=== PATIENT | male | born 1945 | race African-American/Black ===

== ENCOUNTER 2016-11-03 20:42 | Emergency (ER) | payer MEDICARE, BC, OTHER ==
[2016-11-03] MEDS ORDERED: ASPIRIN 81 MG TABLET, CHEWABLE PO ONE (20:46)
--- NOTE | 2016-11-03 20:48 | ER Document Report ---
ED Medical Screen (RME) - General Stated Complaint: CHEST PAIN Mode of Arrival: Ambulatory Information source: Patient Notes: Patient presents to the emergency department with complaints of left-sided chest pain that started this morning. Denies fever vomiting nausea diarrhea. Denies history of cardiac disease. Patient does have history of high blood pressure. EKG sinus rhythm I have greeted and performed a rapid initial assessment of this patient. A comprehensive ED assessment and evaluation of the patient, analysis of test results and completion of the medical decision making process will be conducted by additional ED providers. TRAVEL OUTSIDE OF THE [place] IN LAST 30 DAYS: No - Related Data Allergies/Adverse Reactions: No Known Allergies Allergy (Verified 10/05/12 10:11) Past Medical History - Past Medical History Cardiac Medical History: Reports: Hx Hypercholesterolemia, Hx Hypertension Denies: Hx Heart Attack Pulmonary Medical History: Denies: Hx Asthma, Hx Tuberculosis Neurological Medical History: Denies: Hx Cerebrovascular Accident, Hx Seizures GI Medical History: Reports: Hx Diverticulitis, Hx Gastroesophageal Reflux Disease. Denies: Hx Crohn's Disease, Hx Hepatitis, Hx Hiatal Hernia, Hx Irritable Bowel, Hx Liver Failure, Hx Ulcer Musculoskeltal Medical History: Reports Hx Arthritis, Denies Hx Fibromyalgia, Denies Hx Muscular Dystrophy Traumatic Medical History: Denies: Hx Fractures Infectious Medical History: Denies: Hx Hepatitis Past Surgical History: Reports: Hx Appendectomy, Hx Bowel Surgery - r/t diverticulitis. Denies: Hx Cholecystectomy, Hx Colostomy, Hx Coronary Artery Bypass Graft, Hx Gastric Bypass Surgery, Hx Herniorrhaphy, Hx Open Heart Surgery , Hx Pacemaker, Hx Tonsillectomy - Immunizations Hx Diphtheria, Pertussis, Tetanus Vaccination: Yes
[2016-11-03 21:14] LABS: ABSOLUTE EOSINOPHILS # (AUTO) 0.2 10^3/uL (0.0-0.6); ABSOLUTE LYMPHOCYTES (AUTO) 2.4 10^3/uL (0.5-4.7); ABSOLUTE MONOCYTES (AUTO) 0.8 10^3/uL (0.1-1.4); ABSOLUTE NEUT (AUTO) 2.9 10^3/uL (1.7-8.2); BASOPHILS % (AUTO) 0.6 % (0-2); EOSINOPHILS % (AUTO) 3.4 % (0-6); HEMATOCRIT 38.7 % (37.9-51.0); HEMOGLOBIN 12.7 g/dL (13.5-17.0); HGB HCT DIFFERENCE -0.6; LYMPHOCYTES % (AUTO) 38.4 % (13-45); MEAN CORPUSCULAR HEMOGLOBIN 27.6 pg (27.0-33.4); MEAN CORPUSCULAR HGB CONC 32.8 g/dL (32.0-36.0); MEAN CORPUSCULAR VOLUME 84 fl (80-97); MONOCYTES % (AUTO) 12.3 % (3-13); RED BLOOD COUNT 4.59 10^6/uL (4.35-5.55); RED CELL DISTRIBUTION WIDTH 13.5 % (11.5-14.0); SEGMENTED NEUTROPHILS % (AUTO) 45.3 % (42-78); WHITE BLOOD COUNT 6.3 10^3/uL (4.0-10.5)
[2016-11-03 21:30] LABS: ALANINE AMINOTRANSFERASE 32 U/L (21-72); ALBUMIN 4.3 g/dL (3.5-5.0); ALKALINE PHOSPHATASE 64 U/L (38-126); ANION GAP 10 (5-19); ASPARTATE AMINO TRANSFERASE 25 U/L (17-59); BILIRUBIN,TOTAL 0.6 mg/dL (0.2-1.3); BLOOD UREA NITROGEN 14 mg/dL (7-20); CALCIUM 9.2 mg/dL (8.4-10.2); CARBON DIOXIDE 26 mmol/L (22-30); CHLORIDE 104 mmol/L (98-107); CREATINE KINASE 122 U/L (55-170); CREATININE RESULT 0.97 mg/dL (0.52-1.25); GLUCOSE 96 mg/dL (75-110); LIPASE 65.3 U/L (23-300); POTASSIUM 4.1 mmol/L (3.6-5.0); TOTAL PROTEIN 6.9 g/dL (6.3-8.2)
[2016-11-03 21:42] LABS: CREATINE KINASE MB 0.82 ng/mL (<4.55); TROPONIN I < 0.012 ng/mL
[2016-11-03] MEDS ORDERED: NITROGLYCERIN 0.4 MG/TAB 25 TAB/BOTTLE SL PRN (21:53)
[2016-11-03] MEDS ORDERED: MAG HYDROX/AL HYDROX/SIMETH SUSP 30 ML UDCUP PO ONE (22:34)
[2016-11-03] MEDS ORDERED: LIDOCAINE 2% VISCOUS SOLN 20 ML UDCUP PO ONE (22:34)
[2016-11-03] MEDS ORDERED: METOCLOPRAMIDE HCL ORAL SOLN 10 MG/10 ML UDCUP PO ONE (22:34)
[2016-11-03 23:47] LABS: CREATINE KINASE MB 0.66 ng/mL (<4.55)
--- NOTE | 2016-11-03 23:55 | ER Document Report ---
ED Cardiac - General Chief Complaint: Chest Pain > 30 Stated Complaint: CHEST PAIN Mode of Arrival: Ambulatory Notes: 71 year old male with chest pain radiating down left arm since 929 today. Pain began at rest and is constant. It is worsened by eating. He notes significant belching. No vomiting. Slight epigastric pain. He had recent endoscopy by Dr. Haas with no significant findings. Stress test was by Dr. Martin "a while ago" and was negative. Pain 1-2/5 on initial exam. TRAVEL OUTSIDE OF THE [place] IN LAST 30 DAYS: No - Related Data Allergies/Adverse Reactions: No Known Allergies Allergy (Verified 11/03/16 20:53) Past Medical History - General Information source: Patient - Social History Smoking Status: Never Smoker Chew tobacco use (# tins/day): No Frequency of alcohol use: Occasional Drug Abuse: None Family History: Reviewed & Not Pertinent Patient has suicidal ideation: No Patient has homicidal ideation: No - Past Medical History Cardiac Medical History: Reports: Hx Hypercholesterolemia, Hx Hypertension Denies: Hx Heart Attack Pulmonary Medical History: Denies: Hx Asthma, Hx Tuberculosis Neurological Medical History: Denies: Hx Cerebrovascular Accident, Hx Seizures Renal/ Medical History: Denies: Hx Peritoneal Dialysis GI Medical History: Reports: Hx Diverticulitis, Hx Gastroesophageal Reflux Disease. Denies: Hx Crohn's Disease, Hx Hepatitis, Hx Hiatal Hernia, Hx Irritable Bowel, Hx Liver Failure, Hx Ulcer Musculoskeltal Medical History: Reports Hx Arthritis, Denies Hx Fibromyalgia, Denies Hx Muscular Dystrophy Traumatic Medical History: Denies: Hx Fractures Infectious Medical History: Denies: Hx Hepatitis Past Surgical History: Reports: Hx Appendectomy, Hx Bowel Surgery - r/t diverticulitis. Denies: Hx Cholecystectomy, Hx Colostomy, Hx Coronary Artery Bypass Graft, Hx Gastric Bypass Surgery, Hx Herniorrhaphy, Hx Open Heart Surgery , Hx Pacemaker, Hx Tonsillectomy - Immunizations Hx Diphtheria, Pertussis, Tetanus Vaccination: Yes Hx Pneumococcal Vaccination: 08/09/11 Review of Systems - Review of Systems Constitutional: denies: Fever, Malaise EENT: denies: Sinus pressure, Throat pain Cardiovascular: Chest pain. denies: Heart racing, Dyspnea, Syncope Respiratory: denies: Cough, Short of breath Gastrointestinal: denies: Nausea, Vomiting Genitourinary: denies: Flank pain Musculoskeletal: denies: Leg swelling Skin: denies: Rash Hematologic/Lymphatic: denies: Swollen glands Neurological/Psychological: denies: Numbness, Tingling Physical Exam - Vital signs Vitals: Temp Pulse Resp BP Pulse Ox 98.0 F 85 18 135/71 H 94 11/03/16 20:46 11/03/16 20:46 11/03/16 20:46 11/03/16 20:46 11/03/16 20:46 - General Notes: smiling, affable male who appears much younger than stated age and is in no acute distress - HEENT Head: Normocephalic Pupils: PERRL Mouth/Lips: Normal Mucous membranes: Normal Pharynx: Normal Neck: Normal - Respiratory Respiratory status: No respiratory distress Breath sounds: Normal Chest palpation: Normal - Cardiovascular Rhythm: Regular Murmur: No - Abdominal Inspection: Normal Bowel sounds: Normal Tenderness: Nontender - Back Back: Normal - Extremities General upper extremity: Normal inspection General lower extremity: Normal inspection. No: Edema - Neurological Neuro grossly intact: Yes Orientation: AAOx4 Motor strength normal: LUE, RUE, LLE, RLE - Psychological Associated symptoms: Normal affect - Skin Skin Temperature: Warm Skin Moisture: Dry Skin Color: Normal Course - Re-evaluation Re-evalutation: 11/03/16 23:53 pt feeling better and wants to go home. Advised at minimum to check second set of enzymes. GI cocktail given for his burping. 11/04/16 00:02 symptoms completely resolved with GI cocktail. EKG, CXR and two sets of enzymes are negative. Pt prefers to go home and follow up with his doctor. REturn precautions discussed with pt and his . - Vital Signs Vital signs: Temp Pulse Resp BP Pulse Ox 98.0 F 85 18 135/71 H 94 11/03/16 20:46 11/03/16 20:46 11/03/16 20:46 11/03/16 20:46 11/03/16 20:46 - Laboratory Result Diagrams: 11/03/16 21:00 11/03/16 21:00 Laboratory results interpreted by me: 11/03/16 21:00 Hgb 12.7 L - Diagnostic Test Radiology reviewed: Image reviewed, Reports reviewed - EKG Interpretation by Me EKG shows normal: Sinus rhythm Rate: Normal Rhythm: NSR - 76, no ST elevations or depressions Discharge - Discharge Clinical Impression: Atypical chest pain Condition: Good Disposition: HOME, SELF-CARE Additional Instructions: follow up with your doctor tomorrow for further evaluation. An outpatient stress test is recommended. Return to ER if you have further pain or any new concerns. Referrals: ALBERT RODGERS MD [Primary Care Provider] - Follow up as needed
[2016-11-03 23:56] LABS: TROPONIN I < 0.012 ng/mL
[2016-11-04 01:27] VITALS: BP 121/77
--- NOTE | 2016-11-04 12:46 | EKG REPORT ---
SEVERITY:- NORMAL ECG - SINUS RHYTHM : Confirmed by: Anel Wadsworth MD 04-Nov-2016 12:46:13
== END 2016-11-04 01:00 | disposition home or self-care (01) ==
LOC: ER 20:42
DX: R07.89 Other chest pain (principal); R10.13 Epigastric pain; I10 Essential (primary) hypertension; Z90.49 Acquired absence of other specified parts of digestive tract
CPT/HCPCS: 93005; 99285; 36415; 82553; 82550; 83690; 85025; 80053; 84484; 71020; 93010; A9270 ×2; J3490

== ENCOUNTER → 2016-11-23 | Outpatient (CLI) | payer MEDICARE, OTHER ==
[~2016-11-23] MED LIST: REGADENOSON INJ 0.4 MG/5 ML DISP.SYRIN IV ONE
--- NOTE | 2016-11-23 20:47 | DRAGON STRESS TEST REPORT ---
ntravenous Lexiscan Cardiolite stress test using single photon emmision computerized tomography. Date of procedure: 11/23/2016 Ordering Provider: Dr. Anel Wadsworth. Primary Care Physician: Indication: Chest pain. Coronary risk factors: Age and dyslipidemia. Resting EKG: Sinus rhythm. Within Normal Limits Stress EKG: No changes of ischemia. The patient had no chest pain or discomfort, and there were no arrhythmias seen Reason for termination: Protocol. Conclusions: Normal EKG and hemodynamic response to IV Lexiscan. Nuclear data: At rest the patient was given 14.67 millicuries of technetium 99m sestamibi injected intravenously. As per protocol rest non gated SPECT images were obtained. Subsequently the patient was given intravenous Lexiscan at a dose of 0.4 mg in 5 mL intravenously, followed by flush with normal saline. Subsequently the stress dose of 42.9 millicuries of technetium 99m sestamibi was injected intravenously. As per protocol stress gated images were obtained. Nuclear interpretation: Review of images showed that there is bowel contamination artifact. There is a mild perfusion defect in the stress images involving the inferior wall. Also there is slightly decreased motion contraction and thickening back gated study. Of the inferior wall Segments of the myocardium had normal perfusion at rest. The rest of the segments of the myocardium had normal perfusion post stress with IV Lexiscan. All segments of the myocardium had normal motion, contraction, and thickening by gated study. T. I D. ratio was abnormal at 1.42. This may not be reliable, due to bowel contamination artifact. Computer read rest, and stress left ventricular ejection fraction were 65 %, and 57 %, respectively. Visually both the stress and rest ejection fractions were normal, and greater than 60%. Conclusion: 1. There is scintigraphic evidence of Lexiscan induced mild myocardial ischemia involving the inferior wall. 2. Cannot exclude scintigraphic evidence of mild myocardial infarction/scar involving the inferior wall. Recommendations: 1.Aggressive medical treatment of coronary artery disease. 2.Aggressive risk factor modification, and treating the underlying co- morbidities. 3. Cardiac catheterization if the patient continues to have chest pain. 4. Close medical and cardiology follow-up of the patient. [facility]
== END ==
LOC: RAD 08:01
PROVIDERS: ATTEND Specialist
DX: R07.9 Chest pain, unspecified (principal)
CPT/HCPCS: 93017; 78452; A9500; J2785; Q9969

== ENCOUNTER → 2017-03-08 | Outpatient (CLI) | payer MEDICARE, OTHER | LOC: OD 07:40 | PROVIDERS: ATTEND Internal Medicine | DX: R19.7 Diarrhea, unspecified (principal) ==

== ENCOUNTER → 2017-03-10 | Outpatient (CLI) | payer MEDICARE, OTHER ==
--- NOTE | 2017-03-10 14:27 | RADIOLOGY REPORT (SQ) ---
EXAM DESCRIPTION: CT ABD/PELVIS WITH IV ORAL COMPLETED DATE/TIME: 03/10/2017 2:02 pm REASON FOR STUDY: INCISIONAL HERNIA W/O OBSTRUCTION OR GANGRENE K43.2 INCISIONAL HERNIA WITHOUT OBS TRUCTION OR GANGRENE R11.0 NAUSEA R10.33 PERIUMBILICAL PAIN COMPARISON: 11/27/2013 TECHNIQUE: CT scan of the abdomen and pelvis performed with intravenous and oral contrast using dada rupesh scanning technique with dynamic intravenous contrast injection. Images reviewed with lung, soft t issue, and bone windows. Reconstructed coronal and sagittal MPR images reviewed. Delayed images for e valuation of the urinary system also acquired. All images stored on PACS. All CT scanners at this facility use dose modulation, iterative reconstruction, and/or weight based d osing when appropriate to reduce radiation dose to as low as reasonably achievable (ALARA). [facility]: Dose Right [facility]: CareDose [facility]: Dose Right [facility]: Teradose 4D [facility]: [employer] CONTRAST TYPE AND DOSE: 100 mL Isovue 370- low osmolar. RENAL FUNCTION: Creatinine 1.1 RADIATION DOSE: 24.02mGy. LIMITATIONS: None. FINDINGS: LOWER CHEST: No significant findings. No nodules or infiltrates. LIVER: Normal size. No masses or dilated ducts. SPLEEN: Normal size. No focal lesions. PANCREAS: No masses. No significant calcifications. No adjacent inflammation or peripancreatic fluid collections. Pancreatic duct not dilated. GALLBLADDER: No identified stones by CT criteria. No inflammatory changes to suggest cholecystitis. ADRENAL GLANDS: No significant masses or asymmetry. RIGHT KIDNEY AND URETER: No solid masses. No significant calcification. No hydronephrosis or hydroure ter. LEFT KIDNEY AND URETER: No solid masses. No significant calcification. No hydronephrosis or hydrouret er. AORTA AND VESSELS: No aneurysm. No dissection. Renal arteries, SMA, celiac without stenosis. RETROPERITONEUM: No retroperitoneal adenopathy, hemorrhage or masses. BOWEL AND PERITONEAL CAVITY: Prior right hemicolectomy. Diverticulosis. No obstruction. No visualiz ed masses. No free fluid. No inflammatory changes or thickening of bowel wall. APPENDIX: Surgically absent. PELVIS: No significant masses. Normal bladder. No free fluid. ABDOMINAL WALL: Small midline incisional hernia containing fat. BONES: No significant or acute findings. OTHER: No other significant finding. IMPRESSION: No acute findings in the abdomen or pelvis. TECHNICAL DOCUMENTATION: JOB ID: [id number] Quality ID # [id number]: Final reports with documentation of one or more dose reduction techniques (e.g., Au tomated exposure control, adjustment of the mA and/or kV according to patient size, use of iterative reconstruction technique) 2010 [employer]- All Rights Reserved
== END ==
LOC: RAD 13:06
PROVIDERS: ATTEND Internal Medicine Gastroenterology
DX: K43.2 Incisional hernia without obstruction or gangrene (principal); R11.0 Nausea; R10.33 Periumbilical pain; K21.9 Gastro-esophageal reflux disease without esophagitis
CPT/HCPCS: 74177; 82565

== ENCOUNTER 2017-07-22 08:27 | Emergency (ER) | payer MEDICARE, OTHER ==
--- NOTE | 2017-07-22 09:28 | ER Document Report ---
ED GI/ - General Chief Complaint: Abdominal Pain Stated Complaint: LEFT SIDE PAIN Time Seen by Provider: 07/22/17 09:28 Mode of Arrival: Ambulatory Information source: Patient Notes: 72 yo non CAD, non smoker, non drug, beer on weekends 1-2, htn, non dm, hyperlipedemic, GERD, diverticulitis (), partial colectomy c/o bad belching- "acid reflux" after eating or drinking, lasts 30-40 minutes, recurs after eating or drinking again, worse when supine, soreness left upper abdomen, intermittent retrosternal left side chest pain- 20 to 30min (each episode) lastly 4 pm 10-13, for 2 weeks, worse if raises left arm and after eating. PCP : ALBERT and dr. gomes. No black or blood in stools. Fam Hx: dad [place] age 63. Dr Otto 7-8 months ago, EGD, Colonoscopy done, negative. Symptoms at that time were heartburn and mild belching, not like it is now. Came to ER today because of bad belching and left sided chest pain. TRAVEL OUTSIDE OF THE [place] IN LAST 30 DAYS: No - Related Data Allergies/Adverse Reactions: No Known Allergies Allergy (Verified 07/22/17 08:28) Past Medical History - General Information source: Patient - Social History Smoking Status: Never Smoker Frequency of alcohol use: Occasional - beer on weekends Drug Abuse: None Lives with: Family Family History: Reviewed & Not Pertinent - Past Medical History Cardiac Medical History: Reports: Hx Hypercholesterolemia, Hx Hypertension Renal/ Medical History: Denies: Hx Peritoneal Dialysis GI Medical History: Reports: Hx Diverticulitis, Hx Gastroesophageal Reflux Disease Musculoskeltal Medical History: Reports Hx Arthritis Past Surgical History: Reports: Hx Appendectomy, Hx Bowel Surgery - r/t diverticulitis - Immunizations Hx Diphtheria, Pertussis, Tetanus Vaccination: Yes Hx Pneumococcal Vaccination: 08/09/11 Review of Systems - Review of Systems Constitutional: No symptoms reported EENT: No symptoms reported Cardiovascular: See HPI Respiratory: No symptoms reported Gastrointestinal: See HPI Genitourinary: No symptoms reported Male Genitourinary: No symptoms reported Musculoskeletal: No symptoms reported Skin: No symptoms reported Hematologic/Lymphatic: No symptoms reported Neurological/Psychological: No symptoms reported Physical Exam - Vital signs Vitals: Temp Pulse Resp BP Pulse Ox 98.8 F 78 18 141/84 H 97 07/22/17 08:28 07/22/17 08:28 07/22/17 08:28 07/22/17 08:28 07/22/17 08:28 Interpretation: Normal - General General appearance: Appears well, Alert - HEENT Head: Normocephalic, Atraumatic Eyes: Normal Conjunctiva: Normal Pupils: PERRL Neck: Supple. No: Lymphadenopathy - Respiratory Respiratory status: No respiratory distress Chest status: Nontender Breath sounds: Normal Chest palpation: Normal - Cardiovascular Rhythm: Regular Heart sounds: Normal auscultation Murmur: No - Abdominal Inspection: Normal Distension: No distension Bowel sounds: Normal Tenderness: Tender - mild epigastric, LUQ Organomegaly: No organomegaly. No: Hepatomegaly, Splenomegaly - Back Back: Normal, Nontender. No: CVA tenderness - Extremities General upper extremity: Normal inspection, Nontender, Normal color, Normal ROM , Normal temperature General lower extremity: Normal inspection, Nontender, Normal color, Normal ROM , Normal temperature, Normal weight bearing. No: Garrett's sign - Neurological Neuro grossly intact: Yes Cognition: Normal Orientation: AAOx4 [place] Coma Scale Eye Opening: Spontaneous Fabián Coma Scale Verbal: Oriented [place] Coma Scale Motor: Obeys Commands [place] Coma Scale Total: 15 Speech: Normal Motor strength normal: LUE, RUE, LLE, RLE Sensory: Normal - Psychological Associated symptoms: Normal affect, Normal mood - Skin Skin Temperature: Warm Skin Moisture: Dry Skin Color: Normal Skin irregularity: negative: Rash Course - Re-evaluation Re-evalutation: 07/22/17 14:43 Patient states the midline and left-sided chest pain resolved with GI cocktail. He had this pain constant all last week. The first set of cardiac enzymes are negative. EKG is normal sinus rhythm no change from previous 07/22/17 15:[address] sifuentes, he wants repeat troponin now, get abd/pelvis IV contrast CT, and add lipase 07/22/17 16:43 CT scan shows early mid descending colon diverticulitis I will start on Flagyl and Cipro. Second troponin is negative. Lipase is normal. 07/22/17 16:54 dr sifuentes saw the pt at this time. - Vital Signs Vital signs: Temp Pulse Resp BP Pulse Ox 98.0 F 78 20 135/87 H 100 07/22/17 18:28 10/14/17 18:28 07/22/17 18:28 07/22/17 18:28 07/22/17 18:28 - Laboratory Result Diagrams: 07/22/17 09:48 07/22/17 09:48 Laboratory results interpreted by me: 07/22/17 07/22/17 09:48 09:48 Hgb 12.7 L Hct 37.1 L Creatine Kinase 369 H Discharge - Discharge Clinical Impression: early diverticulitis, Burping Chest pain Qualifiers: Chest pain type: unspecified Qualified Code(s): R07.9 - Chest pain, unspecified GERD (gastroesophageal reflux disease) Qualifiers: Esophagitis presence: esophagitis presence not specified Qualified Code(s): K21.9 - Gastro-esophageal reflux disease without esophagitis Condition: Good Disposition: HOME, SELF-CARE Instructions: Ciprofloxacin ([facility]), Chest Pain of Unclear Cause ([facility]), Diverticulitis ([facility]), Metronidazole ([facility]), Reflux Disease (GERD) ([facility]) Additional Instructions: restart the dexilant, then new prescription should be less expensive copy of labs, ct scan, xrays and ekg's given to you to er if worse no alcohol take the antibioitics until gone Please complete the patient satisfaction survey if you get one, and return it.. If you do not receive a survey, then you can go to the [facility] website, [email or web address] and place your comments about your very good care. Thank you very much. It was a pleasure being your medical provider today. Prescriptions: Ciprofloxacin HCl [Cipro 750 mg Tablet] 750 mg PO BID #20 tablet Metronidazole [Flagyl 500 mg Tablet] 500 mg PO Q6H #40 tablet Pantoprazole Sodium [Protonix] 40 mg PO DAILY #30 tablet. Referrals: ALBERT GOMES MD [Primary Care Provider] - Follow up in 3-5 days KARINE OTTO MD [ACTIVE STAFF] - Follow up in 1 week
[2017-07-22] MEDS ORDERED: LIDOCAINE 2% VISCOUS SOLN 20 ML UDCUP PO ONE (09:50)
[2017-07-22] MEDS ORDERED: MAG HYDROX/AL HYDROX/SIMETH SUSP 30 ML UDCUP PO ONE (09:50)
[2017-07-22] MEDS ORDERED: ASPIRIN 81 MG TABLET, CHEWABLE PO ONE (09:50)
[2017-07-22] MEDS ORDERED: LANSOPRAZOLE 30 MG TAB.RAP.DR PO ONE (10:02)
[2017-07-22 10:28] LABS: ABSOLUTE EOSINOPHILS # (AUTO) 0.2 10^3/uL (0.0-0.6); ABSOLUTE LYMPHOCYTES (AUTO) 1.6 10^3/uL (0.5-4.7); ABSOLUTE MONOCYTES (AUTO) 0.6 10^3/uL (0.1-1.4); ABSOLUTE NEUT (AUTO) 2.7 10^3/uL (1.7-8.2); BASOPHILS % (AUTO) 0.5 % (0-2); EOSINOPHILS % (AUTO) 3.3 % (0-6); HEMATOCRIT 37.1 % (37.9-51.0); HEMOGLOBIN 12.7 g/dL (13.5-17.0); LYMPHOCYTES % (AUTO) 31.3 % (13-45); MEAN CORPUSCULAR HEMOGLOBIN 28.6 pg (27.0-33.4); MEAN CORPUSCULAR HGB CONC 34.4 g/dL (32.0-36.0); MEAN CORPUSCULAR VOLUME 83 fl (80-97); RED BLOOD COUNT 4.45 10^6/uL (4.35-5.55); RED CELL DISTRIBUTION WIDTH 13.2 % (11.5-14.0); SEGMENTED NEUTROPHILS % (AUTO) 53.9 % (42-78); WHITE BLOOD COUNT 5.1 10^3/uL (4.0-10.5)
--- NOTE | 2017-07-22 10:33 | RADIOLOGY REPORT (SQ) ---
EXAM DESCRIPTION: CHEST SINGLE VIEW COMPLETED DATE/TIME: 07/22/2017 10:17 am REASON FOR STUDY: chest pain COMPARISON: 11/03/2016 EXAM PARAMETERS: NUMBER OF VIEWS: One view. TECHNIQUE: Single frontal radiographic view of the chest acquired. RADIATION DOSE: NA LIMITATIONS: None. FINDINGS: LUNGS AND PLEURA: No opacities, masses or pneumothorax. No pleural effusion. MEDIASTINUM AND HILAR STRUCTURES: No masses. Contour normal. HEART AND VASCULAR STRUCTURES: Mild cardiomegaly BONES: No acute findings. HARDWARE: None in the chest. OTHER: No other significant finding. IMPRESSION: Mild cardiomegaly. No acute infiltrates TECHNICAL DOCUMENTATION: JOB ID: [id number]
[2017-07-22 10:49] LABS: ALANINE AMINOTRANSFERASE 29 U/L (21-72); ALBUMIN 3.9 g/dL (3.5-5.0); ALKALINE PHOSPHATASE 58 U/L (38-126); ANION GAP 10 (5-19); ASPARTATE AMINO TRANSFERASE 30 U/L (17-59); BILIRUBIN,DIRECT 0.3 mg/dL (0.0-0.4); BILIRUBIN,TOTAL 0.7 mg/dL (0.2-1.3); BLOOD UREA NITROGEN 10 mg/dL (7-20); CALCIUM 9.2 mg/dL (8.4-10.2); CARBON DIOXIDE 26 mmol/L (22-30); CHLORIDE 105 mmol/L (98-107); CREATINE KINASE 369 U/L (55-170); CREATININE RESULT 0.93 mg/dL (0.52-1.25); GLUCOSE 91 mg/dL (75-110); POTASSIUM 3.9 mmol/L (3.6-5.0); SODIUM 140.6 mmol/L (137-145); TOTAL PROTEIN 6.4 g/dL (6.3-8.2)
[2017-07-22 11:01] LABS: CREATINE KINASE MB 2.04 ng/mL (<4.55)
--- NOTE | 2017-07-22 11:01 | EKG REPORT ---
SEVERITY:- NORMAL ECG - SINUS RHYTHM : Confirmed by: Jovi Haskins MD 22-Jul-2017 11:01:42
[2017-07-22 11:04] LABS: TROPONIN I < 0.012 ng/mL
[2017-07-22 13:21] LABS: APPEARANCE,URINE CLEAR; BILIRUBIN,URINE NEGATIVE (NEGATIVE); GLUCOSE, URINE NEGATIVE (NEGATIVE); KETONES,URINE NEGATIVE (NEGATIVE); LEUKOCYTE ESTERASE,URINE NEGATIVE (NEGATIVE); NITRITE,URINE NEGATIVE (NEGATIVE); PROTEIN,URINE NEGATIVE (NEGATIVE); URINE SPECIFIC GRAVITY 1.009; UROBILINOGEN,URINE NEGATIVE mg/dL (<2.0)
--- NOTE | 2017-07-22 16:37 | ER Document Report ---
Doctor's Note Notes: Pt is a 72 yo M with PMH of htn, hyperlipedemic, GERD, diverticulitis (09), partial colectomy who presents with two weeks of intermittent "bad belching acid reflux" after eating or drinking, lasts 30-40 minutes, with retrosternal left side chest pain. Pt is exaserbated when supine, worse if raises left arm and after eating. Patient has a history of this upper epigastric discomfort previously with previous recent CT, endoscopy, with follow-up by gastroenterology. Examination is recorded by the nurse practitioner. In summary, patient is sitting up smiling in no acute distress. Heart and lung examination is unremarkable. Patient has some very mild tenderness to the epigastric region without rebound or guarding. No lower abdominal tenderness. No palpable masses or abdominal bruits present. Patient has no calf pain, leg swelling, or obvious edema present. EKG shows a heart rate of 64, normal sinus rhythm, normal axis, no obvious ST elevation or depression. Chest x-ray shows normal heart, normal mediastinum, no fractures, normal lung padilla, no pneumothorax. Given the above extensive history and physical examination with the patient's age, we will obtain a cardiac panel, liver panel, lipase, and a CT scan of the abdomen and pelvis. If this is unremarkable for acute pathology, we will obtain a repeat 3 hour troponin. If this too was unremarkable, we will most likely discharge the patient home with strict return precautions and follow-up with the play reader.
--- NOTE | 2017-07-22 16:40 | RADIOLOGY REPORT (SQ) ---
EXAM DESCRIPTION: CT ABD/PELVIS WITH IV ONLY COMPLETED DATE/TIME: 07/22/2017 3:52 pm REASON FOR STUDY: burping, left chest pain, mild epigastric tender COMPARISON: 02/25/2016 TECHNIQUE: CT scan of the abdomen and pelvis performed using helical scanning technique with dynamic intravenous contrast injection. No oral contrast. Images reviewed with lung, soft tissue, and bone windows. Reconstructed coronal and sagittal MPR images reviewed. Delayed images for evaluation of the urinary system also acquired. All images stored on PACS. All CT scanners at this facility use dose modulation, iterative reconstruction, and/or weight based d osing when appropriate to reduce radiation dose to as low as reasonably achievable (ALARA). [facility]: Dose Right [facility]: CareDose [facility]: Dose Right [facility]: Teradose 4D [facility]: [employer] CONTRAST TYPE AND DOSE: contrast/concentration: Isovue 370.00 mg/ml; Total Contrast Delivered: 100.0 ml; Total Saline Delivered: 72.0 ml RENAL FUNCTION: BUN 10; creatinine 0.93 RADIATION DOSE: Up-to-date CT equipment and radiation dose reduction techniques were employed. CTDIv ol: 14.4 - 18.9 mGy. DLP: 1995 mGy-cm.. LIMITATIONS: None. FINDINGS: LOWER CHEST: No significant findings. No nodules or infiltrates. LIVER: Normal size. No masses. No dilated ducts. SPLEEN: Normal size. No focal lesions. PANCREAS: No masses. No significant calcifications. No adjacent inflammation or peripancreatic fluid collections. Pancreatic duct not dilated. GALLBLADDER: No identified stones by CT criteria. No inflammatory changes to suggest cholecystitis. ADRENAL GLANDS: No significant masses or asymmetry. RIGHT KIDNEY AND URETER: No solid masses. No significant calcifications. No hydronephrosis or hyd roureter. LEFT KIDNEY AND URETER: No solid masses. No significant calcifications. No hydronephrosis or hydr oureter. AORTA AND VESSELS: No aneurysm. No dissection. Renal arteries, SMA, celiac without stenosis. RETROPERITONEUM: No retroperitoneal adenopathy, hemorrhage or masses. BOWEL AND PERITONEAL CAVITY: Status post partial colectomy ; the anastomosis appears to be intact. B ackground of diverticulosis noting trace mesenteric fat stranding adjacent to the descending colon. APPENDIX: Surgically absent. PELVIS: No mass. No free fluid. Normal bladder. ABDOMINAL WALL: No masses. No hernias. BONES: No significant or acute findings. OTHER: No other significant finding. IMPRESSION: Findings suggest mild or early diverticulitis involving the mid descending colon. Statu s post partial colectomy without evidence of anastomotic complication. TECHNICAL DOCUMENTATION: JOB ID: [id number] Quality ID # [id number]: Final reports with documentation of one or more dose reduction techniques (e.g., Au tomated exposure control, adjustment of the mA and/or kV according to patient size, use of iterative reconstruction technique) 2010 [employer]- All Rights Reserved
[2017-07-22] MEDS ORDERED: METRONIDAZOLE 500 MG TABLET PO ONE (16:42)
[2017-07-22] MEDS ORDERED: CIPROFLOXACIN HCL 750 MG TABLET PO ONE (16:42)
[2017-07-22 18:31] VITALS: BP 135/87
== END 2017-07-22 18:28 | disposition home or self-care (01) ==
LOC: ER 08:27
DX: K57.32 Diverticulitis of large intestine without perforation or abscess without bleeding (principal); K21.9 Gastro-esophageal reflux disease without esophagitis; R07.9 Chest pain, unspecified; R14.2 Eructation; R10.812 Left upper quadrant abdominal tenderness; R10.816 Epigastric abdominal tenderness; I10 Essential (primary) hypertension; Z90.49 Acquired absence of other specified parts of digestive tract
CPT/HCPCS: 93005; 99284; 36415; 87086; 82553; 82550; 83690; 83735; 85025; 80053; 81001; 84484; 71010; 74177; 93010; A9270 ×4; J3490

== ENCOUNTER 2017-08-22 08:13 | Emergency (ER) | payer MEDICARE, OTHER ==
--- NOTE | 2017-08-22 08:59 | ER Document Report ---
ED GI/ - General Mode of Arrival: Ambulatory Information source: Patient TRAVEL OUTSIDE OF THE [place] IN LAST 30 DAYS: No <KEARA FRYE - Last Filed: 08/22/17 10:34> <KADI CARUSO - Last Filed: 08/22/17 15:22> - General Chief Complaint: Abdominal Pain Stated Complaint: STOMACH PAIN, HEADACHE, LEFT SIDE WEAKNESS Time Seen by Provider: 08/22/17 08:26 Notes: Patient is a 72 year old male that presents to the emergency department today with complaints of a left sided headache and left lower abdominal pain. Patient states he has a history of diverticulitis and his symptoms today are consistent with his previous diverticulitis flares. Patient mentions that he has had major vision changes in his left eye over the last six months without any reason that he knows of. (KEARA FRYE) - Related Data Allergies/Adverse Reactions: No Known Allergies Allergy (Verified 08/22/17 08:22) Past Medical History - General Information source: Patient - Social History Smoking Status: Never Smoker Cigarette use (# per day): No Frequency of alcohol use: None Drug Abuse: None Lives with: Family Family History: Reviewed & Not Pertinent Patient has suicidal ideation: No Patient has homicidal ideation: No - Past Medical History Cardiac Medical History: Reports: Hx Hypercholesterolemia, Hx Hypertension GI Medical History: Reports: Hx Diverticulitis, Hx Gastroesophageal Reflux Disease Musculoskeltal Medical History: Reports Hx Arthritis Past Surgical History: Reports: Hx Appendectomy, Hx Bowel Surgery - r/t diverticulitis - Immunizations Hx Diphtheria, Pertussis, Tetanus Vaccination: Yes Hx Pneumococcal Vaccination: 08/09/11 <KEARA FRYE - Last Filed: 08/22/17 10:34> Review of Systems - Review of Systems Constitutional: No symptoms reported EENT: No symptoms reported Cardiovascular: No symptoms reported Respiratory: No symptoms reported Gastrointestinal: See HPI, Abdominal pain Genitourinary: No symptoms reported Male Genitourinary: No symptoms reported Musculoskeletal: No symptoms reported Skin: No symptoms reported Hematologic/Lymphatic: No symptoms reported Neurological/Psychological: See HPI, Headaches -: Yes All other systems reviewed and negative <KEARA FRYE - Last Filed: 08/22/17 10:34> Physical Exam - Vital signs Interpretation: Normal - General General appearance: Appears well, Alert - HEENT Head: Normocephalic, Atraumatic Eyes: Normal Pupils: PERRL - Respiratory Respiratory status: No respiratory distress Chest status: Nontender Breath sounds: Normal Chest palpation: Normal - Cardiovascular Rhythm: Regular Heart sounds: Normal auscultation Murmur: No - Abdominal Inspection: Normal Distension: No distension Bowel sounds: Normal Tenderness: Tender - LLQ. No: Guarding, Rebound Organomegaly: No organomegaly - Back Back: Normal, Nontender - Extremities General upper extremity: Normal inspection, Nontender, Normal color, Normal ROM , Normal temperature General lower extremity: Normal inspection, Nontender, Normal color, Normal ROM , Normal temperature, Normal weight bearing. No: Garrett's sign - Neurological Neuro grossly intact: Yes Cognition: Normal Orientation: AAOx4 Fabián Coma Scale Eye Opening: Spontaneous [place] Coma Scale Verbal: Oriented Fabián Coma Scale Motor: Obeys Commands [place] Coma Scale Total: 15 Speech: Normal Motor strength normal: LUE, RUE, LLE, RLE Sensory: Normal - Psychological Associated symptoms: Normal affect, Normal mood - Skin Skin Temperature: Warm Skin Moisture: Dry Skin Color: Normal <KADI CARUSO - Last Filed: 08/22/17 15:22> - Vital signs Vitals: Temp Pulse Resp BP Pulse Ox 98.6 F 72 20 140/84 H 97 08/22/17 08:19 08/22/17 08:19 08/22/17 08:19 08/22/17 08:19 08/22/17 08:19 Course - Laboratory Result Diagrams: 08/22/17 08:45 08/22/17 08:45 <KEARA FRYE - Last Filed: 08/22/17 10:34> - Laboratory Result Diagrams: 08/22/17 08:45 08/22/17 08:45 - Diagnostic Test Radiology reviewed: Reports reviewed <KADI CARUSO - Last Filed: 08/22/17 15:22> - Re-evaluation Re-evalutation: 08/22/17 15:20 Patient with no acute findings on CT. Cannot do MRI due to patient having metal in his face. Patient's headache is resolved after medication. Patient with diverticulitis on CT. Patient will have Cipro and Flagyl initiated. Patient has stable vitals and is feeling well. Able to take p.o. He is instructed to follow a clear liquid and then bland diet. He is to return immediately if he has any further symptoms or concerns. Understands and agrees with plan. Stable for discharge. (KADI CARUSO) - Vital Signs Vital signs: Temp Pulse Resp BP Pulse Ox 98.6 F 72 16 140/80 H 95 08/22/17 08:19 08/22/17 08:19 08/22/17 14:33 08/22/17 14:33 08/22/17 14:33 - Laboratory Laboratory results interpreted by me: 08/22/17 08/22/17 08/22/17 08:45 08:45 08:45 Hgb 12.9 L VBG HCO3 32.2 H Total Protein 5.9 L Discharge <KEARA FRYE - Last Filed: 08/22/17 10:34> <KADI CARUSO - Last Filed: 08/22/17 15:22> - Discharge Clinical Impression: Diverticulitis Qualifiers: Diverticulitis site: large intestine Diverticulitis bleeding: without bleeding Diverticulitis complication: without perforation or abscess Qualified Code(s): K57.32 - Diverticulitis of large intestine without perforation or abscess without bleeding Headache Qualifiers: Headache type: unspecified Headache chronicity pattern: acute headache Intractability: not intractable Qualified Code(s): R51 - Headache Condition: Stable Disposition: HOME, SELF-CARE Instructions: Diverticulitis ([facility]), Low Residue Diet ([facility]) Additional Instructions: Please follow-up with your doctor this week. Return immediately if you have any worsening symptoms or concerns. Prescriptions: Ondansetron [Zofran Odt 4 mg Tablet] 1 tab PO Q6HP PRN #15 tab.rapdis PRN Reason: For Nausea/Vomiting Ciprofloxacin HCl [Cipro 500 mg Tablet] 500 mg PO BID #30 tablet Metronidazole [Flagyl 500 mg Tablet] 500 mg PO Q6H #56 tablet Tramadol HCl 50 mg PO TIDP PRN #20 tablet PRN Reason: Scribe Attestation: 08/22/17 15:22 I personally performed the services described in the documentation, reviewed and edited the documentation which was dictated to the scribe in my presence, and it accurately records my words and actions. (KADI CARUSO) Scribe Documentation - Scribe Written by Scribe:: Nuria Trejo, 08/22/2017 1038 acting as scribe for :: Errol <KEARA FRYE - Last Filed: 08/22/17 10:34>
[2017-08-22 09:00] LABS: ABSOLUTE EOSINOPHILS # (AUTO) 0.2 10^3/uL (0.0-0.6); ABSOLUTE LYMPHOCYTES (AUTO) 1.6 10^3/uL (0.5-4.7); ABSOLUTE MONOCYTES (AUTO) 0.5 10^3/uL (0.1-1.4); ABSOLUTE NEUT (AUTO) 2.3 10^3/uL (1.7-8.2); BASOPHILS % (AUTO) 0.7 % (0-2); EOSINOPHILS % (AUTO) 4.4 % (0-6); HEMATOCRIT 38.5 % (37.9-51.0); HEMOGLOBIN 12.9 g/dL (13.5-17.0); HGB HCT DIFFERENCE 0.2; LYMPHOCYTES % (AUTO) 34.4 % (13-45); MEAN CORPUSCULAR HGB CONC 33.5 g/dL (32.0-36.0); MEAN CORPUSCULAR VOLUME 84 fl (80-97); MONOCYTES % (AUTO) 10.6 % (3-13); RED BLOOD COUNT 4.61 10^6/uL (4.35-5.55); RED CELL DISTRIBUTION WIDTH 12.9 % (11.5-14.0); SEGMENTED NEUTROPHILS % (AUTO) 49.9 % (42-78); WHITE BLOOD COUNT 4.7 10^3/uL (4.0-10.5)
[2017-08-22 09:04] LABS: VENOUS BLOOD BASE EXCESS 4.8 mmol/L; VENOUS BLOOD HCO3 32.2 mmol/L (20-32); VENOUS BLOOD PCO2 59.3 mmHg (35-63); VENOUS BLOOD PH 7.35 (7.30-7.42)
--- NOTE | 2017-08-22 09:11 | RADIOLOGY REPORT (SQ) ---
EXAM DESCRIPTION: CHEST PA/LAT COMPLETED DATE/TIME: 08/22/2017 9:04 am REASON FOR STUDY: near syncope COMPARISON: October 2016 EXAM PARAMETERS: NUMBER OF VIEWS: two views TECHNIQUE: Digital Frontal and Lateral radiographic views of the chest acquired. RADIATION DOSE: NA LIMITATIONS: none FINDINGS: LUNGS AND PLEURA: No opacities, masses or pneumothorax. No pleural effusion. MEDIASTINUM AND HILAR STRUCTURES: No masses or contour abnormalities. HEART AND VASCULAR STRUCTURES: Heart normal size. No evidence for failure. BONES: No acute findings. HARDWARE: None in the chest. OTHER: No other significant finding. IMPRESSION: NO SIGNIFICANT RADIOGRAPHIC FINDING IN THE CHEST. TECHNICAL DOCUMENTATION: JOB ID: [id number] [employer]- All Rights Reserved
[2017-08-22 09:22] LABS: PROTHROMBIN TIME 13.7 SEC (11.4-15.4)
[2017-08-22 09:32] LABS: ALANINE AMINOTRANSFERASE 33 U/L (21-72); ALBUMIN 3.8 g/dL (3.5-5.0); ALKALINE PHOSPHATASE 63 U/L (38-126); ANION GAP 8 (5-19); ASPARTATE AMINO TRANSFERASE 30 U/L (17-59); BILIRUBIN,DIRECT 0.3 mg/dL (0.0-0.4); BILIRUBIN,TOTAL 0.4 mg/dL (0.2-1.3); BLOOD UREA NITROGEN 10 mg/dL (7-20); CARBON DIOXIDE 29 mmol/L (22-30); CHLORIDE 104 mmol/L (98-107); CREATININE RESULT 0.85 mg/dL (0.52-1.25); GLUCOSE 97 mg/dL (75-110); POTASSIUM 4.6 mmol/L (3.6-5.0); SODIUM 141.1 mmol/L (137-145); TOTAL PROTEIN 5.9 g/dL (6.3-8.2)
[2017-08-22 09:33] LABS: APPEARANCE,URINE CLEAR; BILIRUBIN,URINE NEGATIVE (NEGATIVE); GLUCOSE, URINE NEGATIVE (NEGATIVE); KETONES,URINE NEGATIVE (NEGATIVE); LEUKOCYTE ESTERASE,URINE NEGATIVE (NEGATIVE); NITRITE,URINE NEGATIVE (NEGATIVE); PROTEIN,URINE NEGATIVE (NEGATIVE); URINE SPECIFIC GRAVITY 1.009; UROBILINOGEN,URINE NEGATIVE mg/dL (<2.0)
[2017-08-22] MEDS ORDERED: ACETAMINOPHEN 325 MG TABLET PO ONE (09:40)
--- NOTE | 2017-08-22 09:40 | EKG REPORT ---
SEVERITY:- NORMAL ECG - SINUS RHYTHM : Confirmed by: Cony Marr 22-Aug-2017 09:39:44
--- NOTE | 2017-08-22 10:18 | RADIOLOGY REPORT (SQ) ---
EXAM DESCRIPTION: CT LTD RENAL STONE PROTOCOL ON COMPLETED DATE/TIME: 08/22/2017 9:54 am REASON FOR STUDY: LLQ, flank pain COMPARISON: 07/22/2017 TECHNIQUE: CT scan of the abdomen and pelvis performed without intravenous or oral contrast. Images reviewed with lung, soft tissue, and bone windows. Reconstructed coronal and sagittal MPR images revi ewed. All images stored on PACS. All CT scanners at this facility use dose modulation, iterative reconstruction, and/or weight based d osing when appropriate to reduce radiation dose to as low as reasonably achievable (ALARA). [facility]: Dose Right [facility]: CareDose [facility]: Dose Right [facility]: Teradose 4D [facility]: LISNR RADIATION DOSE: Up-to-date CT equipment and radiation dose reduction techniques were employed. CTDIv ol: 12.9 mGy. DLP: 697 mGy-cm.mGy. LIMITATIONS: None. FINDINGS: LOWER CHEST: No significant findings. No nodules or infiltrates. NON-CONTRASTED LIVER, SPLEEN, ADRENALS: Evaluation limited by lack of IV contrast. No identified sign ificant masses. PANCREAS: No masses. No peripancreatic inflammatory changes. GALLBLADDER: No identified stones by CT criteria. No inflammatory changes to suggest cholecystitis. RIGHT KIDNEY AND URETER: No suspicious masses. Assessment limited by lack of IV contrast. No signif icant calcifications. No hydronephrosis or hydroureter. LEFT KIDNEY AND URETER: No suspicious masses. Assessment limited by lack of IV contrast. No signifi cant calcifications. No hydronephrosis or hydroureter. AORTA AND RETROPERITONEUM: No aneurysm. No retroperitoneal masses or adenopathy. BOWEL AND PERITONEAL CAVITY: There is thickening of the quinonez of a segment of the mid descending colo n with edematous or inflammatory changes in the adjacent mesenteric fat. Multiple diverticula are id entified and the appearance is consistent with diverticulitis. These findings are more extensive whe n correlated with the previous study. Again the patient is status post partial colectomy with surgic al sutures being identified in the right upper quadrant. APPENDIX: Status post appendectomy. PELVIS, BLADDER, AND ABDOMINAL WALL:No abnormal masses. No free fluid. Bladder normal. BONES: No significant findings. OTHER: No other significant finding. IMPRESSION: Findings consistent with diverticulitis involving a segment of the mid descending colon. These changes appear more extensive as compared to the previous study. Other findings as noted abo ve COMMENT: Quality ID # [id number]: Final reports with documentation of one or more dose reduction techniques (e.g., Automated exposure control, adjustment of the mA and/or kV according to patient size, use of iterative reconstruction technique) TECHNICAL DOCUMENTATION: JOB ID: [id number] [employer]- All Rights Reserved
--- NOTE | 2017-08-22 10:20 | RADIOLOGY REPORT (SQ) ---
EXAM DESCRIPTION: SKULL 1-3 VIEWS COMPLETED DATE/TIME: 08/22/2017 10:05 am REASON FOR STUDY: FOREIGN BODY EVAL FOR MRI CLEARANCE COMPARISON: None. TECHNIQUE: AP and lateral views of the skull LIMITATIONS: None. FINDINGS: A metallic foreign body is identified in the superficial soft tissues in the right frontal region laterally. Bony calvaria is intact. Paranasal sinuses are well-aerated. IMPRESSION: Metallic foreign body in the superficial soft tissues in the right frontal region latera lly. TECHNICAL DOCUMENTATION: JOB ID: [id number] [employer]- All Rights Reserved
--- NOTE | 2017-08-22 10:31 | RADIOLOGY REPORT (SQ) ---
EXAM DESCRIPTION: CT HEAD WITHOUT COMPLETED DATE/TIME: 08/22/2017 10:17 am REASON FOR STUDY: headache, vision changes COMPARISON: None. TECHNIQUE: Axial images acquired through the brain without intravenous contrast. Images reviewed wi th bone, brain and subdural windows. Images stored on PACS. All CT scanners at this facility use dose modulation, iterative reconstruction, and/or weight based d osing when appropriate to reduce radiation dose to as low as reasonably achievable (ALARA). [facility]: Dose Right [facility]: CareDose [facility]: Dose Right [facility]: Teradose 4D [facility]: [employer] RADIATION DOSE: Up-to-date CT equipment and radiation dose reduction techniques were employed. CTDIv ol: 64.6 mGy. DLP: 1163 mGy-cm. mGy. LIMITATIONS: None. FINDINGS: VENTRICLES: Normal size and contour. CEREBRUM: No masses. No hemorrhage. No midline shift. No evidence for acute infarction. Normal gra y/white matter differentiation. No areas of low density in the white matter. CEREBELLUM: No masses. No hemorrhage. No alteration of density. No evidence for acute infarction. EXTRAAXIAL SPACES: No fluid collections. No masses. ORBITS AND GLOBE: No intra- or extraconal masses. Normal contour of globe without masses. CALVARIUM: No fracture. PARANASAL SINUSES: A large mucosal polyp or retention cyst is identified in the right maxillary antra . SOFT TISSUES: No mass or hematoma. OTHER: Metallic foreign body is identified in the superficial soft tissues in the right frontal regio n laterally. IMPRESSION: No significant intracranial abnormalities were identified. Other findings as noted abov e EVIDENCE OF ACUTE STROKE: NO. COMMENT: Quality ID # [id number]: Final reports with documentation of one or more dose reduction techniques (e.g., Automated exposure control, adjustment of the mA and/or kV according to patient size, use of iterative reconstruction technique) TECHNICAL DOCUMENTATION: JOB ID: [id number] [employer]- All Rights Reserved
[2017-08-22] MEDS ORDERED: PROCHLORPERAZINE EDISYLATE INJ 10 MG/2 ML VIAL IV ONE (12:53)
[2017-08-22] MEDS ORDERED: CIPROFLOXACIN HCL 500 MG TABLET PO ONE (12:53)
[2017-08-22] MEDS ORDERED: DIPHENHYDRAMINE HCL 50 MG/ML VIAL IV ONE (12:53)
[2017-08-22] MEDS ORDERED: METRONIDAZOLE 500 MG TABLET PO ONE (12:53)
[2017-08-22 14:39] VITALS: BP 140/80
== END 2017-08-22 14:35 | disposition home or self-care (01) ==
LOC: ER 08:13
DX: K57.32 Diverticulitis of large intestine without perforation or abscess without bleeding (principal); R51 Headache; H53.9 Unspecified visual disturbance; I10 Essential (primary) hypertension; Z90.49 Acquired absence of other specified parts of digestive tract
CPT/HCPCS: 93005; 99285; 96374; 96375; 36415; 87040; 87086; 85025; 85610; 80053; 81001; 84484; 82803; 83605; 71020; 70250; 70450; 76380; 93010; A9270 ×3; J1200; J0780

== ENCOUNTER 2017-10-05 07:24 | Emergency (ER) | payer MEDICARE, OTHER ==
[2017-10-05] MEDS ORDERED: ASPIRIN 81 MG TABLET, CHEWABLE PO ONE ×2 (07:38→08:29)
[2017-10-05 07:52] LABS: ABSOLUTE EOSINOPHILS # (AUTO) 0.2 10^3/uL (0.0-0.6); ABSOLUTE LYMPHOCYTES (AUTO) 1.7 10^3/uL (0.5-4.7); ABSOLUTE MONOCYTES (AUTO) 0.7 10^3/uL (0.1-1.4); ABSOLUTE NEUT (AUTO) 3.3 10^3/uL (1.7-8.2); BASOPHILS % (AUTO) 0.5 % (0-2); EOSINOPHILS % (AUTO) 3.1 % (0-6); HEMATOCRIT 40.2 % (37.9-51.0); HEMOGLOBIN 13.4 g/dL (13.5-17.0); LYMPHOCYTES % (AUTO) 28.2 % (13-45); MEAN CORPUSCULAR HEMOGLOBIN 27.6 pg (27.0-33.4); MEAN CORPUSCULAR HGB CONC 33.4 g/dL (32.0-36.0); MEAN CORPUSCULAR VOLUME 83 fl (80-97); MONOCYTES % (AUTO) 11.5 % (3-13); PLATELET COUNT 211 10^3/uL (150-450); RED BLOOD COUNT 4.85 10^6/uL (4.35-5.55); RED CELL DISTRIBUTION WIDTH 13.4 % (11.5-14.0); SEGMENTED NEUTROPHILS % (AUTO) 56.7 % (42-78); TOTAL CELLS COUNTED % (AUTO) 100 %; WHITE BLOOD COUNT 5.9 10^3/uL (4.0-10.5)
[2017-10-05] MEDS ORDERED: METOCLOPRAMIDE HCL ORAL SOLN 10 MG/10 ML UDCUP PO ONE (08:24)
[2017-10-05] MEDS ORDERED: MAG HYDROX/AL HYDROX/SIMETH SUSP 30 ML UDCUP PO ONE (08:24)
[2017-10-05] MEDS ORDERED: LIDOCAINE 2% VISCOUS SOLN 20 ML UDCUP PO ONE (08:24)
[2017-10-05 08:31] LABS: TROPONIN I < 0.012 ng/mL
--- NOTE | 2017-10-05 08:31 | RADIOLOGY REPORT (SQ) ---
EXAM DESCRIPTION: CHEST SINGLE VIEW COMPLETED DATE/TIME: 10/05/2017 8:08 am REASON FOR STUDY: chest pain COMPARISON: 08/22/2017. EXAM PARAMETERS: NUMBER OF VIEWS: One view. TECHNIQUE: Single frontal radiographic view of the chest acquired. RADIATION DOSE: NA LIMITATIONS: None. FINDINGS: LUNGS AND PLEURA: No opacities, masses or pneumothorax. No pleural effusion. MEDIASTINUM AND HILAR STRUCTURES: No masses. Contour normal. HEART AND VASCULAR STRUCTURES: Heart upper limits of normal in size. Normal vasculature. BONES: No acute findings. HARDWARE: None in the chest. OTHER: No other significant finding. IMPRESSION: NO ACUTE RADIOGRAPHIC FINDING IN THE CHEST. TECHNICAL DOCUMENTATION: JOB ID: [id number] [employer]- All Rights Reserved
[2017-10-05 08:35] LABS: ALANINE AMINOTRANSFERASE 29 U/L (21-72); ALBUMIN 4.2 g/dL (3.5-5.0); ALKALINE PHOSPHATASE 60 U/L (38-126); ANION GAP 8 (5-19); ASPARTATE AMINO TRANSFERASE 24 U/L (17-59); BILIRUBIN,DIRECT 0.3 mg/dL (0.0-0.4); BILIRUBIN,TOTAL 0.7 mg/dL (0.2-1.3); BLOOD UREA NITROGEN 17 mg/dL (7-20); CALCIUM 9.8 mg/dL (8.4-10.2); CARBON DIOXIDE 28 mmol/L (22-30); CHLORIDE 103 mmol/L (98-107); CREATINE KINASE 87 U/L (55-170); GLUCOSE 92 mg/dL (75-110); POTASSIUM 4.1 mmol/L (3.6-5.0); TOTAL PROTEIN 6.9 g/dL (6.3-8.2)
--- NOTE | 2017-10-05 08:42 | ER Document Report ---
ED General - General Chief Complaint: Chest Pain Stated Complaint: CHEST PAIN Time Seen by Provider: 10/05/17 07:38 Mode of Arrival: Ambulatory Information source: Patient Notes: 72-year-old male history of gastric reflux presents with complaints of burning sensation in the midsternal region every day for the past 4 weeks. Patient states this is similar to his gastric reflux. 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 IN LAST 30 DAYS: No - HPI Onset: Other - Daily constant for 1 month Onset/Duration: Persistent Quality of pain: Burning Severity: Mild Pain Level: 1 Associated symptoms: Chest pain Exacerbated by: Other - Burping Relieved by: Denies Similar symptoms previously: Yes Recently seen / treated by doctor: Yes - Related Data Allergies/Adverse Reactions: No Known Allergies Allergy (Verified 08/22/17 08:22) Past Medical History - Social History Smoking Status: Never Smoker Cigarette use (# per day): No Chew tobacco use (# tins/day): No Smoking Education Provided: No Frequency of alcohol use: Heavy Drug Abuse: None Family History: Reviewed & Not Pertinent Patient has suicidal ideation: No Patient has homicidal ideation: No - Past Medical History Cardiac Medical History: Reports: Hx Hypercholesterolemia, Hx Hypertension Denies: Hx Heart Attack Pulmonary Medical History: Denies: Hx Asthma, Hx Tuberculosis Neurological Medical History: Denies: Hx Cerebrovascular Accident, Hx Seizures Renal/ Medical History: Denies: Hx Peritoneal Dialysis GI Medical History: Reports: Hx Diverticulitis, Hx Gastroesophageal Reflux Disease. Denies: Hx Crohn's Disease, Hx Hepatitis, Hx Hiatal Hernia, Hx Irritable Bowel, Hx Liver Failure, Hx Pancreatitis, Hx Ulcer Musculoskeltal Medical History: Reports Hx Arthritis, Denies Hx Fibromyalgia, Denies Hx Muscular Dystrophy Traumatic Medical History: Denies: Hx Fractures Infectious Medical History: Denies: Hx Hepatitis Past Surgical History: Reports: Hx Appendectomy, Hx Bowel Surgery - r/t diverticulitis. Denies: Hx Cholecystectomy, Hx Colostomy, Hx Coronary Artery Bypass Graft, Hx Gastric Bypass Surgery, Hx Herniorrhaphy, Hx Open Heart Surgery , Hx Pacemaker, Hx Tonsillectomy - Immunizations Hx Diphtheria, Pertussis, Tetanus Vaccination: Yes Hx Pneumococcal Vaccination: 08/09/11 Review of Systems - Review of Systems Notes: REVIEW OF SYSTEMS: CONSTITUTIONAL : Denies fever, chills, or sweats. Denies recent illness. EENT: Denies eye, ear, throat, or mouth pain or symptoms. Denies nasal or sinus congestion or discharge. Denies throat, tongue, or mouth swelling or difficulty swallowing. CARDIOVASCULAR: Denies chest pain. Denies palpitations or racing or irregular heart beat. Denies ankle edema. Admits to esophageal pain RESPIRATORY: Denies cough, cold, or chest congestion. Denies shortness of breath, difficulty breathing, or wheezing. GASTROINTESTINAL: Admits gastric reflux GENITOURINARY: Denies difficulty urinating, painful urination, burning, frequency, blood in urine, or discharge. MUSCULOSKELETAL: Denies back or neck pain or stiffness. Denies joint pain or swelling. SKIN: Denies rash, lesions or sores. HEMATOLOGIC : Denies easy bruising or bleeding. LYMPHATIC: Denies swollen, enlarged glands. NEUROLOGICAL: Denies confusion or altered mental status. Denies passing out or loss of consciousness. Denies dizziness or lightheadedness. Denies headache. Denies weakness or paralysis or loss of use of either side. Denies problems with gait or speech. Denies sensory loss, numbness, or tingling. Denies seizures. PSYCHIATRIC: Denies anxiety or stress. Denies depression, suicidal ideation, or homicidal ideation. ALL OTHER SYSTEMS REVIEWED AND NEGATIVE. Dictation was performed using [employer] voice recognition software PHYSICAL EXAMINATION: GENERAL: Well-appearing, well-nourished and in no acute distress. HEAD: Atraumatic, normocephalic. EYES: Pupils equal round and reactive to light, extraocular movements intact, sclera anicteric, conjunctiva are normal. ENT: Nares patent, oropharynx clear without exudates. Moist mucous membranes. NECK: Normal range of motion, supple without lymphadenopathy LUNGS: Breath sounds clear to auscultation bilaterally and equal. No wheezes rales or rhonchi. HEART: Regular rate and rhythm without murmurs ABDOMEN: Soft, nontender, nondistended abdomen. No guarding, no rebound. No masses appreciated. Musculoskeletal: Normal range of motion, no pitting or edema. No cyanosis. NEUROLOGICAL: Cranial nerves grossly intact. Normal speech, normal gait. Normal sensory, motor exams PSYCH: Normal mood, normal affect. SKIN: Warm, Dry, normal turgor, no rashes or lesions noted. Physical Exam - Vital signs Vitals: Temp Pulse Resp BP Pulse Ox 98.0 F 66 16 129/84 H 97 10/05/17 07:33 10/05/17 07:33 10/05/17 07:33 10/05/17 07:33 10/05/17 07:33 Course - Re-evaluation Re-evalutation: 10/05/17 09:10 Patient's presentation is extremely benign, he points from his proximal to distal esophagus as the area of burning sensation. Given that this pain is constant for 1 month has not changed at all I do not believe there is any cardiac involvement. Nonetheless given his age and risk factors I did do set of cardiac enzymes and EKG. No acute abnormality was noted. I will give the patient follow-up with both gastroenterology and cardiology for further evaluation care. GI cocktail was given symptoms resolved. After performing a Medical Screening Examination, I estimate there is LOW risk for RUPTURED ESOPHAGUS, PNEUMOTHORAX, PULMONARY EMBOLISM, ACUTE CORONARY SYNDROME, OR THORACIC AORTIC DISSECTION, thus I consider the discharge disposition reasonable. I have reevaluated this patient multiple times and no significant life threatening changes are noted. The patient and I have discussed the diagnosis and risks, and we agree with discharging home with close follow-up. We also discussed returning to the Emergency Department immediately if new or worsening symptoms occur. We have discussed the symptoms which are most concerning (e.g., bloody sputum, worsening pain or shortness of breath) that necessitate immediate return. - Vital Signs Vital signs: Temp Pulse Resp BP Pulse Ox 98.0 F 66 18 138/93 H 94 10/05/17 07:33 10/05/17 07:33 10/05/17 08:01 10/05/17 08:01 10/05/17 08:01 - Laboratory Result Diagrams: 10/05/17 07:45 10/05/17 07:45 Laboratory results interpreted by me: 10/05/17 07:45 Hgb 13.4 L - Diagnostic Test Radiology reviewed: Image reviewed, Reports reviewed - EKG Interpretation by Me EKG shows normal: Sinus rhythm, [place], Intervals, QRS Complexes Discharge - Discharge Clinical Impression: Chest pain of uncertain etiology Condition: Stable Disposition: HOME, SELF-CARE Instructions: Reflux Disease (GERD) ([facility]), Chest Pain of Unclear Cause ([facility]) Prescriptions: Famotidine [Pepcid 40 mg Tablet] 40 mg PO DAILY #30 tablet Referrals: ALBERT RODGERS MD [Primary Care Provider] - Follow up tomorrow HEATH ZHENG MD [ACTIVE STAFF] - Follow up tomorrow KARINE OTTO MD [ACTIVE STAFF] - Follow up tomorrow
[2017-10-05 09:12] VITALS: BP 135/95
--- NOTE | 2017-10-08 12:38 | EKG REPORT ---
SEVERITY:- NORMAL ECG - SINUS RHYTHM : Confirmed by: Anel Wadsworth MD 08-Oct-2017 12:37:58
== END 2017-10-05 09:15 | disposition home or self-care (01) ==
LOC: ER 07:24
DX: R07.9 Chest pain, unspecified (principal); Z79.899 Other long term (current) drug therapy
CPT/HCPCS: 93005; 99285; 36415; 82553; 82550; 85025; 80053; 84484; 71010; 93010; A9270 ×2; J3490

== ENCOUNTER 2018-03-13 06:58 | Emergency (ER) | payer MEDICARE, OTHER ==
[2018-03-13] MEDS ORDERED: ASPIRIN 81 MG TABLET, CHEWABLE PO ONE (07:32)
--- NOTE | 2018-03-13 07:50 | RADIOLOGY REPORT (SQ) ---
EXAM DESCRIPTION: XR CHEST 1 VIEW CLINICAL HISTORY: 72 years Male, cp COMPARISON: ..17 NUMBER OF VIEWS/TECHNIQUE: 1/AP FINDINGS: Adequate lung volume, clear parenchyma, normal cardiac silhouette, and intact bony thorax. IMPRESSION: No acute cardiopulmonary findings.
[2018-03-13 08:13] LABS: ABSOLUTE EOSINOPHILS # (AUTO) 0.2 10^3/uL (0.0-0.6); ABSOLUTE LYMPHOCYTES (AUTO) 1.5 10^3/uL (0.5-4.7); ABSOLUTE MONOCYTES (AUTO) 0.5 10^3/uL (0.1-1.4); ABSOLUTE NEUT (AUTO) 2.9 10^3/uL (1.7-8.2); BASOPHILS % (AUTO) 0.5 % (0-2); EOSINOPHILS % (AUTO) 3.6 % (0-6); HEMATOCRIT 38.7 % (37.9-51.0); HEMOGLOBIN 13.2 g/dL (13.5-17.0); LYMPHOCYTES % (AUTO) 28.2 % (13-45); MEAN CORPUSCULAR HEMOGLOBIN 28.4 pg (27.0-33.4); MEAN CORPUSCULAR VOLUME 84 fl (80-97); MONOCYTES % (AUTO) 10.5 % (3-13); PLATELET COUNT 192 10^3/uL (150-450); RED BLOOD COUNT 4.63 10^6/uL (4.35-5.55); RED CELL DISTRIBUTION WIDTH 13.6 % (11.5-14.0); SEGMENTED NEUTROPHILS % (AUTO) 57.2 % (42-78); TOTAL CELLS COUNTED % (AUTO) 100 %; WHITE BLOOD COUNT 5.2 10^3/uL (4.0-10.5)
[2018-03-13] MEDS ORDERED: MAG HYDROX/AL HYDROX/SIMETH SUSP 30 ML UDCUP PO ONE (08:20)
[2018-03-13] MEDS ORDERED: LIDOCAINE 2% VISCOUS SOLN 20 ML UDCUP PO ONE (08:20)
[2018-03-13] MEDS ORDERED: METOCLOPRAMIDE HCL ORAL SOLN 10 MG/10 ML UDCUP PO ONE (08:20)
[2018-03-13 08:22] LABS: INTERNATIONAL RATION (INR) 0.99; PROTHROMBIN TIME 13.6 SEC (11.4-15.4)
[2018-03-13 08:29] LABS: ALANINE AMINOTRANSFERASE 28 U/L (21-72); ALBUMIN 3.9 g/dL (3.5-5.0); ALKALINE PHOSPHATASE 59 U/L (38-126); ANION GAP 10 (5-19); ASPARTATE AMINO TRANSFERASE 25 U/L (17-59); BILIRUBIN,DIRECT 0.1 mg/dL (0.0-0.4); BILIRUBIN,TOTAL 0.6 mg/dL (0.2-1.3); BLOOD UREA NITROGEN 18 mg/dL (7-20); CALCIUM 9.5 mg/dL (8.4-10.2); CARBON DIOXIDE 27 mmol/L (22-30); CHLORIDE 105 mmol/L (98-107); CREATINE KINASE 136 U/L (55-170); GLUCOSE 99 mg/dL (75-110); POTASSIUM 4.1 mmol/L (3.6-5.0); SODIUM 142.1 mmol/L (137-145); TOTAL PROTEIN 6.4 g/dL (6.3-8.2)
[2018-03-13 08:44] LABS: TROPONIN I < 0.012 ng/mL
--- NOTE | 2018-03-13 09:55 | EKG REPORT ---
SEVERITY:- OTHERWISE NORMAL ECG - SINUS RHYTHM ATRIAL PREMATURE COMPLEX : Confirmed by: Anel Wadsworth MD 13-Mar-2018 09:54:58
[2018-03-13] MEDS ORDERED: LIDOCAINE 5% (700 MG) TRANSDERMAL ADH..PATCH TP ONE (10:08)
--- NOTE | 2018-03-13 10:11 | ER Document Report ---
ED General - General Chief Complaint: Chest Pain Stated Complaint: CHEST PAIN Time Seen by Provider: 03/13/18 07:09 TRAVEL OUTSIDE OF THE [place] IN LAST 30 DAYS: No - HPI Patient complains to provider of: Chest pain Notes: Patient coming in for evaluation left-sided chest pain sharp shooting ongoing for the past 24 hours. Patient states no history of trauma patient states that he is not had any nausea vomiting diarrhea states pain is in the. Patient states that he has a history of GERD and has taken his GERD medication with no relief of his pain. Patient denies any physical activity however states that the pain does increase with movement and taking deep breaths. Denies any recent travel. Otherwise patient is resting comfortably upon my evaluation currently stating he is pain-free. - Related Data Allergies/Adverse Reactions: No Known Allergies Allergy (Verified 03/13/18 07:00) Past Medical History - Social History Smoking Status: Never Smoker Chew tobacco use (# tins/day): No Frequency of alcohol use: None Drug Abuse: None Family History: Reviewed & Not Pertinent Patient has suicidal ideation: No Patient has homicidal ideation: No - Past Medical History Cardiac Medical History: Reports: Hx Hypercholesterolemia, Hx Hypertension Denies: Hx Heart Attack Pulmonary Medical History: Denies: Hx Asthma, Hx Tuberculosis Neurological Medical History: Denies: Hx Cerebrovascular Accident, Hx Seizures Renal/ Medical History: Denies: Hx Peritoneal Dialysis GI Medical History: Reports: Hx Diverticulitis, Hx Gastroesophageal Reflux Disease. Denies: Hx Crohn's Disease, Hx Hepatitis, Hx Hiatal Hernia, Hx Irritable Bowel, Hx Liver Failure, Hx Pancreatitis, Hx Ulcer Musculoskeltal Medical History: Reports Hx Arthritis, Denies Hx Fibromyalgia, Denies Hx Muscular Dystrophy Traumatic Medical History: Denies: Hx Fractures Infectious Medical History: Denies: Hx Hepatitis Past Surgical History: Reports: Hx Appendectomy, Hx Bowel Surgery - r/t diverticulitis. Denies: Hx Cholecystectomy, Hx Colostomy, Hx Coronary Artery Bypass Graft, Hx Gastric Bypass Surgery, Hx Herniorrhaphy, Hx Open Heart Surgery , Hx Pacemaker, Hx Tonsillectomy - Immunizations Hx Diphtheria, Pertussis, Tetanus Vaccination: Yes Hx Pneumococcal Vaccination: 08/09/11 Review of Systems - Review of Systems Constitutional: No symptoms reported EENT: No symptoms reported Cardiovascular: Chest pain Respiratory: No symptoms reported Gastrointestinal: No symptoms reported Genitourinary: No symptoms reported Male Genitourinary: No symptoms reported Musculoskeletal: No symptoms reported Skin: No symptoms reported Hematologic/Lymphatic: No symptoms reported Neurological/Psychological: No symptoms reported -: Yes All other systems reviewed and negative Physical Exam - Vital signs Vitals: Temp Pulse Resp BP Pulse Ox 98.3 F 63 18 138/85 H 92 03/13/18 07:21 03/13/18 07:21 03/13/18 07:21 03/13/18 07:21 03/13/18 07:21 Interpretation: Normal - General General appearance: Appears well, Alert - HEENT Head: Normocephalic, Atraumatic Eyes: Normal Pupils: PERRL - Respiratory Respiratory status: No respiratory distress Chest status: Tender - Tenderness to palpation left lateral chest wall reproduces the patient's pain upon evaluation no signs or rashes no signs of trauma Breath sounds: Normal Chest palpation: Normal - Cardiovascular Rhythm: Regular Heart sounds: Normal auscultation Murmur: No - Abdominal Inspection: Normal Distension: No distension Bowel sounds: Normal Tenderness: Nontender Organomegaly: No organomegaly - Back Back: Normal, Nontender - Extremities General upper extremity: Normal inspection, Nontender, Normal color, Normal ROM , Normal temperature General lower extremity: Normal inspection, Nontender, Normal color, Normal ROM , Normal temperature, Normal weight bearing. No: Garrett's sign - Neurological Neuro grossly intact: Yes Cognition: Normal Orientation: AAOx4 Fromberg Coma Scale Eye Opening: Spontaneous Fabián Coma Scale Verbal: Oriented Fromberg Coma Scale Motor: Obeys Commands Fabián Coma Scale Total: 15 Speech: Normal Motor strength normal: LUE, RUE, LLE, RLE Sensory: Normal - Psychological Associated symptoms: Normal affect, Normal mood - Skin Skin Temperature: Warm Skin Moisture: Dry Skin Color: Normal Course - Re-evaluation Re-evalutation: 03/13/18 15:47 The patient has atypical chest pain as the patient's chest pain is not suggestive of pulmonary embolus, cardiac ischemia, aortic dissection, or other serious etiology. Given the extremely low risk of these diagnoses further testing and evaluation for these possibilities does not appear to be indicated at this time. The patient has been instructed to return if the symptoms worsen or change in any way. Laboratory studies negative patient will be discharged home follow-up primary care physician patient requesting more medications for his GERD will give the patient Carafate - Vital Signs Vital signs: Temp Pulse Resp BP Pulse Ox 98.3 F 63 21 H 136/79 H 96 03/13/18 07:21 03/13/18 07:21 03/13/18 11:32 03/13/18 11:32 03/13/18 11:32 - Laboratory Result Diagrams: 03/13/18 08:00 03/13/18 08:00 Laboratory results interpreted by me: 03/13/18 08:00 Hgb 13.2 L Discharge - Discharge Clinical Impression: Chest wall pain, History of gastroesophageal reflux (GERD) Condition: Good Disposition: HOME, SELF-CARE Instructions: Chest Wall Pain ([facility]), Reflux Disease (GERD) ([facility]) Additional Instructions: Your EKG laboratory studies did not show any signs of heart attack no signs of heart damage no signs of heart ischemia. I would highly recommend she follow- up with your primary care provider. Return to ER symptoms worsen Continue your home medications. I recommend also that we start you on a medication called Carafate to help coat her stomach prior to eating. Please take as directed. Prescriptions: Sucralfate [Carafate 1 gm Tablet] 1 gm PO ACHS #120 tablet Forms: Return to Work Referrals: ALBERT RODGERS MD [Primary Care Provider] - Follow up in 3-5 days
[2018-03-13 11:45] VITALS: BP 136/79
== END 2018-03-13 11:44 | disposition home or self-care (01) ==
LOC: ER 06:58
DX: K21.9 Gastro-esophageal reflux disease without esophagitis (principal); Z79.899 Other long term (current) drug therapy; R07.89 Other chest pain; I10 Essential (primary) hypertension
CPT/HCPCS: 93005; 99285; 36415; 82553; 82550; 85025; 85610; 80053; 84484; 71045; 93010; A9270 ×2; J3490

== ENCOUNTER 2018-05-05 10:28 | Emergency (ER) | payer MEDICARE, OTHER ==
--- NOTE | 2018-05-05 11:23 | ER Document Report ---
ED Medical Screen (RME) - General Chief Complaint: Abdominal Pain Stated Complaint: ABDOMINAL PAIN Time Seen by Provider: 05/05/18 11:21 Mode of Arrival: Ambulatory Information source: Patient Notes: This is a 73-year-old man with a history of diverticulitis (partial colectomy in the past), GERD, dyslipidemia who presents to the emergency room with left lower quadrant pain. Patient saw his primary care doctor 4 days ago was placed on Cipro and Flagyl and states he still had discomfort. Patient does report constipation. Denies fever. No history of kidney stones. TRAVEL OUTSIDE OF THE [place] IN LAST 30 DAYS: No - Related Data Allergies/Adverse Reactions: No Known Allergies Allergy (Verified 05/05/18 10:29) Past Medical History - Social History Chew tobacco use (# tins/day): No Frequency of alcohol use: None Drug Abuse: None - Past Medical History Cardiac Medical History: Reports: Hx Hypercholesterolemia, Hx Hypertension Denies: Hx Heart Attack Pulmonary Medical History: Denies: Hx Asthma, Hx Tuberculosis Neurological Medical History: Denies: Hx Cerebrovascular Accident, Hx Seizures Renal/ Medical History: Denies: Hx Peritoneal Dialysis GI Medical History: Reports: Hx Diverticulitis, Hx Gastroesophageal Reflux Disease. Denies: Hx Crohn's Disease, Hx Hepatitis, Hx Hiatal Hernia, Hx Irritable Bowel, Hx Liver Failure, Hx Pancreatitis, Hx Ulcer Musculoskeltal Medical History: Reports Hx Arthritis, Denies Hx Fibromyalgia, Denies Hx Muscular Dystrophy Traumatic Medical History: Denies: Hx Fractures Infectious Medical History: Denies: Hx Hepatitis Past Surgical History: Reports: Hx Appendectomy, Hx Bowel Surgery - r/t diverticulitis. Denies: Hx Cholecystectomy, Hx Colostomy, Hx Coronary Artery Bypass Graft, Hx Gastric Bypass Surgery, Hx Herniorrhaphy, Hx Open Heart Surgery , Hx Pacemaker, Hx Tonsillectomy - Immunizations Hx Diphtheria, Pertussis, Tetanus Vaccination: Yes Physical Exam - Vital signs Vitals: Temp Pulse Resp BP Pulse Ox 97.5 F 55 L 16 118/72 95 05/05/18 10:35 05/05/18 10:35 05/05/18 10:35 05/05/18 10:35 05/05/18 10:35 Course - Vital Signs Vital signs: Temp Pulse Resp BP Pulse Ox 97.5 F 55 L 16 118/72 95 05/05/18 10:35 05/05/18 10:35 05/05/18 10:35 05/05/18 10:35 05/05/18 10:35
--- NOTE | 2018-05-05 11:52 | ER Document Report ---
ED General - General Chief Complaint: Abdominal Pain Stated Complaint: ABDOMINAL PAIN Time Seen by Provider: 05/05/18 11:21 Mode of Arrival: Ambulatory TRAVEL OUTSIDE OF THE [place] IN LAST 30 DAYS: No - HPI Notes: Patient is a 73-year-old male with history of GERD, diverticulosis, and partial colectomy with a previous flareup of diverticulitis who presents to the ED complaining of left lower quadrant pain 5 days. Patient states that he was seen by his family doctor on Monday (3d ago) and was placed on Cipro and Flagyl. Patient states that overall he is feeling better than he was on Monday , but still has pain in his left lower quadrant that does not radiate. Patient states that he has been constipated lately and did try to take a laxative last evening. Patient states that he had a mediocre bowel movement this morning. He is still urinating normally. Denies any drug allergies. No other concerns or complaints. Patient has no other significant past medical history and does not take any other medicines daily aside from a PPI. Denies any headache, fever , URI, sore throat, chest pain, palpitations, syncope, cough, shortness of breath, wheeze, dyspnea, nausea/vomiting/diarrhea, urinary retention, dysuria, hematuria, back pain, loss of control of bowel or bladder, numbness/tingling, muscle paralysis/weakness, or rash. - Related Data Allergies/Adverse Reactions: No Known Allergies Allergy (Verified 05/05/18 10:29) Past Medical History - General Information source: Patient - Social History Smoking Status: Former Smoker Chew tobacco use (# tins/day): No Frequency of alcohol use: None Drug Abuse: None Family History: Reviewed & Not Pertinent Patient has suicidal ideation: No Patient has homicidal ideation: No - Past Medical History Cardiac Medical History: Reports: Hx Hypercholesterolemia, Hx Hypertension Denies: Hx Heart Attack Pulmonary Medical History: Denies: Hx Asthma, Hx Tuberculosis Neurological Medical History: Denies: Hx Cerebrovascular Accident, Hx Seizures Renal/ Medical History: Denies: Hx Peritoneal Dialysis GI Medical History: Reports: Hx Diverticulitis, Hx Gastroesophageal Reflux Disease. Denies: Hx Crohn's Disease, Hx Hepatitis, Hx Hiatal Hernia, Hx Irritable Bowel, Hx Liver Failure, Hx Pancreatitis, Hx Ulcer Musculoskeletal Medical History: Reports Hx Arthritis, Denies Hx Fibromyalgia, Denies Hx Muscular Dystrophy Traumatic Medical History: Denies: Hx Fractures Infectious Medical History: Denies: Hx Hepatitis Past Surgical History: Reports: Hx Appendectomy, Hx Bowel Surgery - r/t diverticulitis. Denies: Hx Cholecystectomy, Hx Colostomy, Hx Coronary Artery Bypass Graft, Hx Gastric Bypass Surgery, Hx Herniorrhaphy, Hx Open Heart Surgery , Hx Pacemaker, Hx Tonsillectomy - Immunizations Hx Diphtheria, Pertussis, Tetanus Vaccination: Yes Hx Pneumococcal Vaccination: 08/09/11 Review of Systems - Review of Systems -: Yes All other systems reviewed and negative Physical Exam - Vital signs Vitals: Temp Pulse Resp BP Pulse Ox 97.5 F 55 L 16 118/72 95 05/05/18 10:35 05/05/18 10:35 05/05/18 10:35 05/05/18 10:35 05/05/18 10:35 - Notes Notes: PHYSICAL EXAMINATION: GENERAL: Well-appearing, well-nourished and in no acute distress. HEAD: Atraumatic, normocephalic. EYES: Pupils equal round and reactive to light, extraocular movements intact, sclera anicteric, conjunctiva are normal. ENT: Nares patent and without discharge. oropharynx clear without exudates. No tonsilar hypertrophy or erythema. Moist mucous membranes. NECK: Normal range of motion, supple without lymphadenopathy LUNGS: Breath sounds clear to auscultation bilaterally and equal. No wheezes rales or rhonchi. HEART: Regular rate and rhythm without murmurs, rubs, gallops. ABDOMEN: Soft, nondistended abdomen. No guarding, no rebound. Normal bowel sounds present. No CVA tenderness bilaterally. + mild tenderness to the LLQ. Musculoskeletal: FROM to passive/active. Strength 5+/5. Extremities: No cyanosis, clubbing, or edema b/l. Peripheral pulses 2+. Capillary refill less than 3 seconds. NEUROLOGICAL: Normal speech, normal gait. PSYCH: Normal mood, normal affect. SKIN: Warm, Dry, normal turgor, no rashes or lesions noted. Course - Re-evaluation Re-evalutation: 05/05/18 15:30 Patient is an afebrile, well-hydrated, 73-year-old male who presents to the ED with left lower abdominal pain, unspecified. Vitals are acceptable without any significant tachycardia, tachypnea, or hypoxia. PE is otherwise unremarkable. Patient is nontoxic-appearing and is tolerating p.o. without difficulties. CBC , CMP, lipase, urinalysis, CT of the abdomen with IV and oral contrast was unremarkable for any acute pathology. Patient has been on antibiotics by his primary care doctor for the last several days for suspected diverticulitis. Overall patient states that he is feeling much better than he was on Monday. No other labs or imaging warranted at this time based on H&P. Low suspicion/ risk for acute appendicitis, bowel obstruction, acute cholecystitis, perforated diverticulitis, incarcerated hernia, pancreatitis, perforated ulcer, peritonitis , sepsis, testicular torsion, or other systemic emergent condition at this time. Patient is aware that his condition can change from initial presentation and he needs to monitor symptoms closely and seek medical attention if any acute changes. Conservative measures otherwise for symptoms. Recheck with PCM in 2-3 days. Consider consult with a molder offbearer. Return to the ED with any worsening/concerning symptoms otherwise as reviewed in discharge. Patient is in agreement. - Vital Signs Vital signs: Temp Pulse Resp BP Pulse Ox 97.5 F 55 L 16 118/72 95 05/05/18 10:35 05/05/18 10:35 05/05/18 10:35 05/05/18 10:35 05/05/18 10:35 - Laboratory Result Diagrams: 05/05/18 11:30 05/05/18 11:30 Laboratory results interpreted by me: 05/05/18 12:00 Ur Leukocyte Esterase TRACE H Discharge - Discharge Clinical Impression: Abdominal pain, left lower quadrant Condition: Stable Disposition: HOME, SELF-CARE Instructions: Abdominal Pain ([facility]) Additional Instructions: Maintain adequate fluid and food intake [place] diet ([employer] Bananas, rice, apples, toast, etc tylenol if needed Monitor for any worsening symptoms Make sure you are staying hydrated enough to urinate and have normal BM's Recheck with your PCM in 2-3 days Consider consult with Gastroenterology for ongoing/worsening symptoms Return to the ED with any worsening symptoms and/or development of fever, headache, chest pain, palpitations, syncope, shortness of breath, trouble breathing, abdominal pain, n/v/d, blood in stool/urine, weakness, or other worsening symptoms that are concerning to you. Referrals: ALBERT RODGERS MD [Primary Care Provider] - 05/07/18
[2018-05-05 11:54] LABS: ABSOLUTE EOSINOPHILS # (AUTO) 0.1 10^3/uL (0.0-0.6); ABSOLUTE LYMPHOCYTES (AUTO) 1.5 10^3/uL (0.5-4.7); ABSOLUTE MONOCYTES (AUTO) 0.5 10^3/uL (0.1-1.4); ABSOLUTE NEUT (AUTO) 2.6 10^3/uL (1.7-8.2); BASOPHILS % (AUTO) 0.5 % (0-2); HEMATOCRIT 40.1 % (37.9-51.0); HEMOGLOBIN 13.6 g/dL (13.5-17.0); LYMPHOCYTES % (AUTO) 31.2 % (13-45); MEAN CORPUSCULAR HEMOGLOBIN 28.3 pg (27.0-33.4); MEAN CORPUSCULAR VOLUME 83 fl (80-97); MONOCYTES % (AUTO) 11.1 % (3-13); PLATELET COUNT 211 10^3/uL (150-450); RED BLOOD COUNT 4.82 10^6/uL (4.35-5.55); RED CELL DISTRIBUTION WIDTH 13.2 % (11.5-14.0); SEGMENTED NEUTROPHILS % (AUTO) 54.2 % (42-78); TOTAL CELLS COUNTED % (AUTO) 100 %; WHITE BLOOD COUNT 4.9 10^3/uL (4.0-10.5)
[2018-05-05 12:11] LABS: ALANINE AMINOTRANSFERASE 31 U/L (21-72); ALKALINE PHOSPHATASE 52 U/L (38-126); ANION GAP 12 (5-19); ASPARTATE AMINO TRANSFERASE 28 U/L (17-59); BILIRUBIN,DIRECT 0.2 mg/dL (0.0-0.4); BILIRUBIN,TOTAL 0.4 mg/dL (0.2-1.3); BLOOD UREA NITROGEN 10 mg/dL (7-20); CALCIUM 9.3 mg/dL (8.4-10.2); CARBON DIOXIDE 27 mmol/L (22-30); CHLORIDE 102 mmol/L (98-107); GLUCOSE 87 mg/dL (75-110); LIPASE 49.4 U/L (23-300); POTASSIUM 4.5 mmol/L (3.6-5.0); SODIUM 140.7 mmol/L (137-145); TOTAL PROTEIN 6.4 g/dL (6.3-8.2)
[2018-05-05 12:37] LABS: APPEARANCE,URINE CLEAR; BILIRUBIN,URINE NEGATIVE (NEGATIVE); COLOR,URINE YELLOW; GLUCOSE, URINE NEGATIVE (NEGATIVE); KETONES,URINE NEGATIVE (NEGATIVE); LEUKOCYTE ESTERASE,URINE TRACE (NEGATIVE); NITRITE,URINE NEGATIVE (NEGATIVE); PROTEIN,URINE NEGATIVE (NEGATIVE); URINE SPECIFIC GRAVITY 1.013; UROBILINOGEN,URINE NEGATIVE mg/dL (<2.0)
--- NOTE | 2018-05-05 15:07 | RADIOLOGY REPORT (SQ) ---
EXAM DESCRIPTION: CT ABD/PELVIS WITH IV ORAL COMPLETED DATE/TIME: 05/05/2018 2:47 pm REASON FOR STUDY: llq pain COMPARISON: 03/10/2017 and 5 additional prior TECHNIQUE: CT scan of the abdomen and pelvis performed using helical scanning technique with dynamic intravenous contrast injection. No oral contrast. Images reviewed with lung, soft tissue, and bone windows. Reconstructed coronal and sagittal MPR images reviewed. Delayed images for evaluation of the urinary system also acquired. All images stored on PACS. All CT scanners at this facility use dose modulation, iterative reconstruction, and/or weight based d osing when appropriate to reduce radiation dose to as low as reasonably achievable (ALARA). [facility]: Dose Right [facility]: CareDose [facility]: Dose Right [facility]: Teradose 4D [facility]: MD On-Line CONTRAST TYPE AND DOSE: contrast/concentration: Isovue 370.00 mg/ml; Total Contrast Delivered: 100.0 ml; Total Saline Delivered: 72.0 ml RENAL FUNCTION: GFR > 60. RADIATION DOSE: CT Rad equipment meets quality standard of care and radiation dose reduction techniq ues were employed. CTDIvol: 12.4 - 17.8 mGy. DLP: 1548 mGy-cm.. LIMITATIONS: None. FINDINGS: LOWER CHEST: No significant findings. No nodules or infiltrates. LIVER: Normal size. No masses. No dilated ducts. SPLEEN: Normal size. No focal lesions. PANCREAS: No masses. No significant calcifications. No adjacent inflammation or peripancreatic fluid collections. Pancreatic duct not dilated. GALLBLADDER: No identified stones by CT criteria. No inflammatory changes to suggest cholecystitis. ADRENAL GLANDS: No significant masses or asymmetry. RIGHT KIDNEY AND URETER: No solid masses. No significant calcifications. No hydronephrosis or hyd roureter. LEFT KIDNEY AND URETER: No solid masses. No significant calcifications. No hydronephrosis or hydr oureter. AORTA AND VESSELS: No aneurysm. No dissection. Renal arteries, SMA, celiac without stenosis. RETROPERITONEUM: No retroperitoneal adenopathy, hemorrhage or masses. BOWEL AND PERITONEAL CAVITY: No masses or inflammatory changes. No free fluid or peritoneal masses. Partial resection of the right colon. APPENDIX: Surgically absent. PELVIS: No mass. No free fluid. Normal bladder. ABDOMINAL WALL: No masses. No hernias. BONES: No significant or acute findings. OTHER: No other significant finding. IMPRESSION: NO SIGNIFICANT OR ACUTE FINDING IN THE ABDOMEN OR PELVIS ON CT SCAN WITH IV CONTRAST. TECHNICAL DOCUMENTATION: JOB ID: [id number] Quality ID # [id number]: Final reports with documentation of one or more dose reduction techniques (e.g., Au tomated exposure control, adjustment of the mA and/or kV according to patient size, use of iterative reconstruction technique) 2010 [employer]- All Rights Reserved Reading location - IP/workstation name: [email or web address]
[2018-05-05 16:03] VITALS: BP 139/86
== END 2018-05-05 16:03 | disposition home or self-care (01) ==
LOC: ER 10:28
DX: K59.00 Constipation, unspecified (principal); R10.32 Left lower quadrant pain; I10 Essential (primary) hypertension; Z87.19 Personal history of other diseases of the digestive system; Z90.49 Acquired absence of other specified parts of digestive tract; Z87.891 Personal history of nicotine dependence
CPT/HCPCS: 36415; 74177; 80053; 81001; 83690; 85025; 99284

== ENCOUNTER → 2018-05-28 | Outpatient (CLI) | payer MEDICARE, OTHER ==
[2018-05-28 12:29] LABS: HEMATOCRIT 38.9 % (37.9-51.0); HEMOGLOBIN 12.9 g/dL (13.5-17.0); MEAN CORPUSCULAR HEMOGLOBIN 28.1 pg (27.0-33.4); MEAN CORPUSCULAR HGB CONC 33.2 g/dL (32.0-36.0); MEAN CORPUSCULAR VOLUME 85 fl (80-97); PLATELET COUNT 202 10^3/uL (150-450); RED BLOOD COUNT 4.59 10^6/uL (4.35-5.55); RED CELL DISTRIBUTION WIDTH 13.4 % (11.5-14.0); WHITE BLOOD COUNT 7.3 10^3/uL (4.0-10.5)
[2018-05-28 12:33] LABS: APPEARANCE,URINE CLEAR; BILIRUBIN,URINE NEGATIVE (NEGATIVE); COLOR,URINE YELLOW; GLUCOSE, URINE NEGATIVE (NEGATIVE); KETONES,URINE NEGATIVE (NEGATIVE); LEUKOCYTE ESTERASE,URINE NEGATIVE (NEGATIVE); NITRITE,URINE NEGATIVE (NEGATIVE); PROTEIN,URINE NEGATIVE (NEGATIVE); URINE SPECIFIC GRAVITY 1.026; UROBILINOGEN,URINE NEGATIVE mg/dL (<2.0)
[2018-05-28 13:24] LABS: ALANINE AMINOTRANSFERASE 24 U/L (21-72); ALBUMIN 4.1 g/dL (3.5-5.0); ALKALINE PHOSPHATASE 57 U/L (38-126); ANION GAP 10 (5-19); ASPARTATE AMINO TRANSFERASE 23 U/L (17-59); BILIRUBIN,DIRECT 0.3 mg/dL (0.0-0.4); BILIRUBIN,TOTAL 0.7 mg/dL (0.2-1.3); BLOOD UREA NITROGEN 13 mg/dL (7-20); CALCIUM 9.2 mg/dL (8.4-10.2); CARBON DIOXIDE 28 mmol/L (22-30); CHLORIDE 102 mmol/L (98-107); GLUCOSE 93 mg/dL (75-110); POTASSIUM 4.4 mmol/L (3.6-5.0); SODIUM 139.6 mmol/L (137-145)
== END ==
LOC: LAB 11:53
PROVIDERS: ATTEND Physician Assistant Surgical
DX: K57.30 Diverticulosis of large intestine without perforation or abscess without bleeding (principal); R10.814 Left lower quadrant abdominal tenderness
CPT/HCPCS: 36415; 80053; 81001; 85027

== ENCOUNTER → 2018-05-29 | Outpatient (CLI) | payer MEDICARE, OTHER ==
--- NOTE | 2018-05-29 09:29 | RADIOLOGY REPORT (SQ) ---
EXAM DESCRIPTION: CT ABD/PELVIS WITH IV ORAL COMPLETED DATE/TIME: 05/29/2018 8:11 am REASON FOR STUDY: ABD TENDERNESS LLQ (R10.814), DIVERTICULOSIS OF LARGE INTESTINE (K57.30) R10.814 LEFT LOWER QUADRANT ABDOMINAL TENDERNESS K57.30 DVRTCLOS OF LG INT W/O PERFORATION OR ABSCESS W/O BL E COMPARISON: Upper GI 04/16/2015 CT abdomen pelvis 8 prior exams since 11/15/2011, most recently 05/05/2018 TECHNIQUE: CT scan of the abdomen and pelvis performed using helical scanning technique with dynamic intravenous contrast injection. Patient drank oral contrast. Images reviewed with lung, soft tissue , and bone windows. Reconstructed coronal and sagittal MPR images reviewed. Delayed images for evalua tion of the urinary system also acquired. All images stored on PACS. All CT scanners at this facility use dose modulation, iterative reconstruction, and/or weight based d osing when appropriate to reduce radiation dose to as low as reasonably achievable (ALARA). [facility]: Dose Right [facility]: CareDose [facility]: Dose Right [facility]: Teradose 4D [facility]: Mind Palette CONTRAST TYPE AND DOSE: contrast/concentration: Isovue 350.00 mg/ml; Total Contrast Delivered: 100.0 ml; Total Saline Delivered: 72.0 ml RENAL FUNCTION: Creatinine 0.95 RADIATION DOSE: CT Rad equipment meets quality standard of care and radiation dose reduction techniq ues were employed. CTDIvol: 9.2 - 10.8 mGy. DLP: 1046 mGy-cm.. LIMITATIONS: None. FINDINGS: LOWER CHEST: No significant findings. No nodules or infiltrates. LIVER: Normal size. No masses. No dilated ducts. SPLEEN: Normal size. No focal lesions. PANCREAS: No masses. No significant calcifications. No adjacent inflammation or peripancreatic fluid collections. Pancreatic duct not dilated. GALLBLADDER: No identified stones by CT criteria. No inflammatory changes to suggest cholecystitis. ADRENAL GLANDS: No significant masses or asymmetry. RIGHT KIDNEY AND URETER: No solid masses. No significant calcifications. No hydronephrosis or hyd roureter. LEFT KIDNEY AND URETER: No solid masses. No significant calcifications. No hydronephrosis or hydr oureter. AORTA AND VESSELS: No aneurysm. No dissection. Renal arteries, SMA, celiac without stenosis. RETROPERITONEUM: No retroperitoneal adenopathy, hemorrhage or masses. BOWEL AND PERITONEAL CAVITY: Patient drank oral contrast. No CT evidence of bowel obstruction. No f ree intraperitoneal air or fluid. Old right hemicolectomy. Abnormal eccentric lateral colon wall thickening and luminal narrowing is present along the mid desce nding colon involving and 9 cm long segment. This is more prominent than on previous studies. Altho ugh this could represent chronic inflammation from diverticulitis, a sessile malignant mass could be present. These findings are best shown on coronal images 43-51 and axial images 35-51. There is mod erate luminal narrowing in this area without evidence of obstruction. No adjacent adenopathy. APPENDIX: Surgically absent PELVIS: No mass. No free fluid. Normal bladder. ABDOMINAL WALL: No masses. No hernias. BONES: No significant or acute findings. OTHER: There are dense parenchymal calcifications along an old midline anterior abdominal wall incisi on IMPRESSION: Along the mid descending colon, a 9 cm long segment of abnormal colon wall thickening an d luminal narrowing is present. This finding is more prominent than on previous exams. Although thi s could represent chronic change of diverticulitis, malignancy could not be excluded. No adjacent ad enopathy or abscess. No bowel obstruction TECHNICAL DOCUMENTATION: JOB ID: [id number] Quality ID # [id number]: Final reports with documentation of one or more dose reduction techniques (e.g., Au tomated exposure control, adjustment of the mA and/or kV according to patient size, use of iterative reconstruction technique) 2010 [employer]- All Rights Reserved Reading location - IP/workstation name: [email or web address]
== END ==
LOC: RAD 07:29
PROVIDERS: ATTEND Internal Medicine Gastroenterology
DX: R10.814 Left lower quadrant abdominal tenderness (principal); K57.30 Diverticulosis of large intestine without perforation or abscess without bleeding
CPT/HCPCS: 74177

== ENCOUNTER 2018-07-11 08:10 | Emergency (ER) | payer MEDICARE, OTHER ==
[2018-07-11] MEDS ORDERED: ASPIRIN 81 MG TABLET, CHEWABLE PO ONE (08:33)
[2018-07-11 08:52] LABS: ABSOLUTE EOSINOPHILS # (AUTO) 0.1 10^3/uL (0.0-0.6); ABSOLUTE LYMPHOCYTES (AUTO) 0.9 10^3/uL (0.5-4.7); ABSOLUTE MONOCYTES (AUTO) 0.7 10^3/uL (0.1-1.4); ABSOLUTE NEUT (AUTO) 2.5 10^3/uL (1.7-8.2); BASOPHILS % (AUTO) 0.6 % (0-2); EOSINOPHILS % (AUTO) 3.1 % (0-6); HEMOGLOBIN 13.2 g/dL (13.5-17.0); LYMPHOCYTES % (AUTO) 21.7 % (13-45); MEAN CORPUSCULAR HEMOGLOBIN 28.4 pg (27.0-33.4); MEAN CORPUSCULAR HGB CONC 33.9 g/dL (32.0-36.0); MEAN CORPUSCULAR VOLUME 84 fl (80-97); PLATELET COUNT 190 10^3/uL (150-450); RED BLOOD COUNT 4.66 10^6/uL (4.35-5.55); RED CELL DISTRIBUTION WIDTH 13.5 % (11.5-14.0); SEGMENTED NEUTROPHILS % (AUTO) 58.6 % (42-78); TOTAL CELLS COUNTED % (AUTO) 100 %; WHITE BLOOD COUNT 4.3 10^3/uL (4.0-10.5)
[2018-07-11 09:20] LABS: ALANINE AMINOTRANSFERASE 28 U/L (21-72); ALKALINE PHOSPHATASE 59 U/L (38-126); ANION GAP 8 (5-19); ASPARTATE AMINO TRANSFERASE 22 U/L (17-59); BILIRUBIN,DIRECT 0.4 mg/dL (0.0-0.4); BILIRUBIN,TOTAL 0.8 mg/dL (0.2-1.3); BLOOD UREA NITROGEN 13 mg/dL (7-20); CARBON DIOXIDE 27 mmol/L (22-30); CHLORIDE 105 mmol/L (98-107); CREATINE KINASE 70 U/L (55-170); GLUCOSE 102 mg/dL (75-110); POTASSIUM 4.2 mmol/L (3.6-5.0); SODIUM 140.3 mmol/L (137-145); TOTAL PROTEIN 6.7 g/dL (6.3-8.2)
--- NOTE | 2018-07-11 09:22 | RADIOLOGY REPORT (SQ) ---
EXAM DESCRIPTION: CHEST SINGLE VIEW COMPLETED DATE/TIME: 07/11/2018 8:53 am REASON FOR STUDY: chest pain COMPARISON: AP chest 03/13/2018, 09/27/2017 08/22/2017 EXAM PARAMETERS: NUMBER OF VIEWS: One view. TECHNIQUE: Single frontal radiographic view of the chest acquired. RADIATION DOSE: NA LIMITATIONS: None. FINDINGS: LUNGS AND PLEURA: No opacities, masses or pneumothorax. No pleural effusion. MEDIASTINUM AND HILAR STRUCTURES: No masses. Contour normal. HEART AND VASCULAR STRUCTURES: Heart normal in size. Normal vasculature. BONES: No acute findings. HARDWARE: None in the chest. OTHER: No other significant finding. IMPRESSION: NO ACUTE RADIOGRAPHIC FINDING IN THE CHEST. TECHNICAL DOCUMENTATION: JOB ID: [id number] [employer]- All Rights Reserved Reading location - IP/workstation name: [email or web address]
[2018-07-11 09:34] LABS: CREATINE KINASE MB 0.84 ng/mL (<4.55)
[2018-07-11 09:39] LABS: TROPONIN I < 0.012 ng/mL
[2018-07-11] MEDS ORDERED: ACETAMINOPHEN 325 MG TABLET PO ONE (10:12)
--- NOTE | 2018-07-11 11:12 | EKG REPORT ---
SEVERITY:- NORMAL ECG - SINUS RHYTHM : Confirmed by: Cony Marr 11-Jul-2018 11:11:52
[2018-07-11] MEDS ORDERED: METOCLOPRAMIDE HCL ORAL SOLN 10 MG/10 ML UDCUP PO ONE ×2 (11:15→14:00)
[2018-07-11] MEDS ORDERED: LIDOCAINE 2% VISCOUS SOLN 20 ML UDCUP PO ONE ×2 (11:15→14:00)
[2018-07-11] MEDS ORDERED: MAG HYDROX/AL HYDROX/SIMETH SUSP 30 ML UDCUP PO ONE ×2 (11:15→14:00)
--- NOTE | 2018-07-11 11:17 | ER Document Report ---
ED Cardiac - General Chief Complaint: Chest Pain Stated Complaint: CHEST PAIN Time Seen by Provider: 07/11/18 08:15 Mode of Arrival: Ambulatory Information source: Patient Notes: Patient is a 73-year-old male who presents with chief complaint of chest pain and sore throat. Patient reports he was seen by his primary care provider late last week for sinus pressure and cough and was placed on a Z-Andi. Patient reports he is not getting any better has persistent cough and now has sharp stabbing chest pain to the left side of his chest. Patient reports the pain is intermittent and only occurs when he takes a deep breath. Patient denies any other associated symptoms such as nausea, vomiting, diaphoresis or shortness of breath. Patient reports history of hypertension but states he does not take any medications for this. Patient denies any cardiac history. Patient is a non -smoker. TRAVEL OUTSIDE OF THE [place] IN LAST 30 DAYS: No - Related Data Allergies/Adverse Reactions: No Known Allergies Allergy (Verified 07/11/18 08:11) Past Medical History - General Information source: Patient - Social History Smoking Status: Never Smoker Frequency of alcohol use: None Drug Abuse: None Family History: Reviewed & Not Pertinent Patient has suicidal ideation: No Patient has homicidal ideation: No - Past Medical History Cardiac Medical History: Reports: Hx Hypercholesterolemia, Hx Hypertension Denies: Hx Heart Attack Pulmonary Medical History: Denies: Hx Asthma, Hx Tuberculosis Neurological Medical History: Denies: Hx Cerebrovascular Accident, Hx Seizures Renal/ Medical History: Denies: Hx Peritoneal Dialysis GI Medical History: Reports: Hx Diverticulitis, Hx Gastroesophageal Reflux Disease. Denies: Hx Crohn's Disease, Hx Hepatitis, Hx Hiatal Hernia, Hx Irritable Bowel, Hx Liver Failure, Hx Pancreatitis, Hx Ulcer Musculoskeletal Medical History: Reports Hx Arthritis, Denies Hx Fibromyalgia, Denies Hx Muscular Dystrophy Traumatic Medical History: Denies: Hx Fractures Infectious Medical History: Denies: Hx Hepatitis Past Surgical History: Reports: Hx Appendectomy, Hx Bowel Surgery - r/t diverticulitis. Denies: Hx Cholecystectomy, Hx Colostomy, Hx Coronary Artery Bypass Graft, Hx Gastric Bypass Surgery, Hx Herniorrhaphy, Hx Open Heart Surgery , Hx Pacemaker, Hx Tonsillectomy - Immunizations Hx Diphtheria, Pertussis, Tetanus Vaccination: Yes Hx Pneumococcal Vaccination: 08/09/11 Review of Systems - Review of Systems EENT: Throat pain Cardiovascular: Chest pain -: Yes All other systems reviewed and negative Physical Exam - Vital signs Vitals: Temp Pulse Resp BP Pulse Ox 98.5 F 71 16 127/69 H 98 07/11/18 08:19 07/11/18 08:19 07/11/18 08:19 07/11/18 08:19 07/11/18 08:19 - Notes Notes: PHYSICAL EXAMINATION: GENERAL: Well-appearing, well-nourished and in no acute distress. HEAD: Atraumatic, normocephalic. EYES: Pupils equal round and reactive to light, extraocular movements intact, sclera anicteric, conjunctiva are normal. ENT: Nares patent, oropharynx clear without exudates. Moist mucous membranes. NECK: Normal range of motion, supple without lymphadenopathy LUNGS: Breath sounds clear to auscultation bilaterally and equal. No wheezes rales or rhonchi. HEART: Regular rate and rhythm without murmurs ABDOMEN: Soft, nontender, nondistended abdomen. No guarding, no rebound. No masses appreciated. Musculoskeletal: Normal range of motion, no pitting or edema. No cyanosis. Reproducible chest pain with palpation to the left chest wall anteriorly. NEUROLOGICAL: Cranial nerves grossly intact. Normal speech, normal gait. Normal sensory, motor exams PSYCH: Normal mood, normal affect. SKIN: Warm, Dry, normal turgor, no rashes or lesions noted. Course - Re-evaluation Re-evalutation: 07/11/18 11:16 CBC, CMP and cardiac enzymes are negative. Chest x-ray is unremarkable. EKG sinus rhythm, rate of 67, normal axis, no ST segment elevations or depressions, unchanged from previous EKG done on 03/13/2018. Discussed these findings with patient. Rapid strep was sent down, GI cocktail ordered. Will draw a repeat troponin in 2 hours. Rapid strep is negative, repeat troponin is within normal limits. Patient reports significant reduction in his symptoms after drinking the GI cocktail. Patient will be discharged home at this time with plan to follow-up with his primary care, he Jamie has an appointment scheduled for Monday. Patient given ED return precautions. - Vital Signs Vital signs: Temp Pulse Resp BP Pulse Ox 98.5 F 71 18 135/79 H 97 07/11/18 08:19 07/11/18 08:19 07/11/18 14:01 07/11/18 14:01 07/11/18 14:01 - Laboratory Result Diagrams: 07/11/18 08:40 07/11/18 08:40 Laboratory results interpreted by me: 07/11/18 08:40 Hgb 13.2 L Monocytes % 16.0 H Discharge - Discharge Clinical Impression: Chest pain Qualifiers: Chest pain type: unspecified Qualified Code(s): R07.9 - Chest pain, unspecified Condition: Stable Disposition: HOME, SELF-CARE Additional Instructions: Chest Pain of Unclear Cause The exact cause of your chest pain isn't clear. Fortunately, there is no evidence of a dangerous medical condition. Further testing may be required to find the source of the pain. Most often, we find that this pain is coming from the chest wall -- the muscles or rib joints in the chest. But chest pain can come from the lung and lung lining, the esophagus, the heart valves or heart lining, and even the stomach or gallbladder. Rest. Eat lightly until the pain is gone. We may prescribe medicine for pain and inflammation. You should call the physician immediately if the pain radiates to the shoulder, jaw or arms; if you start to run a fever or develop a cough; or if you develop shortness of breath, or other new or alarming symptoms. SORE THROAT: Sore throats may be caused by viruses, bacteria, or fungi. Most are due to a virus, and must get better on their own. Bacterial sore throats, particularly those due to "strep," need treatment with antibiotics. If an antibiotic is prescribed, be sure to take the medication for a full 10 days. Failure to take the antibiotic can result in complications such as rheumatic fever. Sometimes, an injection of antibiotics is given instead of pills or liquid. This single "shot" is equal in effectiveness to the oral medication. To relieve symptoms, take acetaminophen for pain. Sip clear liquids frequently, or eat popsicles or ice chips. Anesthetic sprays or lozenges may help. Make sure the air in the room is not too dry. Avoid using decongestants or antihistamines. Call the doctor if there is no improvement in two days, or if you have difficulty breathing, increasing throat pain, high fever, rash, or frequent vomiting. FOLLOW-UP CARE: If you have been referred to a physician for follow-up care, call the physician s office for an appointment as you were instructed or within the next two days. If you experience worsening or a significant change in your symptoms, notify the physician immediately or return to the Emergency Department at any time for re-evaluation. Please take medication as prescribed. Your workup today to include both blood work, EKG and chest x-ray were all unremarkable. Your symptoms are likely caused by a viral upper respiratory illness. Prescriptions: Benzonatate [Tessalon Perles 100 mg Capsule] 100 mg PO Q8HP PRN #40 capsule PRN Reason: Lidocaine HCl [Lidocaine HCl Viscous] 10 ml PO Q6H PRN #200 ml PRN Reason: Ondansetron [Zofran Odt 4 mg Tablet] 1 - 2 tab PO Q4H PRN #15 tab.rapdis PRN Reason: For Nausea/Vomiting Referrals: ALBERT RODGERS MD [Primary Care Provider] - Follow up as needed
[2018-07-11 14:08] VITALS: BP 135/79
== END 2018-07-11 14:30 | disposition home or self-care (01) ==
LOC: ER 08:10
DX: R07.1 Chest pain on breathing (principal); J02.9 Acute pharyngitis, unspecified; J34.89 Other specified disorders of nose and nasal sinuses; R05 Cough; I10 Essential (primary) hypertension
CPT/HCPCS: 93005; 99285; 36415; 87070; 82553; 87880; 82550; 85025; 80053; 84484; 71045; 93010; A9270 ×3; J3490

== ENCOUNTER → 2018-08-29 | Outpatient (CLI) | payer MEDICARE, OTHER ==
[2018-08-29 09:03] LABS: ALANINE AMINOTRANSFERASE 25 U/L (21-72); ALBUMIN 4.1 g/dL (3.5-5.0); ALKALINE PHOSPHATASE 64 U/L (38-126); ASPARTATE AMINO TRANSFERASE 27 U/L (17-59); BILIRUBIN,DIRECT 0.1 mg/dL (0.0-0.4); BILIRUBIN,TOTAL 0.5 mg/dL (0.2-1.3); CHOLESTEROL 176.13 mg/dL (0-200); TOTAL PROTEIN 6.7 g/dL (6.3-8.2); TRIGLYCERIDES 197 mg/dL (<150)
[2018-08-29 09:14] LABS: DIRECT LDL 74 mg/dL (<100)
[2018-08-29 09:17] LABS: VLDL CHOLESTEROL 39.4 mg/dL (10-31)
== END ==
LOC: OD 07:59
PROVIDERS: ATTEND Internal Medicine
DX: I10 Essential (primary) hypertension (principal); R07.2 Precordial pain; K21.9 Gastro-esophageal reflux disease without esophagitis; R01.1 Cardiac murmur, unspecified; E78.49 Other hyperlipidemia; Z79.899 Other long term (current) drug therapy
CPT/HCPCS: 36415; 80061; 80076

== ENCOUNTER 2018-10-08 07:51 | Emergency (ER) | payer MEDICARE, OTHER ==
[2018-10-08] MEDS ORDERED: NORMAL SALINE 1000 ML 1,000 ML IV ONE (08:20)
[2018-10-08 08:46] LABS: APPEARANCE,URINE CLEAR; BILIRUBIN,URINE NEGATIVE (NEGATIVE); COLOR,URINE YELLOW; GLUCOSE, URINE NEGATIVE (NEGATIVE); KETONES,URINE NEGATIVE (NEGATIVE); LEUKOCYTE ESTERASE,URINE NEGATIVE (NEGATIVE); NITRITE,URINE NEGATIVE (NEGATIVE); PROTEIN,URINE NEGATIVE (NEGATIVE); URINE SPECIFIC GRAVITY 1.014; UROBILINOGEN,URINE NEGATIVE mg/dL (<2.0)
[2018-10-08 09:13] LABS: HEMATOCRIT 39.5 % (37.9-51.0); HEMOGLOBIN 13.6 g/dL (13.5-17.0); MEAN CORPUSCULAR HEMOGLOBIN 28.5 pg (27.0-33.4); MEAN CORPUSCULAR HGB CONC 34.4 g/dL (32.0-36.0); MEAN CORPUSCULAR VOLUME 83 fl (80-97); PLATELET COUNT 227 10^3/uL (150-450); RED BLOOD COUNT 4.77 10^6/uL (4.35-5.55); RED CELL DISTRIBUTION WIDTH 13.2 % (11.5-14.0)
[2018-10-08 09:26] LABS: ALANINE AMINOTRANSFERASE 33 U/L (21-72); ALBUMIN 3.9 g/dL (3.5-5.0); ALKALINE PHOSPHATASE 66 U/L (38-126); ANION GAP 7 (5-19); ASPARTATE AMINO TRANSFERASE 32 U/L (17-59); BILIRUBIN,DIRECT 0.2 mg/dL (0.0-0.4); BILIRUBIN,TOTAL 0.4 mg/dL (0.2-1.3); BLOOD UREA NITROGEN 13 mg/dL (7-20); CALCIUM 9.2 mg/dL (8.4-10.2); CARBON DIOXIDE 27 mmol/L (22-30); CHLORIDE 104 mmol/L (98-107); GLUCOSE 95 mg/dL (75-110); LIPASE 51.8 U/L (23-300); POTASSIUM 4.3 mmol/L (3.6-5.0); SODIUM 138.2 mmol/L (137-145); TOTAL PROTEIN 6.7 g/dL (6.3-8.2)
[2018-10-08 09:38] LABS: ABSOLUTE LYMPHOCYTES# (MANUAL) 2.2 10^3/uL (0.5-4.7); ABSOLUTE MONOCYTES # (MANUAL) 0.5 10^3/uL (0.1-1.4); ABSOLUTE NEUTROPHILS# (MANUAL) 2.3 10^3/uL (1.7-8.2); BASOPHILS % (MANUAL) 0 % (0-2); EOSINOPHILS % (MANUAL) 3 % (0-6); HYPOCHROMASIA SLIGHT; LYMPHOCYTES % (MANUAL) 42 % (13-45); MONOCYTES % (MANUAL) 9 % (3-13); PLATELET CLUMPS PRESENT; POLYCHROMASIA SLIGHT; SEGMENTED NEUTROPHILS % (MAN) 45 % (42-78); TOTAL CELLS COUNTED 100
--- NOTE | 2018-10-08 10:33 | RADIOLOGY REPORT (SQ) ---
EXAM DESCRIPTION: CT ABD/PELVIS WITH IV ONLY COMPLETED DATE/TIME: 10/08/2018 10:11 am REASON FOR STUDY: llq left flank pain COMPARISON: 07/22/2017 TECHNIQUE: CT scan of the abdomen and pelvis performed using helical scanning technique with dynamic intravenous contrast injection. No oral contrast. Images reviewed with lung, soft tissue, and bone windows. Reconstructed coronal and sagittal MPR images reviewed. Delayed images for evaluation of the urinary system also acquired. All images stored on PACS. All CT scanners at this facility use dose modulation, iterative reconstruction, and/or weight based d osing when appropriate to reduce radiation dose to as low as reasonably achievable (ALARA). [facility]: Dose Right [facility]: CareDose [facility]: Dose Right [facility]: Teradose 4D [facility]: F-Origin CONTRAST TYPE AND DOSE: contrast/concentration: Isovue 350.00 mg/ml; Total Contrast Delivered: 100.0 ml; Total Saline Delivered: 70.0 ml RENAL FUNCTION: GFR > 60. RADIATION DOSE: CT Rad equipment meets quality standard of care and radiation dose reduction techniq ues were employed. CTDIvol: 11.0 - 15.6 mGy. DLP: 1486 mGy-cm.. LIMITATIONS: None. FINDINGS: LOWER CHEST: No significant findings. No nodules or infiltrates. LIVER: Normal size. No masses. No dilated ducts. SPLEEN: Normal size. No focal lesions. PANCREAS: No masses. No significant calcifications. No adjacent inflammation or peripancreatic fluid collections. Pancreatic duct not dilated. GALLBLADDER: No identified stones by CT criteria. No inflammatory changes to suggest cholecystitis. ADRENAL GLANDS: No significant masses or asymmetry. RIGHT KIDNEY AND URETER: No solid masses. No significant calcifications. No hydronephrosis or hyd roureter. LEFT KIDNEY AND URETER: No solid masses. No significant calcifications. No hydronephrosis or hydr oureter. AORTA AND VESSELS: No aneurysm. No dissection. Renal arteries, SMA, celiac without stenosis. Mixed a therosclerosis. RETROPERITONEUM: No retroperitoneal adenopathy, hemorrhage or masses. BOWEL AND PERITONEAL CAVITY: No masses or inflammatory changes. No free fluid or peritoneal masses. Status post right colectomy. There is extensive descending and sigmoid diverticulosis with redemonst rated fat stranding about the distal descending and proximal sigmoid colon (series 3, image 43) not s ignificantly changed from prior. APPENDIX: Surgically absent. PELVIS: No mass. No free fluid. Normal bladder. ABDOMINAL WALL: No masses. No hernias. BONES: No significant or acute findings. OTHER: No other significant finding. IMPRESSION: 1. There is extensive descending and sigmoid diverticulosis with redemonstrated fat stra nding about the distal descending and proximal sigmoid colon not significantly changed from prior. F indings are consistent with chronic sequela of diverticulitis; acutely superimposed recurrent diverti culitis is not excluded given clinical presentation. No evidence of perforation or abscess. 2. Postoperative findings of right colectomy. TECHNICAL DOCUMENTATION: JOB ID: [id number] Quality ID # [id number]: Final reports with documentation of one or more dose reduction techniques (e.g., Au tomated exposure control, adjustment of the mA and/or kV according to patient size, use of iterative reconstruction technique) 2010 [employer]- All Rights Reserved Reading location - IP/workstation name: [email or web address]
[2018-10-08] MEDS ORDERED: METRONIDAZOLE 500 MG TABLET PO ONE (10:50)
[2018-10-08] MEDS ORDERED: CIPROFLOXACIN HCL 500 MG TABLET PO ONE (10:50)
--- NOTE | 2018-10-08 11:46 | ER Document Report ---
ED General - General Chief Complaint: Flank Pain Stated Complaint: LEFT SIDE PAIN Time Seen by Provider: 10/08/18 08:10 TRAVEL OUTSIDE OF THE [place] IN LAST 30 DAYS: No - HPI Patient complains to provider of: Left flank pain Notes: Patient coming in for evaluation of left flank pain. Patient states ongoing for 24 hours. Denies any fever chills nausea vomiting diarrhea denies any change in stool habits. Patient does state history significant for diverticulitis which is required a hemicolectomy. Patient otherwise resting healthy upon my evaluation - Related Data Allergies/Adverse Reactions: No Known Allergies Allergy (Verified 07/11/18 08:11) Past Medical History - Social History Smoking Status: Unknown if Ever Smoked Family History: Reviewed & Not Pertinent Patient has suicidal ideation: No Patient has homicidal ideation: No - Past Medical History Cardiac Medical History: Reports: Hx Hypercholesterolemia, Hx Hypertension Denies: Hx Heart Attack Pulmonary Medical History: Denies: Hx Asthma, Hx Tuberculosis Neurological Medical History: Denies: Hx Cerebrovascular Accident, Hx Seizures Renal/ Medical History: Denies: Hx Peritoneal Dialysis GI Medical History: Reports: Hx Diverticulitis, Hx Gastroesophageal Reflux Disease. Denies: Hx Crohn's Disease, Hx Hepatitis, Hx Hiatal Hernia, Hx Irritable Bowel, Hx Liver Failure, Hx Pancreatitis, Hx Ulcer Musculoskeletal Medical History: Reports Hx Arthritis, Denies Hx Fibromyalgia, Denies Hx Muscular Dystrophy Traumatic Medical History: Denies: Hx Fractures Infectious Medical History: Denies: Hx Hepatitis Past Surgical History: Reports: Hx Appendectomy, Hx Bowel Surgery - r/t divert iculitis. Denies: Hx Cholecystectomy, Hx Colostomy, Hx Coronary Artery Bypass Graft, Hx Gastric Bypass Surgery, Hx Herniorrhaphy, Hx Open Heart Surgery, Hx Pacemaker, Hx Tonsillectomy - Immunizations Hx Diphtheria, Pertussis, Tetanus Vaccination: Yes Hx Pneumococcal Vaccination: 08/09/11 Review of Systems - Review of Systems Constitutional: No symptoms reported EENT: No symptoms reported Cardiovascular: No symptoms reported Respiratory: No symptoms reported Gastrointestinal: Abdominal pain Genitourinary: No symptoms reported Male Genitourinary: No symptoms reported Musculoskeletal: No symptoms reported Skin: No symptoms reported Hematologic/Lymphatic: No symptoms reported Neurological/Psychological: No symptoms reported -: Yes All other systems reviewed and negative Physical Exam - Vital signs Vitals: Temp Pulse Resp BP Pulse Ox 97.5 F 62 18 148/86 H 98 10/08/18 07:58 10/08/18 07:58 10/08/18 07:58 10/08/18 07:58 10/08/18 07:58 Interpretation: Normal - General General appearance: Appears well, Alert - HEENT Head: Normocephalic, Atraumatic Eyes: Normal Pupils: PERRL - Respiratory Respiratory status: No respiratory distress Chest status: Nontender Breath sounds: Normal Chest palpation: Normal - Cardiovascular Rhythm: Regular Heart sounds: Normal auscultation Murmur: No - Abdominal Inspection: Normal Distension: No distension Bowel sounds: Normal Tenderness: Tender - Minimal tenderness in the left lower quadrant Organomegaly: No organomegaly - Back Back: Normal, Nontender - Extremities General upper extremity: Normal inspection, Nontender, Normal color, Normal ROM, Normal temperature General lower extremity: Normal inspection, Nontender, Normal color, Normal ROM, Normal temperature, Normal weight bearing. No: Garrett's sign - Neurological Neuro grossly intact: Yes Cognition: Normal Orientation: AAOx4 Fabián Coma Scale Eye Opening: Spontaneous [place] Coma Scale Verbal: Oriented [place] Coma Scale Motor: Obeys Commands Fabián Coma Scale Total: 15 Speech: Normal Motor strength normal: LUE, RUE, LLE, RLE Sensory: Normal - Psychological Associated symptoms: Normal affect, Normal mood - Skin Skin Temperature: Warm Skin Moisture: Dry Skin Color: Normal Course - Re-evaluation Re-evalutation: 10/08/18 15:55 Patient coming in for evaluation of left flank pain left lower quadrant tenderness with CAT scan showing inflammation signs of diverticulitis. We will treat the patient with Cipro and Flagyl. Patient was highly encouraged follow- up with primary care physician in [place] for repeat colonoscopy. Patient agrees this plan will be discharged home. - Vital Signs Vital signs: Temp Pulse Resp BP Pulse Ox 98.3 F 62 18 143/80 H 98 10/08/18 12:18 10/08/18 12:18 10/08/18 07:58 10/08/18 12:18 10/08/18 12:18 - Laboratory Result Diagrams: 10/08/18 08:45 10/08/18 08:45 Discharge - Discharge Clinical Impression: Diverticulitis Qualifiers: Diverticulitis site: large intestine Diverticulitis bleeding: without bleeding Diverticulitis complication: without perforation or abscess Qualified Code(s): K57.32 - Diverticulitis of large intestine without perforation or abscess without bleeding Condition: Good Disposition: HOME, SELF-CARE Instructions: Ciprofloxacin ([facility]), Diverticulitis ([facility]), Low Residue Diet ([facility]), Metronidazole ([facility]), Oral Narcotic Medication ([facility]) Additional Instructions: Your evaluation today is consistent with inflammation of your diverticulitis. I would recommend taking the antibiotics as prescribed Tylenol Motrin for pain control Reglan for nausea Ultram for severe pain. Please contact your GI specialist for further evaluation return to the ER symptoms worsen Prescriptions: Ciprofloxacin HCl [Cipro 500 mg Tablet] 500 mg PO BID #20 tablet Metoclopramide HCl [Reglan] 5 mg PO Q6 #30 tablet Metronidazole [Flagyl 500 mg Tablet] 500 mg PO TID #30 tablet Tramadol HCl [Ultram 50 mg Tablet] 50 mg PO ASDIR PRN #20 tablet PRN Reason: Referrals: ALBERT RODGERS MD [Primary Care Provider] - Follow up in 3-5 days
[2018-10-08 12:23] VITALS: BP 143/80
== END 2018-10-08 12:22 | disposition home or self-care (01) ==
LOC: ER 07:51
DX: K57.32 Diverticulitis of large intestine without perforation or abscess without bleeding (principal); I10 Essential (primary) hypertension; Z90.49 Acquired absence of other specified parts of digestive tract
CPT/HCPCS: 99284; 96360; 36415; 83690; 85025; 80053; 81001; 74177; A9270 ×2; J7030

== ENCOUNTER → 2018-10-23 | Outpatient (CLI) | payer MEDICARE, OTHER ==
[2018-10-23 08:35] LABS: ABSOLUTE EOSINOPHILS # (AUTO) 0.2 10^3/uL (0.0-0.6); ABSOLUTE LYMPHOCYTES (AUTO) 1.5 10^3/uL (0.5-4.7); ABSOLUTE MONOCYTES (AUTO) 0.7 10^3/uL (0.1-1.4); ABSOLUTE NEUT (AUTO) 3.5 10^3/uL (1.7-8.2); BASOPHILS % (AUTO) 0.4 % (0-2); EOSINOPHILS % (AUTO) 2.7 % (0-6); HEMATOCRIT 39.8 % (37.9-51.0); HEMOGLOBIN 13.6 g/dL (13.5-17.0); LYMPHOCYTES % (AUTO) 25.6 % (13-45); MEAN CORPUSCULAR HEMOGLOBIN 28.4 pg (27.0-33.4); MEAN CORPUSCULAR HGB CONC 34.2 g/dL (32.0-36.0); MEAN CORPUSCULAR VOLUME 83 fl (80-97); MONOCYTES % (AUTO) 11.4 % (3-13); PLATELET COUNT 229 10^3/uL (150-450); SEGMENTED NEUTROPHILS % (AUTO) 59.9 % (42-78); TOTAL CELLS COUNTED % (AUTO) 100 %; WHITE BLOOD COUNT 5.8 10^3/uL (4.0-10.5)
[2018-10-23 08:57] LABS: ALANINE AMINOTRANSFERASE 32 U/L (21-72); ALBUMIN 4.3 g/dL (3.5-5.0); ALKALINE PHOSPHATASE 67 U/L (38-126); ANION GAP 6 (5-19); ASPARTATE AMINO TRANSFERASE 24 U/L (17-59); BILIRUBIN,DIRECT 0.1 mg/dL (0.0-0.4); BILIRUBIN,TOTAL 0.5 mg/dL (0.2-1.3); BLOOD UREA NITROGEN 13 mg/dL (7-20); CALCIUM 9.6 mg/dL (8.4-10.2); CARBON DIOXIDE 33 mmol/L (22-30); CHLORIDE 100 mmol/L (98-107); CHOLESTEROL 193.36 mg/dL (0-200); GLUCOSE 101 mg/dL (75-110); POTASSIUM 4.9 mmol/L (3.6-5.0); SODIUM 139.2 mmol/L (137-145); TOTAL PROTEIN 6.9 g/dL (6.3-8.2); TRIGLYCERIDES 127 mg/dL (<150)
[2018-10-23 09:08] LABS: DIRECT LDL 94 mg/dL (<100)
== END ==
LOC: OD 07:43
PROVIDERS: ATTEND Internal Medicine
DX: I10 Essential (primary) hypertension (principal); N52.9 Male erectile dysfunction, unspecified; R53.83 Other fatigue; K57.32 Diverticulitis of large intestine without perforation or abscess without bleeding; R35.0 Frequency of micturition; Z12.5 Encounter for screening for malignant neoplasm of prostate
CPT/HCPCS: 36415; 80053; 80061; 84153; 85025

== ENCOUNTER 2019-03-02 07:52 | Emergency (ER) | payer MEDICARE, OTHER ==
--- NOTE | 2019-03-02 08:34 | ER Document Report ---
ED General - General Chief Complaint: Abdominal Pain Stated Complaint: ABDOMINAL PAIN Time Seen by Provider: 03/02/19 08:33 Primary Care Provider: ALBERT RODGERS MD [Primary Care Provider] - Follow up as needed Mode of Arrival: Ambulatory Information source: Patient, Relative, [facility] Records Notes: 73-year-old male with hypertension, hyperlipidemia, diverticulosis presents with complaint of 1 week of left flank pain. Patient describes the pain as sharp, intermittent and not associated with nausea, vomiting, diarrhea, dysuria, fever, chills. Patient has had prior similar symptoms with his diverticulitis and reports his last flare approximately 5 months ago. Patient does have a history of colectomy because of his diverticulitis. He does see Dr. Cardoza and reports a colonoscopy within the last year. Patient denies history of kidney stone. TRAVEL OUTSIDE OF THE [place] IN LAST 30 DAYS: No - HPI Onset: Last week Onset/Duration: Gradual, Persistent, Worse Quality of pain: Sharp Severity: Moderate Pain Level: 2 Associated symptoms: denies: Chest pain, Diarrhea, Fever, Nausea, Vomiting, Shortness of breath Exacerbated by: Denies Relieved by: Denies Similar symptoms previously: Yes Recently seen / treated by doctor: Yes - Related Data Allergies/Adverse Reactions: No Known Allergies Allergy (Verified 03/02/19 08:02) Past Medical History - General Information source: Patient, Relative, [facility] Records - Social History Smoking Status: Never Smoker Frequency of alcohol use: Occasional Drug Abuse: None Lives with: Spouse/Significant other Family History: Reviewed & Not Pertinent - Past Medical History Cardiac Medical History: Reports: Hx Hypercholesterolemia, Hx Hypertension Denies: Hx Heart Attack Pulmonary Medical History: Denies: Hx Asthma, Hx Tuberculosis Neurological Medical History: Denies: Hx Cerebrovascular Accident, Hx Seizures Renal/ Medical History: Denies: Hx Peritoneal Dialysis GI Medical History: Reports: Hx Diverticulitis, Hx Gastroesophageal Reflux Di sease. Denies: Hx Crohn's Disease, Hx Hepatitis, Hx Hiatal Hernia, Hx Irritable Bowel, Hx Liver Failure, Hx Pancreatitis, Hx Ulcer Musculoskeletal Medical History: Reports Hx Arthritis, Denies Hx Fibromyalgia, Denies Hx Muscular Dystrophy Traumatic Medical History: Denies: Hx Fractures Infectious Medical History: Denies: Hx Hepatitis Past Surgical History: Reports: Hx Appendectomy, Hx Bowel Surgery - r/t diverticulitis. Denies: Hx Cholecystectomy, Hx Colostomy, Hx Coronary Artery Bypass Graft, Hx Gastric Bypass Surgery, Hx Herniorrhaphy, Hx Open Heart Surgery, Hx Pacemaker, Hx Tonsillectomy - Immunizations Hx Diphtheria, Pertussis, Tetanus Vaccination: Yes Hx Pneumococcal Vaccination: 08/09/11 Review of Systems - Review of Systems Notes: REVIEW OF SYSTEMS: CONSTITUTIONAL : Denies fever, chills, or sweats. Denies recent illness. Denies weight loss, recent hospitalizations. EENT: Denies visual changes, eye pain. Denies sore throat, oral lesions, dif ficulty swallowing. CARDIOVASCULAR: Denies chest pain. Denies palpitations. Denies lower extremity edema. RESPIRATORY: Denies cough. Denies shortness of breath, wheezing. GASTROINTESTINAL: Denies abdominal distention. Denies nausea, vomiting, or diarrhea. Denies blood in vomitus, stools, or per rectum. Denies black, tarry stools. Denies constipation. GENITOURINARY: Denies difficulty urinating, painful urination, frequency, blood in urine, testicular pain or penile discharge. MUSCULOSKELETAL: Denies neck pain or stiffness. Denies joint pain or swelling. SKIN: Denies rash, lesions or sores. HEMATOLOGIC : Denies easy bruising or bleeding. LYMPHATIC: Denies swollen glands. NEUROLOGICAL: Denies confusion or altered mental status. Denies loss of consciousness. Denies dizziness or lightheadedness. Denies headache. Denies weakness or paralysis. Denies problems difficulty with ambulation, slurred speech. Denies sensory loss, numbness, or tingling. Denies seizures. PSYCHIATRIC: Denies anxiety or stress. Denies depression, suicidal ideation, or Physical Exam - Vital signs Vitals: Temp Pulse Resp BP Pulse Ox 98.1 F 58 L 16 126/64 H 95 03/02/19 08:06 03/02/19 08:06 03/02/19 08:06 03/02/19 08:06 03/02/19 08:06 - Notes Notes: PHYSICAL EXAMINATION: GENERAL: Well-appearing, well-nourished and in no acute distress. HEAD: Atraumatic, normocephalic. EYES: Pupils equal round and reactive to light, extraocular movements intact, sclera anicteric, conjunctiva are normal. ENT: Nares patent, oropharynx clear without exudates. Moist mucous membranes. NECK: Normal range of motion, supple without lymphadenopathy LUNGS: Breath sounds clear to auscultation bilaterally and equal. No wheezes rales or rhonchi. HEART: Regular rate and rhythm without murmurs ABDOMEN: Soft, tender Ransom with palpation to the left lower quadrant, nond istended abdomen. No guarding, no rebound. No masses appreciated. Left CVA tenderness Musculoskeletal: Normal range of motion, no pitting or edema. No cyanosis. NEUROLOGICAL: Cranial nerves grossly intact. Normal speech, normal gait. Normal sensory, motor exams PSYCH: Normal mood, normal affect. SKIN: Warm, Dry, normal turgor, no rashes or lesions noted. Course - Re-evaluation Re-evalutation: 03/02/19 10:47 Laboratory 03/02/19 03/02/19 03/02/19 08:40 08:40 09:30 WBC 7.6 RBC 4.79 Hgb 13.5 Hct 40.2 MCV 84 MCH 28.2 MCHC 33.6 RDW 13.1 Plt Count 199 Seg Neutrophils % 68.6 Lymphocytes % 19.8 Monocytes % 9.3 Eosinophils % 2.0 Basophils % 0.3 Absolute Neutrophils 5.2 Absolute Lymphocytes 1.5 Absolute Monocytes 0.7 Absolute Eosinophils 0.2 Absolute Basophils 0.0 Sodium 140.1 Potassium 4.3 Chloride 105 Carbon Dioxide 28 Anion Gap 7 BUN 15 Creatinine 0.86 Est GFR ( Amer) > 60 Est GFR (Non-Af Amer) > 60 Glucose 91 Calcium 9.3 Total Bilirubin 0.7 Direct Bilirubin 0.2 Neonat Total Bilirubin Not Reportable Neonat Direct Bilirubin Not Reportable Neonat Indirect Bili Not Reportable AST 29 ALT 33 Alkaline Phosphatase 65 Total Protein 6.7 Albumin 4.1 Lipase 36.2 Urine Color YELLOW Urine Appearance CLEAR Urine pH 7.0 Ur Specific Putney 1.021 Urine Protein NEGATIVE Urine Glucose (UA) NEGATIVE Urine Ketones NEGATIVE Urine Blood NEGATIVE Urine Nitrite NEGATIVE Urine Bilirubin NEGATIVE Urine Urobilinogen NEGATIVE Ur Leukocyte Esterase NEGATIVE Urine WBC (Auto) 0 Urine RBC (Auto) 0 Amorphous Sediment Auto TRACE Urine Mucus (Auto) RARE Urine Ascorbic Acid NEGATIVE Abdomen/Pelvis CT 03/02/19 09:17 IMPRESSION: Sigmoid diverticulitis. Temp Pulse Resp BP Pulse Ox 98.1 F 58 L 16 126/64 H 95 03/02/19 08:06 03/02/19 08:06 03/02/19 08:06 03/02/19 08:06 03/02/19 08:06 73-year-old male with a history of diverticulitis presents with left lower quadrant and left flank pain that started 1 week ago. Vital signs reviewed and within normal limits. Patient does not appear toxic or dehydrated. Abdominal exam is significant for left lower quadrant tenderness with palpation. CBC is without leukocytosis or anemia. CMP is without electrolyte abnormality, urinalysis not consistent with infection. Patient did receive IV morphine, Z ofran and on reevaluation states his pain has improved. Patient was given a prescription for moxifloxacin and Zofran. Patient tolerating p.o. Patient was evaluated and treated as appropriate for the patient's presenting symptoms and complaint, with consideration of any critical or life threatening conditions that may be associated with their obtained history and exam as noted above. All results were discussed with patient and his who is at the bedside. Patient provided the opportunity to ask questions, and express concerns. Patient was educated on treatments based on their presumed diagnosis as noted above. At this time we will discharge the patient with return precautions and follow-up recommendations. Verbal discharge instructions given a the bedside. Medication warnings reviewed. Patient is in agreement with this plan and has verbalized understanding of return precautions. After careful consideration I feel that that patient can be safely discharged from the emergency department, they were advised to followup with a primary care physician in 2-3 days. Dictation on this chart was performed using voice recognition software and may result in unintended grammatical, spelling, syntax or errors. - Vital Signs Vital signs: Temp Pulse Resp BP Pulse Ox 98.1 F 58 L 16 126/64 H 95 03/02/19 08:06 03/02/19 08:06 03/02/19 08:06 03/02/19 08:06 03/02/19 08:06 - Laboratory Result Diagrams: 03/02/19 08:40 03/02/19 08:40 - Diagnostic Test Radiology reviewed: Image reviewed, Reports reviewed Discharge - Discharge Clinical Impression: Diverticulitis Qualifiers: Diverticulitis site: large intestine Diverticulitis bleeding: without bleeding Diverticulitis complication: without perforation or abscess Qualified Code(s): K57.32 - Diverticulitis of large intestine without perforation or abscess without bleeding Condition: Good Disposition: HOME, SELF-CARE Instructions: Diverticulitis ([facility]), Abdominal Pain ([facility]) Additional Instructions: You were seen today for focal pain in your left lower quadrant. Your labs, exam, and imaging suggest a diagnosis of diverticulitis. This is an inflammation of a part of your colon. You are being started on antibiotics to treat this infection and inflammation. Please take all of them as directed and complete them even if your symptoms resolve. Please follow-up with your primary care physician within the next 48 hours. Return to the emergency department immediately if you develop worsening pain, persistent vomiting, began having bloody stools, develop a fever of greater than 101F, or have any other symptoms that are concerning to you. Prescriptions: Moxifloxacin HCl 400 mg PO DAILY #10 tablet Ondansetron [Zofran Odt 4 mg Tablet] 1 - 2 tab PO Q4H PRN #15 tab.rapdis PRN Reason: For Nausea/Vomiting Forms: Elevated Blood Pressure Referrals: ALBERT RODGERS MD [Primary Care Provider] - Follow up as needed
[2019-03-02 09:03] LABS: ABSOLUTE EOSINOPHILS # (AUTO) 0.2 10^3/uL (0.0-0.6); ABSOLUTE LYMPHOCYTES (AUTO) 1.5 10^3/uL (0.5-4.7); ABSOLUTE MONOCYTES (AUTO) 0.7 10^3/uL (0.1-1.4); ABSOLUTE NEUT (AUTO) 5.2 10^3/uL (1.7-8.2); BASOPHILS % (AUTO) 0.3 % (0-2); HEMATOCRIT 40.2 % (37.9-51.0); HEMOGLOBIN 13.5 g/dL (13.5-17.0); LYMPHOCYTES % (AUTO) 19.8 % (13-45); MEAN CORPUSCULAR HEMOGLOBIN 28.2 pg (27.0-33.4); MEAN CORPUSCULAR HGB CONC 33.6 g/dL (32.0-36.0); MEAN CORPUSCULAR VOLUME 84 fl (80-97); MONOCYTES % (AUTO) 9.3 % (3-13); PLATELET COUNT 199 10^3/uL (150-450); RED BLOOD COUNT 4.79 10^6/uL (4.35-5.55); RED CELL DISTRIBUTION WIDTH 13.1 % (11.5-14.0); SEGMENTED NEUTROPHILS % (AUTO) 68.6 % (42-78); TOTAL CELLS COUNTED % (AUTO) 100 %; WHITE BLOOD COUNT 7.6 10^3/uL (4.0-10.5)
[2019-03-02 09:15] LABS: ALANINE AMINOTRANSFERASE 33 U/L (21-72); ALBUMIN 4.1 g/dL (3.5-5.0); ALKALINE PHOSPHATASE 65 U/L (38-126); ANION GAP 7 (5-19); ASPARTATE AMINO TRANSFERASE 29 U/L (17-59); BILIRUBIN,DIRECT 0.2 mg/dL (0.0-0.4); BILIRUBIN,TOTAL 0.7 mg/dL (0.2-1.3); BLOOD UREA NITROGEN 15 mg/dL (7-20); CALCIUM 9.3 mg/dL (8.4-10.2); CARBON DIOXIDE 28 mmol/L (22-30); CHLORIDE 105 mmol/L (98-107); GLUCOSE 91 mg/dL (75-110); LIPASE 36.2 U/L (23-300); POTASSIUM 4.3 mmol/L (3.6-5.0); SODIUM 140.1 mmol/L (137-145); TOTAL PROTEIN 6.7 g/dL (6.3-8.2)
[2019-03-02] MEDS ORDERED: ONDANSETRON HCL INJ/PF 4 MG/2 ML SDV IV ONE (09:41)
[2019-03-02] MEDS ORDERED: MORPHINE SULFATE 10 MG/ML INJ IV ONE (09:41)
[2019-03-02 10:12] LABS: AMORPHOUS SEDIMENT,URINE TRACE /HPF; APPEARANCE,URINE CLEAR; BILIRUBIN,URINE NEGATIVE (NEGATIVE); COLOR,URINE YELLOW; GLUCOSE, URINE NEGATIVE (NEGATIVE); KETONES,URINE NEGATIVE (NEGATIVE); LEUKOCYTE ESTERASE,URINE NEGATIVE (NEGATIVE); NITRITE,URINE NEGATIVE (NEGATIVE); PROTEIN,URINE NEGATIVE (NEGATIVE); URINE SPECIFIC GRAVITY 1.021; UROBILINOGEN,URINE NEGATIVE mg/dL (<2.0)
--- NOTE | 2019-03-02 10:29 | RADIOLOGY REPORT (SQ) ---
EXAM DESCRIPTION: CT ABD/PELVIS WITH IV ONLY COMPLETED DATE/TIME: 03/02/2019 10:11 am REASON FOR STUDY: left flank pain h/o diverticulitis COMPARISON: 10/08/2018 TECHNIQUE: CT scan of the abdomen and pelvis performed using helical scanning technique with dynamic intravenous contrast injection. No oral contrast. Images reviewed with lung, soft tissue, and bone windows. Reconstructed coronal and sagittal MPR images reviewed. Delayed images for evaluation of the urinary system also acquired. All images stored on PACS. All CT scanners at this facility use dose modulation, iterative reconstruction, and/or weight based d osing when appropriate to reduce radiation dose to as low as reasonably achievable (ALARA). [facility]: Dose Right [facility]: CareDose [facility]: Dose Right [facility]: Teradose 4D [facility]: [employer] CONTRAST TYPE AND DOSE: 100 cc Isovue 370- low osmolar. RENAL FUNCTION: GFR > 60. RADIATION DOSE: CT Rad equipment meets quality standard of care and radiation dose reduction techniq ues were employed. CTDIvol: 14.1 - 18.4 mGy. DLP: 1782 mGy-cm.. LIMITATIONS: None. FINDINGS: LOWER CHEST: No significant findings. No nodules or infiltrates. LIVER: Normal size. No masses. No dilated ducts. SPLEEN: Normal size. No focal lesions. PANCREAS: No masses. No significant calcifications. No adjacent inflammation or peripancreatic fluid collections. Pancreatic duct not dilated. GALLBLADDER: No identified stones by CT criteria. No inflammatory changes to suggest cholecystitis. ADRENAL GLANDS: No significant masses or asymmetry. RIGHT KIDNEY AND URETER: No solid masses. No significant calcifications. No hydronephrosis or hyd roureter. LEFT KIDNEY AND URETER: No solid masses. No significant calcifications. No hydronephrosis or hydr oureter. AORTA AND VESSELS: No aneurysm. No dissection. Renal arteries, SMA, celiac without stenosis. RETROPERITONEUM: No retroperitoneal adenopathy, hemorrhage or masses. BOWEL AND PERITONEAL CAVITY: Prior right hemicolectomy. Subtle inflammation in the mesenteric the de scending colon segment containing diverticulum. No ascites or free air. APPENDIX: Surgically absent. PELVIS: No mass. No free fluid. Normal bladder. ABDOMINAL WALL: Prior anterior abdominal wall hernia repair. BONES: Nothing acute OTHER: No other significant finding. IMPRESSION: Sigmoid diverticulitis. TECHNICAL DOCUMENTATION: JOB ID: [id number] Quality ID # [id number]: Final reports with documentation of one or more dose reduction techniques (e.g., Au tomated exposure control, adjustment of the mA and/or kV according to patient size, use of iterative reconstruction technique) 2010 [employer]- All Rights Reserved Reading location - IP/workstation name: [email or web address]
[2019-03-02] MEDS ORDERED: METRONIDAZOLE 500 MG TABLET PO ONE ×2 (10:39→10:44)
[2019-03-02] MEDS ORDERED: CIPROFLOXACIN 400 MG/D5W RTU 400 MG/200 ML RTUPB IV SCH (11:00)
[2019-03-02 11:12] VITALS: BP 136/74
== END 2019-03-02 11:16 | disposition home or self-care (01) ==
LOC: ER 07:52
DX: K57.32 Diverticulitis of large intestine without perforation or abscess without bleeding (principal); R10.9 Unspecified abdominal pain; I10 Essential (primary) hypertension; E78.5 Hyperlipidemia, unspecified; E78.00 Pure hypercholesterolemia, unspecified
CPT/HCPCS: 99284; 96374; 96375; 36415; 83690; 85025; 80053; 81001; 74177; J2270; J2405; A9270

== ENCOUNTER → 2019-03-06 | Outpatient (CLI) | payer MEDICARE, OTHER ==
[2019-03-06 08:22] LABS: ALANINE AMINOTRANSFERASE 24 U/L (21-72); ALBUMIN 4.2 g/dL (3.5-5.0); ALKALINE PHOSPHATASE 64 U/L (38-126); ANION GAP 9 (5-19); ASPARTATE AMINO TRANSFERASE 25 U/L (17-59); BILIRUBIN,DIRECT 0.2 mg/dL (0.0-0.4); BILIRUBIN,TOTAL 0.5 mg/dL (0.2-1.3); BLOOD UREA NITROGEN 16 mg/dL (7-20); CALCIUM 9.5 mg/dL (8.4-10.2); CARBON DIOXIDE 27 mmol/L (22-30); CHLORIDE 104 mmol/L (98-107); CHOLESTEROL 194.14 mg/dL (0-200); GLUCOSE 102 mg/dL (75-110); POTASSIUM 4.3 mmol/L (3.6-5.0); SODIUM 140.2 mmol/L (137-145); TOTAL PROTEIN 6.8 g/dL (6.3-8.2); TRIGLYCERIDES 216 mg/dL (<150)
[2019-03-06 08:33] LABS: DIRECT LDL 88 mg/dL (<100)
[2019-03-06 08:37] LABS: VLDL CHOLESTEROL 43.2 mg/dL (10-31)
== END ==
LOC: OD 07:27
PROVIDERS: ATTEND Internal Medicine
DX: I25.10 Atherosclerotic heart disease of native coronary artery without angina pectoris (principal); I10 Essential (primary) hypertension; E78.49 Other hyperlipidemia; R01.1 Cardiac murmur, unspecified; K21.9 Gastro-esophageal reflux disease without esophagitis; Z79.899 Other long term (current) drug therapy
CPT/HCPCS: 36415; 80053; 80061

== ENCOUNTER 2019-06-14 10:25 | Emergency (ER) | payer MEDICARE, OTHER ==
[2019-06-14 11:18] LABS: APPEARANCE,URINE CLEAR; BILIRUBIN,URINE NEGATIVE (NEGATIVE); COLOR,URINE YELLOW; GLUCOSE, URINE NEGATIVE (NEGATIVE); KETONES,URINE NEGATIVE (NEGATIVE); LEUKOCYTE ESTERASE,URINE NEGATIVE (NEGATIVE); NITRITE,URINE NEGATIVE (NEGATIVE); PROTEIN,URINE NEGATIVE (NEGATIVE); URINE SPECIFIC GRAVITY 1.012; UROBILINOGEN,URINE NEGATIVE mg/dL (<2.0)
--- NOTE | 2019-06-14 13:05 | RADIOLOGY REPORT (SQ) ---
EXAM DESCRIPTION: U/S SCROTUM W/DOPPLER COMPLETED DATE/TIME: 06/14/2019 12:35 pm REASON FOR STUDY: Right testicle and epididymis pain COMPARISON: None. TECHNIQUE: Static and realtime zamora scale imaging of the scrotum and testes. Selected color Doppler and spectral images recorded to document blood flow. LIMITATIONS: None. FINDINGS: RIGHT: TESTICLE: Normal size. Heterogeneous echotexture. Normal blood flow. No mass. EPIDIDYMIS: Normal. HYDROCELE OR VARICOCELE: No. HERNIA OR EXTRA-TESTICULAR MASS: No. OTHER: No other significant finding. LEFT: TESTICLE: Normal size. Heterogeneous echotexture. Normal blood flow. No mass. EPIDIDYMIS: Normal. HYDROCELE OR VARICOCELE: There is a small left varicocele. HERNIA OR EXTRA-TESTICULAR MASS: No. OTHER: No other significant finding. IMPRESSION: 1. Small left varicocele. 2. Heterogeneous echotexture bilaterally. Symmetric flow. Findings are nonspecific. TECHNICAL DOCUMENTATION: JOB ID: [id number] [employer]- All Rights Reserved Reading location - IP/workstation name: [email or web address]
[2019-06-14 14:24] VITALS: BP 146/88
== END 2019-06-14 14:09 | disposition home or self-care (01) ==
LOC: ER 10:25
DX: Z53.21 Procedure and treatment not carried out due to patient leaving prior to being seen by health care provider (principal); M54.5 Low back pain; N50.811 Right testicular pain
CPT/HCPCS: 76870; 81001; 93976; 99284

== ENCOUNTER 2019-08-02 06:53 | Emergency (ER) | payer MEDICARE, OTHER ==
[2019-08-02] MEDS ORDERED: ASPIRIN 81 MG TABLET, CHEWABLE PO ONE (07:02)
[2019-08-02 08:52] LABS: ABSOLUTE EOSINOPHILS # (AUTO) 0.1 10^3/uL (0.0-0.6); ABSOLUTE LYMPHOCYTES (AUTO) 1.4 10^3/uL (0.5-4.7); ABSOLUTE MONOCYTES (AUTO) 0.7 10^3/uL (0.1-1.4); ABSOLUTE NEUT (AUTO) 3.5 10^3/uL (1.7-8.2); BASOPHILS % (AUTO) 0.5 % (0-2); EOSINOPHILS % (AUTO) 2.5 % (0-6); HEMATOCRIT 38.3 % (37.9-51.0); HEMOGLOBIN 12.8 g/dL (13.5-17.0); LYMPHOCYTES % (AUTO) 24.7 % (13-45); MEAN CORPUSCULAR HEMOGLOBIN 28.2 pg (27.0-33.4); MEAN CORPUSCULAR HGB CONC 33.4 g/dL (32.0-36.0); MEAN CORPUSCULAR VOLUME 84 fl (80-97); MONOCYTES % (AUTO) 11.8 % (3-13); PLATELET COUNT 177 10^3/uL (150-450); RED BLOOD COUNT 4.54 10^6/uL (4.35-5.55); RED CELL DISTRIBUTION WIDTH 13.1 % (11.5-14.0); SEGMENTED NEUTROPHILS % (AUTO) 60.5 % (42-78); TOTAL CELLS COUNTED % (AUTO) 100 %; WHITE BLOOD COUNT 5.7 10^3/uL (4.0-10.5)
--- NOTE | 2019-08-02 08:54 | RADIOLOGY REPORT (SQ) ---
EXAM DESCRIPTION: CHEST 2 VIEWS COMPLETED DATE/TIME: 08/02/2019 8:34 am REASON FOR STUDY: cp COMPARISON: PA and lateral views of the chest from 08/22/2017. EXAM PARAMETERS: NUMBER OF VIEWS: two views TECHNIQUE: Digital Frontal and Lateral radiographic views of the chest acquired. RADIATION DOSE: NA LIMITATIONS: none FINDINGS: LUNGS AND PLEURA: Probable left basilar atelectasis. There is no consolidation, pleural e ffusion or pneumothorax. MEDIASTINUM AND HILAR STRUCTURES: No mediastinal or hilar contour abnormality. HEART AND VASCULAR STRUCTURES: The cardiac silhouette and pulmonary vasculature are within normal mary its. BONES: No acute findings. HARDWARE: None. OTHER: No other finding. IMPRESSION: Left basilar atelectasis. TECHNICAL DOCUMENTATION: JOB ID: [id number] [employer]- All Rights Reserved Reading location - IP/workstation name: [email or web address]
[2019-08-02 09:14] LABS: ALBUMIN 3.9 g/dL (3.5-5.0); ALKALINE PHOSPHATASE 59 U/L (38-126); ANION GAP 7 (5-19); ASPARTATE AMINO TRANSFERASE 29 U/L (17-59); BILIRUBIN,TOTAL 0.6 mg/dL (0.2-1.3); BLOOD UREA NITROGEN 14 mg/dL (7-20); CALCIUM 9.5 mg/dL (8.4-10.2); CARBON DIOXIDE 27 mmol/L (22-30); CHLORIDE 104 mmol/L (98-107); CREATINE KINASE 253 U/L (55-170); GLUCOSE 102 mg/dL (75-110); TOTAL PROTEIN 6.5 g/dL (6.3-8.2)
[2019-08-02 09:15] LABS: APPEARANCE,URINE CLEAR; BILIRUBIN,URINE NEGATIVE (NEGATIVE); COLOR,URINE STRAW; GLUCOSE, URINE NEGATIVE (NEGATIVE); KETONES,URINE NEGATIVE (NEGATIVE); LEUKOCYTE ESTERASE,URINE NEGATIVE (NEGATIVE); NITRITE,URINE NEGATIVE (NEGATIVE); PROTEIN,URINE NEGATIVE (NEGATIVE); URINE SPECIFIC GRAVITY 1.008; UROBILINOGEN,URINE NEGATIVE mg/dL (<2.0)
[2019-08-02 09:29] LABS: CREATINE KINASE MB 2.52 ng/mL (<4.55)
[2019-08-02 09:30] LABS: TROPONIN I < 0.012 ng/mL
--- NOTE | 2019-08-02 09:59 | ER Document Report ---
ED General - General Chief Complaint: Chest Pain Stated Complaint: CHEST PAIN,HEADACHES Time Seen by Provider: 08/02/19 09:32 Primary Care Provider: ALBERT RODGERS MD [Primary Care Provider] - Follow up as needed TRAVEL OUTSIDE OF THE [place] IN LAST 30 DAYS: No - HPI Notes: Patient is a very pleasant 73-year-old male who presents emergency department for evaluation of substernal chest pain. He describes it as a burning. It does not radiate. He states he felt slightly nauseated with the earlier. He states this started about 1:30 in the morning while he was sleeping. He was "up and down all night" with this pain. He tried some Tums and did not have any significant relief. He has had pain like this in the past. He continues to take his home medications as prescribed. He denies any associated shortness of breath, diaphoresis, near syncope. - Related Data Allergies/Adverse Reactions: No Known Allergies Allergy (Verified 06/14/19 10:27) Home Medications: List reviewed, please see note. Past Medical History - Social History Smoking Status: Former Smoker Chew tobacco use (# tins/day): No Frequency of alcohol use: None Drug Abuse: None Family History: Reviewed & Not Pertinent Patient has suicidal ideation: No Patient has homicidal ideation: No - Past Medical History Cardiac Medical History: Reports: Hx Hypercholesterolemia, Hx Hypertension Denies: Hx Heart Attack Pulmonary Medical History: Denies: Hx Asthma, Hx Tuberculosis Neurological Medical History: Denies: Hx Cerebrovascular Accident, Hx Seizures Renal/ Medical History: Denies: Hx Peritoneal Dialysis GI Medical History: Reports: Hx Diverticulitis, Hx Gastroesophageal Reflux Disease. Denies: Hx Crohn's Disease, Hx Hepatitis, Hx Hiatal Hernia, Hx Irritable Bowel, Hx Liver Failure, Hx Pancreatitis, Hx Ulcer Musculoskeletal Medical History: Reports Hx Arthritis, Denies Hx Fibromyalgia, Denies Hx Muscular Dystrophy Traumatic Medical History: Denies: Hx Fractures Infectious Medical History: Denies: Hx Hepatitis Past Surgical History: Reports: Hx Appendectomy, Hx Bowel Surgery - r/t diverticulitis. Denies: Hx Cholecystectomy, Hx Colostomy, Hx Coronary Artery B ypass Graft, Hx Gastric Bypass Surgery, Hx Herniorrhaphy, Hx Open Heart Surgery, Hx Pacemaker, Hx Tonsillectomy - Immunizations Hx Diphtheria, Pertussis, Tetanus Vaccination: Yes Hx Pneumococcal Vaccination: 08/09/11 Review of Systems - Review of Systems Constitutional: No symptoms reported EENT: No symptoms reported Cardiovascular: See HPI Respiratory: No symptoms reported Gastrointestinal: See HPI Genitourinary: No symptoms reported Musculoskeletal: No symptoms reported Skin: No symptoms reported Neurological/Psychological: No symptoms reported Physical Exam - Vital signs Vitals: Temp Pulse Resp BP Pulse Ox 98.3 F 59 L 18 141/79 H 99 08/02/19 07:07 08/02/19 07:07 08/02/19 07:07 08/02/19 07:07 08/02/19 07:07 - Notes Notes: Vital signs reviewed, please refer to chart. Head is normocephalic, atraumatic. Pupils equal round, reactive to light. Neck is supple without meningismus. Heart is regular rate and rhythm. Lungs are clear to auscultation bilaterally. Abdomen is soft, nontender, normoactive bowel sounds throughout. He has a well- healing midline surgical scar noted without signs of dehiscence. Extremities without cyanosis, clubbing. Posterior calves are nontender. Peripheral pulses are equal. Skin is warm and dry. Patient is awake, alert, neurological exam is nonfocal. Course - Re-evaluation Re-evalutation: 08/02/19 12:45 Presents emergency department for evaluation of chest pain. It started when he was laying down at night. It seems more consistent with heartburn. The patient had negative troponins x2. He did not have any recurrence of his chest pain here. He Jamie has an outpatient stress test scheduled for August 12. He understands that if his pain returns, you develop new symptoms needs to return. Otherwise he is to follow-up with his outpatient stress test, see primary care. He is to make sure he is addressing all of his risk factors. Return to the ED with worsening or new concerning symptoms of any sort. - Vital Signs Vital signs: Temp Pulse Resp BP Pulse Ox 97.6 F 57 L 18 122/55 L 84 L 08/02/19 07:11 08/02/19 07:11 08/02/19 07:11 08/02/19 07:11 08/02/19 08:18 - Laboratory Result Diagrams: 08/02/19 08:40 08/02/19 08:40 Laboratory results interpreted by me: 08/02/19 08/02/19 08:40 08:40 Hgb 12.8 L Creatine Kinase 253 H - Diagnostic Test Radiology reviewed: Reports reviewed Radiology results interpreted by me: 08/02/19 09:58 Chest X-Ray 08/02/19 00:00 IMPRESSION: Left basilar atelectasis. - EKG Interpretation by Me Additional EKG results interpreted by me: 08/02/19 09:58 Sinus bradycardia with a rate of 56 bpm. Normal axis and intervals, no acute ST changes concerning for ischemia or infarction. Discharge - Discharge Clinical Impression: Chest pain Qualifiers: Chest pain type: other chest pain Qualified Code(s): R07.89 - Other chest pain; R07.8 - Other chest pain GERD (gastroesophageal reflux disease) Qualifiers: Esophagitis presence: esophagitis presence not specified Qualified Code(s): K21.9 - Gastro-esophageal reflux disease without esophagitis Condition: Stable Disposition: HOME, SELF-CARE Instructions: Chest Pain of Unclear Cause ([facility]) Additional Instructions: Please follow-up with primary care as soon as possible. Have your stress test as scheduled. If you develop worsening or new concerning symptoms of any sort, return immediately to the emergency department for evaluation. Referrals: ALBERT RODGERS MD [Primary Care Provider] - Follow up as needed
[2019-08-02 12:56] VITALS: BP 122/75
--- NOTE | 2019-08-03 13:09 | EKG REPORT ---
SEVERITY:- NORMAL ECG - SINUS RHYTHM : Confirmed by: Anel Wadsworth MD 03-Aug-2019 13:08:26
== END 2019-08-02 12:55 | disposition home or self-care (01) ==
LOC: ER 06:53
DX: R07.2 Precordial pain (principal); K21.9 Gastro-esophageal reflux disease without esophagitis; J98.11 Atelectasis; R11.0 Nausea; R00.1 Bradycardia, unspecified; I10 Essential (primary) hypertension; Z87.891 Personal history of nicotine dependence
CPT/HCPCS: 93005; 99284; 36415; 82553; 82550; 85025; 80053; 81001; 84484; 71046; 93010; A9270

== ENCOUNTER → 2019-08-15 | Outpatient (CLI) | payer MEDICARE, OTHER ==
[2019-08-15 08:47] LABS: BLOOD UREA NITROGEN 13 mg/dL (7-20)
== END ==
LOC: OD 07:41
PROVIDERS: ATTEND Physician Assistant
DX: M54.5 Low back pain (principal)
CPT/HCPCS: 36415; 82565; 84520

== ENCOUNTER → 2019-09-27 | Outpatient (CLI) | payer MEDICARE, OTHER ==
[2019-09-27 09:09] LABS: ABSOLUTE EOSINOPHILS # (AUTO) 0.2 10^3/uL (0.0-0.6); ABSOLUTE LYMPHOCYTES (AUTO) 1.2 10^3/uL (0.5-4.7); ABSOLUTE MONOCYTES (AUTO) 0.6 10^3/uL (0.1-1.4); ABSOLUTE NEUT (AUTO) 2.9 10^3/uL (1.7-8.2); BASOPHILS % (AUTO) 0.5 % (0-2); EOSINOPHILS % (AUTO) 3.4 % (0-6); HEMATOCRIT 38.7 % (37.9-51.0); HEMOGLOBIN 12.9 g/dL (13.5-17.0); LYMPHOCYTES % (AUTO) 23.8 % (13-45); MEAN CORPUSCULAR HEMOGLOBIN 28.1 pg (27.0-33.4); MEAN CORPUSCULAR HGB CONC 33.4 g/dL (32.0-36.0); MEAN CORPUSCULAR VOLUME 84 fl (80-97); MONOCYTES % (AUTO) 12.8 % (3-13); PLATELET COUNT 203 10^3/uL (150-450); RED BLOOD COUNT 4.59 10^6/uL (4.35-5.55); RED CELL DISTRIBUTION WIDTH 13.2 % (11.5-14.0); SEGMENTED NEUTROPHILS % (AUTO) 59.5 % (42-78); TOTAL CELLS COUNTED % (AUTO) 100 %; WHITE BLOOD COUNT 4.9 10^3/uL (4.0-10.5)
[2019-09-27 09:50] LABS: ERYTHROCYTE SEDIMENTATION RATE 11 mm/hr (0-20)
== END ==
LOC: OD 07:35
PROVIDERS: ATTEND Pain Medicine Pain Medicine
DX: L08.9 Local infection of the skin and subcutaneous tissue, unspecified (principal); R50.9 Fever, unspecified
CPT/HCPCS: 36415; 85025; 85652; 86141

== ENCOUNTER 2019-10-13 07:37 | Emergency (ER) | payer MEDICARE, OTHER ==
[2019-10-13 10:04] LABS: APPEARANCE,URINE CLEAR; BILIRUBIN,URINE NEGATIVE (NEGATIVE); COLOR,URINE STRAW; GLUCOSE, URINE NEGATIVE (NEGATIVE); KETONES,URINE NEGATIVE (NEGATIVE); PROTEIN,URINE NEGATIVE (NEGATIVE); URINE SPECIFIC GRAVITY 1.009; UROBILINOGEN,URINE NEGATIVE mg/dL (<2.0)
[2019-10-13] MEDS ORDERED: DEXAMETHASONE SOD PHOS INJ 10 MG/1 ML VIAL IM ONE (10:15)
--- NOTE | 2019-10-13 10:18 | ER Document Report ---
ED Medical Screen (RME) - General Chief Complaint: Testicular Pain Stated Complaint: BACK PAIN Time Seen by Provider: 10/13/19 10:04 Primary Care Provider: ALBERT RODGERS MD [Primary Care Provider] - Follow up as needed Notes: Patient is a 74-year-old male who presents to the emergency department with a chief complaint of right lower back pain. He denies any radiation. He has had this pain for the past 2 weeks. He also has testicular pain. He states that he has a history of epididymitis in the past. Exam: Tenderness to right lower back. I have greeted and performed a rapid initial assessment of this patient. A comprehensive ED assessment and evaluation of the patient, analysis of test results and completion of medical decision making process will be conducted by an additional ED providers. TRAVEL OUTSIDE OF THE [place] IN LAST 30 DAYS: No - Related Data Allergies/Adverse Reactions: No Known Allergies Allergy (Verified 10/13/19 07:58) Past Medical History - Social History Chew tobacco use (# tins/day): No Frequency of alcohol use: Occasional Drug Abuse: None - Past Medical History Cardiac Medical History: Reports: Hx Hypercholesterolemia, Hx Hypertension Denies: Hx Heart Attack Pulmonary Medical History: Denies: Hx Asthma, Hx Tuberculosis Neurological Medical History: Denies: Hx Cerebrovascular Accident, Hx Seizures Renal/ Medical History: Denies: Hx Peritoneal Dialysis GI Medical History: Reports: Hx Diverticulitis, Hx Gastroesophageal Reflux Disease. Denies: Hx Crohn's Disease, Hx Hepatitis, Hx Hiatal Hernia, Hx Irritable Bowel, Hx Liver Failure, Hx Pancreatitis, Hx Ulcer Musculoskeltal Medical History: Reports Hx Arthritis, Denies Hx Fibromyalgia, Denies Hx Muscular Dystrophy Traumatic Medical History: Denies: Hx Fractures Infectious Medical History: Denies: Hx Hepatitis Past Surgical History: Reports: Hx Appendectomy, Hx Bowel Surgery - r/t diverticulitis. Denies: Hx Cholecystectomy, Hx Colostomy, Hx Coronary Artery Bypass Graft, Hx Gastric Bypass Surgery, Hx Herniorrhaphy, Hx Open Heart Surgery, Hx Pacemaker, Hx Tonsillectomy - Immunizations Hx Diphtheria, Pertussis, Tetanus Vaccination: Yes Physical Exam - Vital signs Vitals: Temp Pulse Resp BP Pulse Ox 97.6 F 63 16 129/70 H 98 10/13/19 07:40 10/13/19 07:40 10/13/19 07:40 10/13/19 07:40 10/13/19 07:40 Course - Vital Signs Vital signs: Temp Pulse Resp BP Pulse Ox 97.6 F 63 16 129/70 H 98 10/13/19 07:40 10/13/19 07:40 10/13/19 07:40 10/13/19 07:40 10/13/19 07:40 Doctor's Discharge - Discharge Referrals: ALBERT RODGERS MD [Primary Care Provider] - Follow up as needed
[2019-10-13 10:45] LABS: ABSOLUTE EOSINOPHILS # (AUTO) 0.1 10^3/uL (0.0-0.6); ABSOLUTE LYMPHOCYTES (AUTO) 1.6 10^3/uL (0.5-4.7); ABSOLUTE MONOCYTES (AUTO) 0.6 10^3/uL (0.1-1.4); ABSOLUTE NEUT (AUTO) 2.9 10^3/uL (1.7-8.2); BASOPHILS % (AUTO) 0.5 % (0-2); EOSINOPHILS % (AUTO) 2.6 % (0-6); HEMATOCRIT 39.1 % (37.9-51.0); HEMOGLOBIN 13.2 g/dL (13.5-17.0); LYMPHOCYTES % (AUTO) 30.1 % (13-45); MEAN CORPUSCULAR HEMOGLOBIN 28.6 pg (27.0-33.4); MEAN CORPUSCULAR HGB CONC 33.9 g/dL (32.0-36.0); MEAN CORPUSCULAR VOLUME 84 fl (80-97); PLATELET COUNT 197 10^3/uL (150-450); RED BLOOD COUNT 4.64 10^6/uL (4.35-5.55); RED CELL DISTRIBUTION WIDTH 13.6 % (11.5-14.0); SEGMENTED NEUTROPHILS % (AUTO) 55.8 % (42-78); TOTAL CELLS COUNTED % (AUTO) 100 %; WHITE BLOOD COUNT 5.2 10^3/uL (4.0-10.5)
[2019-10-13 11:11] LABS: ALBUMIN 3.9 g/dL (3.5-5.0); ALKALINE PHOSPHATASE 57 U/L (38-126); ANION GAP 6 (5-19); ASPARTATE AMINO TRANSFERASE 26 U/L (17-59); BILIRUBIN,DIRECT 0.2 mg/dL (0.0-0.4); BILIRUBIN,TOTAL 0.6 mg/dL (0.2-1.3); BLOOD UREA NITROGEN 17 mg/dL (7-20); CALCIUM 9.2 mg/dL (8.4-10.2); CARBON DIOXIDE 31 mmol/L (22-30); CHLORIDE 101 mmol/L (98-107); GLUCOSE 91 mg/dL (75-110); POTASSIUM 4.3 mmol/L (3.6-5.0); TOTAL PROTEIN 6.9 g/dL (6.3-8.2)
--- NOTE | 2019-10-13 11:44 | ER Document Report ---
ED General - General Chief Complaint: Testicular Pain Stated Complaint: BACK PAIN Time Seen by Provider: 10/13/19 10:04 Primary Care Provider: ALBERT RODGERS MD [Primary Care Provider] - Follow up as needed TRAVEL OUTSIDE OF THE [place] IN LAST 30 DAYS: No - HPI Notes: 74BM p/t ED ambulatory w/ 2/2 return of R scrotal pain he'd been eval for a few m/a, but also now lower R-sided back pain for the last few wks.He decided to come in today mostly since back pain is somewhat new in last few weeks and has seemed more prominent in last few days and last pm. denies h/o bph or urological procedure, or disorder/delay of descent of either testicle or prior surgery/torsion. denies any h/o std, sx during all these months of his 2 presentations. pt says back pain has been consistent for few wks, can't recall inciting event seems worse if standing longer periods or picking up things. denies any numbness tingling or neuro deficits. no (near) syncope. no dyspnea or chest pain or abd pain or bowel changes/complaings. otherwise on extensive ROS denies any urinary or penile symmptoms, only fullness of testis more on R. denies f/c/s, n/v/d/c at any point even prior to workup few m/a. jun 2019 few m/a: had scrotal u/s, dx w/ "R-sided epididymitis". finished Abx & f/u w/ urology Jul 27 who reassured him had "[healthy] prostate". he says Abx didn't really change cont pain/scrotal heaviness on the R; except that seems maybe more prominent in last 2-3 weeks.. - Related Data Allergies/Adverse Reactions: No Known Allergies Allergy (Verified 10/13/19 07:58) Past Medical History - General Information source: Patient, [facility] - Social History Smoking Status: Unknown if Ever Smoked Chew tobacco use (# tins/day): No Frequency of alcohol use: Occasional Drug Abuse: None Family History: Reviewed & Not Pertinent Patient has suicidal ideation: No Patient has homicidal ideation: No - Past Medical History Cardiac Medical History: Reports: Hx Hypercholesterolemia, Hx Hypertension Denies: Hx Heart Attack Pulmonary Medical History: Denies: Hx Asthma, Hx Tuberculosis Neurological Medical History: Denies: Hx Cerebrovascular Accident, Hx Seizures Renal/ Medical History: Denies: Hx Peritoneal Dialysis GI Medical History: Reports: Hx Diverticulitis, Hx Gastroesophageal Reflux Disease. Denies: Hx Crohn's Disease, Hx Hepatitis, Hx Hiatal Hernia, Hx Irritable Bowel, Hx Liver Failure, Hx Pancreatitis, Hx Ulcer Musculoskeletal Medical History: Reports Hx Arthritis, Denies Hx Fibromyalgia, Denies Hx Muscular Dystrophy Traumatic Medical History: Denies: Hx Fractures Infectious Medical History: Denies: Hx Hepatitis Past Surgical History: Reports: Hx Appendectomy, Hx Bowel Surgery - r/t diverticulitis. Denies: Hx Cholecystectomy, Hx Colostomy, Hx Coronary Artery Bypass Graft, Hx Gastric Bypass Surgery, Hx Herniorrhaphy, Hx Open Heart Surgery, Hx Pacemaker, Hx Tonsillectomy - Immunizations Hx Diphtheria, Pertussis, Tetanus Vaccination: Yes Hx Pneumococcal Vaccination: 08/09/11 Review of Systems - Review of Systems Constitutional: No symptoms reported EENT: No symptoms reported Cardiovascular: No symptoms reported Respiratory: No symptoms reported Gastrointestinal: No symptoms reported Genitourinary: No symptoms reported Male Genitourinary: See HPI, Testicular pain Musculoskeletal: See HPI, Back pain, Muscle pain, Muscle stiffness. denies: Joint pain, Joint swelling, Neck pain, Deformity, Leg swelling, Ankle swelling Skin: No symptoms reported Hematologic/Lymphatic: No symptoms reported Neurological/Psychological: No symptoms reported Physical Exam - Vital signs Vitals: Temp Pulse Resp BP Pulse Ox 97.6 F 63 16 129/70 H 98 10/13/19 07:40 10/13/19 07:40 10/13/19 07:40 10/13/19 07:40 10/13/19 07:40 Interpretation: Normal - General General appearance: Appears well, Alert In distress: None - accompanied by - HEENT Head: Normocephalic, Atraumatic Eyes: Normal Pupils: PERRL - Respiratory Respiratory status: No respiratory distress Chest status: Nontender Breath sounds: Normal Chest palpation: Normal - Cardiovascular Rhythm: Regular Heart sounds: Normal auscultation Murmur: No - Abdominal Inspection: Normal Distension: No distension Bowel sounds: Normal Tenderness: Nontender Organomegaly: No organomegaly - Back Back: Normal, Tender - R paralumbar spinal region w/ assciated paralumbar mm tightness spasm c/t left side.. No: Deformity/step-off, CVA tenderness, Vertebra tenderness, Scoliosis, Wounds - Extremities General upper extremity: Normal inspection, Nontender, Normal color, Normal ROM, Normal temperature General lower extremity: Normal inspection, Nontender, Normal color, Normal ROM, Normal temperature, Normal weight bearing. No: Garrett's sign - Neurological Neuro grossly intact: Yes Cognition: Normal Orientation: AAOx4 Fabián Coma Scale Eye Opening: Spontaneous Fabián Coma Scale Verbal: Oriented [place] Coma Scale Motor: Obeys Commands [place] Coma Scale Total: 15 Speech: Normal Cranial nerves: Normal Cerebellar coordination: Heel-barclay, Finger-nose rhombey. No: Gait ataxia, Truncal ataxia Motor strength normal: LUE, RUE, LLE, RLE Additional motor exam normals: No: Involuntary movements, Pronator drift Sensory: Normal - Psychological Associated symptoms: Normal affect, Normal mood - Skin Skin Temperature: Warm Skin Moisture: Dry Skin Color: Normal Course - Re-evaluation Re-evalutation: 10/13/19 11:45 Reviewed scrotal ultrasound [id number] report as small left varicocele increased echogenic texture. Also reviewed his urinalysis at corresponding time frame/ED visit which did not show any signs of infection though patient had reported to initial screening provider has a history of "epididymitis " 10/13/19 11:45 Ultrasound has been performed of the scrotum today's report still pending and I have yet to examine patient reviewed vital signs which are within normal limits and initial screening note and exam. 10/13/19 11:46 renal function, urinalysis CBC all within normal limits. 10/13/19 17:19 CT of the abdomen pelvis with IV contrast specifically read no IVC or renal vein obstruction compression. No retroperitoneal lymphadenopathy or other gross masses findings. - Vital Signs Vital signs: Temp Pulse Resp BP Pulse Ox 97.8 F 76 18 142/87 H 96 10/13/19 17:23 10/13/19 17:23 10/13/19 17:23 10/13/19 17:23 10/13/19 17:23 - Laboratory Result Diagrams: 10/13/19 10:30 10/13/19 10:30 Laboratory results interpreted by me: 10/13/19 10/13/19 10:30 10:30 Hgb 13.2 L Carbon Dioxide 31 H Discharge - Discharge Clinical Impression: Lumbar paraspinal muscle spasm, Right varicocele Condition: Good Disposition: HOME, SELF-CARE Additional Instructions: Today in the emergency department we did a ultrasound of your scrotum and sunshine ticles. This showed on the right side no signs of epididymitis or problems with the blood flow, only testicular variocele which is dilation of the blood vessels supplying the testis. Your urinalysis today is without signs of infection. When you had the ultrasound 06/2019 this did not show any signs of infection only right testicle variocele which we again see today. I want you to follow-up again with the urologist you have seen after the work-up in June of the right testicle, and ensure he comments on the fact that you have right and not left variocele, and that your CT scan today as well as ultrasound can be accessed and reviewed but there were no acute findings. Specifically asking if there is any need to continue to check your testicle or scrotum regularly or consider any other work-up or reason for the right sided involvement. Please return or be seen more promptly if you develop fever chills sweats significant swelling in the groin or testicle or pain or vomiting or difficulty with urinating. For the low back pain I think this is right lower lumbar muscle spasm that sh ould improve in a few days you can ice few times a day to decrease inflammation, use ibuprofen as prescribed, try to massage and move as tolerated to continue recovery. Make sure you are eating and drinking well if you take ibuprofen to continue to hydrate your kidneys. Prescriptions: Ibuprofen [Ibuprofen Ib] 600 mg PO Q6HP PRN #14 tablet PRN Reason: Referrals: ALBERT RODGERS MD [Primary Care Provider] - Follow up as needed
--- NOTE | 2019-10-13 12:06 | RADIOLOGY REPORT (SQ) ---
EXAM DESCRIPTION: U/S SCROTUM W/DOPPLER COMPLETED DATE/TIME: 10/13/2019 11:54 am REASON FOR STUDY: testicular pain COMPARISON: Scrotal ultrasound 06/14/2019 CT abdomen pelvis 03/02/2019 TECHNIQUE: Static and realtime zamora scale imaging of the scrotum and testes. Selected color Doppler and spectral images recorded to document blood flow. LIMITATIONS: None. FINDINGS: RIGHT: TESTICLE: Normal size, 4.1 x 2.5 x 2.4 cm. Microlithiasis. Normal blood flow. No mass. EPIDIDYMIS: Normal size, 5 mm epididymal cyst. HYDROCELE OR VARICOCELE: Small right hydrocele, moderate right varicocele HERNIA OR EXTRA-TESTICULAR MASS: No. OTHER: No other significant finding. LEFT: TESTICLE: Normal size, 4 x 3 x 2.0 cm. Microlithiasis. Normal blood flow. No mass. EPIDIDYMIS: Normal. HYDROCELE OR VARICOCELE: Small left hydrocele, moderate left varicocele HERNIA OR EXTRA-TESTICULAR MASS: No. OTHER: No other significant finding. IMPRESSION: NO EVIDENCE OF TESTICULAR MASS OR TORSION. Bilateral varicoceles and small scrotal hydroceles are present TECHNICAL DOCUMENTATION: JOB ID: [id number] [employer]- All Rights Reserved Reading location - IP/workstation name: [email or web address]
--- NOTE | 2019-10-13 16:26 | RADIOLOGY REPORT (SQ) ---
EXAM DESCRIPTION: CT ABD/PELVIS WITH IV ONLY COMPLETED DATE/TIME: 10/13/2019 3:05 pm REASON FOR STUDY: R variocele. r/o ivc or R renal vein obstr/comp COMPARISON: CT abdomen pelvis, 03/02/2019 TECHNIQUE: CT scan of the abdomen and pelvis performed using helical scanning technique with dynamic intravenous contrast injection in the portal venous phase. No oral contrast. Images reviewed with l froylan, soft tissue, and bone windows. Reconstructed coronal and sagittal MPR images reviewed. Delayed i mages for evaluation of the urinary system also acquired. All images stored on PACS. All CT scanners at this facility use dose modulation, iterative reconstruction, and/or weight based d osing when appropriate to reduce radiation dose to as low as reasonably achievable (ALARA). [facility]: Dose Right [facility]: CareDose [facility]: Dose Right [facility]: Teradose 4D [facility]: [employer] CONTRAST TYPE AND DOSE: contrast/concentration: Isovue mg/ml; Total Contrast Delivered: 100.0 ml; T otal Saline Delivered: 72.0 ml RENAL FUNCTION: GFR > 60. RADIATION DOSE: CT Rad equipment meets quality standard of care and radiation dose reduction techniq ues were employed. CTDIvol: 7.9 - 8.0 mGy. DLP: 877 mGy-cm.. LIMITATIONS: None. FINDINGS: LOWER CHEST: No significant findings. No nodules or infiltrates. LIVER: Normal size. No masses. No dilated ducts. SPLEEN: Normal size. No focal lesions. PANCREAS: No masses. No significant calcifications. No adjacent inflammation or peripancreatic fluid collections. Pancreatic duct not dilated. GALLBLADDER: No identified stones by CT criteria. No inflammatory changes to suggest cholecystitis. ADRENAL GLANDS: No significant masses or asymmetry. RIGHT KIDNEY AND URETER: No solid masses. No significant calcifications. No hydronephrosis or hyd roureter. LEFT KIDNEY AND URETER: No solid masses. No significant calcifications. No hydronephrosis or hydr oureter. AORTA AND VESSELS: No aneurysm. No dissection. Renal arteries, SMA, celiac without stenosis. Calcifi c atherosclerosis. The renal veins are patent. The IVC is not optimally evaluated on this portal ve nous phase examination however there is no obvious evidence of expansile thrombus or inflammatory str anding. RETROPERITONEUM: No retroperitoneal adenopathy, hemorrhage or masses. BOWEL AND PERITONEAL CAVITY: No masses or inflammatory changes. No free fluid or peritoneal masses. Status post partial right colon resection. Sigmoid diverticulosis. APPENDIX: Surgically absent. PELVIS: No mass. No free fluid. Normal bladder. ABDOMINAL WALL: No masses. No hernias. BONES: No significant or acute findings. OTHER: No other significant finding. IMPRESSION: 1. The renal veins are patent. The IVC is not optimally evaluated on this portal venous phase examination however there is no obvious evidence of expansile thrombus or inflammatory strandi ng. No obvious etiology of right varicocele, such as pelvic mass. 2. Postoperative findings of prior partial right colectomy. 3. Other chronic and incidental findings as above. TECHNICAL DOCUMENTATION: JOB ID: [id number] Quality ID # [id number]: Final reports with documentation of one or more dose reduction techniques (e.g., Au tomated exposure control, adjustment of the mA and/or kV according to patient size, use of iterative reconstruction technique) 2010 [employer]- All Rights Reserved Reading location - IP/workstation name: [email or web address]
[2019-10-13 17:30] VITALS: BP 142/87
== END 2019-10-13 18:07 | disposition home or self-care (01) ==
LOC: ER 07:37
DX: I86.1 Scrotal varices (principal); M62.830 Muscle spasm of back; N50.82 Scrotal pain; E78.00 Pure hypercholesterolemia, unspecified; I10 Essential (primary) hypertension
CPT/HCPCS: 99284; 96374; 36415; 85025; 80053; 81001; 76870; 93976; 74177; J1100

== ENCOUNTER → 2020-01-24 | Outpatient (CLI) | payer MEDICARE, OTHER ==
[2020-01-24 09:00] LABS: ABSOLUTE EOSINOPHILS # (AUTO) 0.2 10^3/uL (0.0-0.6); ABSOLUTE LYMPHOCYTES (AUTO) 1.5 10^3/uL (0.5-4.7); ABSOLUTE MONOCYTES (AUTO) 0.6 10^3/uL (0.1-1.4); ABSOLUTE NEUT (AUTO) 2.9 10^3/uL (1.7-8.2); BASOPHILS % (AUTO) 0.7 % (0-2); EOSINOPHILS % (AUTO) 3.7 % (0-6); HEMATOCRIT 38.4 % (37.9-51.0); HEMOGLOBIN 13.3 g/dL (13.5-17.0); LYMPHOCYTES % (AUTO) 28.5 % (13-45); MEAN CORPUSCULAR HEMOGLOBIN 28.9 pg (27.0-33.4); MEAN CORPUSCULAR HGB CONC 34.5 g/dL (32.0-36.0); MEAN CORPUSCULAR VOLUME 84 fl (80-97); MONOCYTES % (AUTO) 11.7 % (3-13); PLATELET COUNT 196 10^3/uL (150-450); RED CELL DISTRIBUTION WIDTH 12.8 % (11.5-14.0); SEGMENTED NEUTROPHILS % (AUTO) 55.4 % (42-78); TOTAL CELLS COUNTED % (AUTO) 100 %; WHITE BLOOD COUNT 5.2 10^3/uL (4.0-10.5)
[2020-01-24 09:07] LABS: ALBUMIN 4.1 g/dL (3.5-5.0); ALKALINE PHOSPHATASE 54 U/L (38-126); ANION GAP 5 (5-19); ASPARTATE AMINO TRANSFERASE 27 U/L (17-59); BILIRUBIN,TOTAL 0.4 mg/dL (0.2-1.3); BLOOD UREA NITROGEN 14 mg/dL (7-20); CALCIUM 8.9 mg/dL (8.4-10.2); CARBON DIOXIDE 28 mmol/L (22-30); CHLORIDE 105 mmol/L (98-107); CHOLESTEROL 186.77 mg/dL (0-200); GLUCOSE 100 mg/dL (75-110); POTASSIUM 4.2 mmol/L (3.6-5.0); TOTAL PROTEIN 6.6 g/dL (6.3-8.2); TRIGLYCERIDES 206 mg/dL (<150)
[2020-01-24 09:18] LABS: DIRECT LDL 81 mg/dL (<100)
[2020-01-24 09:41] LABS: VLDL CHOLESTEROL 41.2 mg/dL (10-31)
== END ==
LOC: OD 07:46
PROVIDERS: ATTEND Internal Medicine
DX: I10 Essential (primary) hypertension (principal); Z12.5 Encounter for screening for malignant neoplasm of prostate; R35.0 Frequency of micturition; R53.83 Other fatigue; R39.15 Urgency of urination; Z79.899 Other long term (current) drug therapy
CPT/HCPCS: 36415; 80053; 80061; 84153; 85025

== ENCOUNTER → 2020-01-28 | Outpatient (CLI) | payer MEDICARE, OTHER ==
[2020-01-28 12:15] LABS: HEMATOCRIT 38.1 % (37.9-51.0); HEMOGLOBIN 13.1 g/dL (13.5-17.0); MEAN CORPUSCULAR HEMOGLOBIN 29.1 pg (27.0-33.4); MEAN CORPUSCULAR HGB CONC 34.3 g/dL (32.0-36.0); MEAN CORPUSCULAR VOLUME 85 fl (80-97); PLATELET COUNT 205 10^3/uL (150-450); RED BLOOD COUNT 4.48 10^6/uL (4.35-5.55); RED CELL DISTRIBUTION WIDTH 12.9 % (11.5-14.0); WHITE BLOOD COUNT 4.6 10^3/uL (4.0-10.5)
== END ==
LOC: OD 10:46
PROVIDERS: ATTEND Internal Medicine Gastroenterology
DX: K92.1 Melena (principal)
CPT/HCPCS: 36415; 82728; 85027

== ENCOUNTER 2020-03-09 08:27 | Emergency (ER) | payer MEDICARE, OTHER ==
[2020-03-09 09:09] LABS: ABSOLUTE EOSINOPHILS # (AUTO) 0.2 10^3/uL (0.0-0.6); ABSOLUTE LYMPHOCYTES (AUTO) 1.2 10^3/uL (0.5-4.7); ABSOLUTE MONOCYTES (AUTO) 0.5 10^3/uL (0.1-1.4); ABSOLUTE NEUT (AUTO) 3.7 10^3/uL (1.7-8.2); BASOPHILS % (AUTO) 0.5 % (0-2); EOSINOPHILS % (AUTO) 3.2 % (0-6); HEMATOCRIT 38.8 % (37.9-51.0); HEMOGLOBIN 13.4 g/dL (13.5-17.0); LYMPHOCYTES % (AUTO) 21.4 % (13-45); MEAN CORPUSCULAR HEMOGLOBIN 29.1 pg (27.0-33.4); MEAN CORPUSCULAR HGB CONC 34.6 g/dL (32.0-36.0); MEAN CORPUSCULAR VOLUME 84 fl (80-97); MONOCYTES % (AUTO) 9.3 % (3-13); PLATELET COUNT 192 10^3/uL (150-450); RED BLOOD COUNT 4.61 10^6/uL (4.35-5.55); RED CELL DISTRIBUTION WIDTH 13.1 % (11.5-14.0); SEGMENTED NEUTROPHILS % (AUTO) 65.6 % (42-78); TOTAL CELLS COUNTED % (AUTO) 100 %; WHITE BLOOD COUNT 5.6 10^3/uL (4.0-10.5)
[2020-03-09 09:14] LABS: APPEARANCE,URINE CLEAR; BILIRUBIN,URINE NEGATIVE (NEGATIVE); COLOR,URINE STRAW; GLUCOSE, URINE NEGATIVE (NEGATIVE); KETONES,URINE NEGATIVE (NEGATIVE); LEUKOCYTE ESTERASE,URINE NEGATIVE (NEGATIVE); NITRITE,URINE NEGATIVE (NEGATIVE); PROTEIN,URINE NEGATIVE (NEGATIVE); URINE SPECIFIC GRAVITY 1.008; UROBILINOGEN,URINE NEGATIVE mg/dL (<2.0)
[2020-03-09 09:30] LABS: ALBUMIN 4.3 g/dL (3.5-5.0); ALKALINE PHOSPHATASE 69 U/L (38-126); ANION GAP 7 (5-19); ASPARTATE AMINO TRANSFERASE 25 U/L (17-59); BILIRUBIN,TOTAL 0.5 mg/dL (0.2-1.3); BLOOD UREA NITROGEN 15 mg/dL (7-20); CALCIUM 9.2 mg/dL (8.4-10.2); CARBON DIOXIDE 28 mmol/L (22-30); CHLORIDE 102 mmol/L (98-107); GLUCOSE 96 mg/dL (75-110); POTASSIUM 3.9 mmol/L (3.6-5.0); TOTAL PROTEIN 6.9 g/dL (6.3-8.2)
[2020-03-09] MEDS ORDERED: ACETAMINOPHEN 325 MG TABLET PO ONE (09:50)
--- NOTE | 2020-03-09 09:50 | ER Document Report ---
ED GI/ - General Chief Complaint: Abdominal Pain Stated Complaint: FLANK PAIN Time Seen by Provider: 03/09/20 09:46 Primary Care Provider: ALBERT RODGERS MD [Primary Care Provider] - Follow up as needed Mode of Arrival: Ambulatory Information source: Patient Notes: 74-year-old male past medical history significant for hypertension, hyperlipidemia, diverticulitis presents to the emergency room complaining of worsening left lower quadrant pain that radiates to the left flank area for the past week. Denies any nausea, vomiting, no diarrhea, no urinary symptoms, normal bowel movement this morning. Has been taking Metamucil without relief of his pain. Drove self to the ER. No recent travel. No COVID-19 exposure. TRAVEL OUTSIDE OF THE [place] IN LAST 30 DAYS: No - Related Data Allergies/Adverse Reactions: No Known Allergies Allergy (Verified 10/13/19 07:58) Past Medical History - General Information source: Patient - Social History Smoking Status: Never Smoker Frequency of alcohol use: Occasional Drug Abuse: None Lives with: Family Family History: Reviewed & Not Pertinent Patient has homicidal ideation: No - Past Medical History Cardiac Medical History: Reports: Hx Hypercholesterolemia, Hx Hypertension Denies: Hx Heart Attack Pulmonary Medical History: Denies: Hx Asthma, Hx Tuberculosis Neurological Medical History: Denies: Hx Cerebrovascular Accident, Hx Seizures Renal/ Medical History: Denies: Hx Peritoneal Dialysis GI Medical History: Reports: Hx Diverticulitis, Hx Gastroesophageal Reflux Disea se. Denies: Hx Crohn's Disease, Hx Hepatitis, Hx Hiatal Hernia, Hx Irritable Bowel, Hx Liver Failure, Hx Pancreatitis, Hx Ulcer Musculoskeletal Medical History: Reports Hx Arthritis, Denies Hx Fibromyalgia, Denies Hx Muscular Dystrophy Traumatic Medical History: Denies: Hx Fractures Infectious Medical History: Denies: Hx Hepatitis Past Surgical History: Reports: Hx Appendectomy, Hx Bowel Surgery - r/t diverticulitis. Denies: Hx Cholecystectomy, Hx Colostomy, Hx Coronary Artery Bypass Graft, Hx Gastric Bypass Surgery, Hx Herniorrhaphy, Hx Open Heart Surgery, Hx Pacemaker, Hx Tonsillectomy - Immunizations Hx Diphtheria, Pertussis, Tetanus Vaccination: Yes Hx Pneumococcal Vaccination: 08/09/11 Review of Systems - Review of Systems Constitutional: No symptoms reported Cardiovascular: No symptoms reported Respiratory: No symptoms reported Gastrointestinal: Abdominal pain, Last bowel movement - Today. denies: Nausea, Vomiting, Constipation, Blood streaked bowels Genitourinary: No symptoms reported Skin: No symptoms reported Neurological/Psychological: No symptoms reported -: Yes All other systems reviewed and negative Physical Exam - Vital signs Vitals: Temp Pulse Resp BP Pulse Ox 97.4 F 72 16 141/68 H 98 03/09/20 08:30 03/09/20 08:30 03/09/20 08:30 03/09/20 08:30 03/09/20 08:30 - General General appearance: Appears well, Alert In distress: Mild - Respiratory Respiratory status: No respiratory distress Chest status: Nontender Breath sounds: Normal Chest palpation: Normal - Cardiovascular Rhythm: Regular Heart sounds: Normal auscultation Murmur: No - Abdominal Inspection: Normal Distension: No distension Bowel sounds: Normal Tenderness: Tender - Left lower quadrant. No: Guarding, Rebound Organomegaly: No organomegaly - Back Back: Normal. No: CVA tenderness - Neurological Neuro grossly intact: Yes Cognition: Normal Orientation: AAOx4 [place] Coma Scale Eye Opening: Spontaneous Fabián Coma Scale Verbal: Oriented [place] Coma Scale Motor: Obeys Commands Fabián Coma Scale Total: 15 Speech: Normal Motor strength normal: LUE, RUE, LLE, RLE Sensory: Normal - Skin Skin Temperature: Warm Skin Moisture: Dry Skin Color: Normal Course - Re-evaluation Re-evalutation: 03/09/20 11:43 Patient is resting comfortably he is currently pain-free. He is afebrile, he is able to tolerate p.o. fluids. Reviewed all test results with patient. Will be discharged home on p.o. Cipro and p.o. Flagyl, outpatient follow-up with primary care physician for recheck in 2 days. Patient was given strict return to the emergency room guidelines. Return for any new or worsening symptoms. All questions were answered. Patient verbalized understanding and agrees with plan of care. - Vital Signs Vital signs: Temp Pulse Resp BP Pulse Ox 98.2 F 66 18 131/78 H 99 03/09/20 12:02 03/09/20 12:02 03/09/20 12:02 03/09/20 12:02 03/09/20 12:02 - Laboratory Result Diagrams: 03/09/20 08:50 03/09/20 08:50 Laboratory results interpreted by me: 03/09/20 03/09/20 08:50 08:50 Hgb 13.4 L Sodium 136.5 L - Diagnostic Test Radiology reviewed: Reports reviewed Discharge - Discharge Clinical Impression: Acute diverticulitis Diverticulitis Qualifiers: Diverticulitis site: unspecified part of intestinal tract Diverticulitis bleeding: without bleeding Diverticulitis complication: without perforation or abscess Qualified Code(s): K57.92 - Diverticulitis of intestine, part unspecified, without perforation or abscess without bleeding Condition: Stable Disposition: HOME, SELF-CARE Instructions: Ciprofloxacin ([facility]), Diverticulitis ([facility]) Additional Instructions: Clear liquid diet for the next 24 hours. Medications as prescribed. Call your primary care physician for follow-up appointment in 2 days. Return for any new or worsening symptoms. Prescriptions: Ciprofloxacin HCl [Cipro 500 mg Tablet] 500 mg PO BID 7 Days #14 tablet Metronidazole [Flagyl 500 mg Tablet] 500 mg PO Q6H #28 tablet Referrals: ALBERT RODGERS MD [Primary Care Provider] - Follow up as needed
--- NOTE | 2020-03-09 11:33 | RADIOLOGY REPORT (SQ) ---
EXAM DESCRIPTION: CT ABD/PELVIS WITH IV ONLY IMAGES COMPLETED DATE/TIME: 03/09/2020 11:06 am REASON FOR STUDY: abdominal pain COMPARISON: CT of the abdomen pelvis with contrast from 10/13/2019. TECHNIQUE: CT scan of the abdomen and pelvis performed using helical scanning technique with dynamic intravenous contrast injection. No oral contrast. Images reviewed with lung, soft tissue, and bone windows. Reconstructed coronal and sagittal MPR images reviewed. Delayed images for evaluation of the urinary system also acquired. All images stored on PACS. All CT scanners at this facility use dose modulation, iterative reconstruction, and/or weight based d osing when appropriate to reduce radiation dose to as low as reasonably achievable (ALARA). [facility]: Dose Right [facility]: CareDose [facility]: Dose Right [facility]: Teradose 4D [facility]: [employer] CONTRAST TYPE AND DOSE: Contrast/concentration: Isovue 350.00 mg/ml; Total Contrast Delivered: 99.0 ml; Total Saline Delivered: 70.0 ml RENAL FUNCTION: Creatinine 1.01 milligrams/deciliter. RADIATION DOSE: CT Rad equipment meets quality standard of care and radiation dose reduction techniq ues were employed. CTDIvol: 10.1 - 14.2 mGy. DLP: 1375 mGy-cm. LIMITATIONS: None. FINDINGS: LOWER CHEST: Cardiomegaly and atherosclerotic calcification of the coronary arteries. The re is no acute findings. LIVER: The relative hypoattenuation hepatic parenchyma compared to the splenic parenchyma on the port al venous phase is suggestive on the line hepatic steatosis. The portal veins are patent. There is no hepatic mass. SPLEEN: No splenomegaly or splenic mass PANCREAS: No abnormality of the pancreas. GALLBLADDER: The gallbladder is contracted. ADRENAL GLANDS: No mass or asymmetry. RIGHT KIDNEY AND URETER: Stable subcentimeter hypodense lesion in the anteromedial cortex of the uppe r pole of the kidney. There is no solid mass, hydronephrosis, nephrolithiasis hydroureter or uretero lithiasis LEFT KIDNEY AND URETER: Stable hypodense lesion in the lateral cortex of the interpolar portion of t he kidney. There is no solid mass, hydronephrosis, nephrolithiasis, hydroureter or ureterolithiasis. AORTA AND VESSELS: No aneurysm or dissection of the abdominal aorta. RETROPERITONEUM: No retroperitoneal adenopathy, hemorrhage or mass. BOWEL AND PERITONEAL CAVITY: Short segment of asymmetric bowel wall thickening in the distal descendi ng colon (image 44 of series 3) centered around a cluster diverticula and associated with stranding o f the pericolonic fat and thickening of the adjacent peritoneal reflections. The patient is status p ost partial right hemicolectomy. There is no bowel obstruction, extraluminal abscess, pneumatosis, f ree intraperitoneal fluid, or free intraperitoneal gas. APPENDIX: Surgically absent. PELVIS: The prostate gland is enlarged. The urinary bladder is partially distended. ABDOMINAL WALL: Postoperative findings in the ventral abdominal wall. There is no hernia or mass BONES: Degenerative spondylosis and facet arthropathy of the lumbar spine with grade 1 anterolisthesi s of L4 relative to L5 and grade 1 retrolisthesis of L5 relative to S1. OTHER: No other finding. IMPRESSION: Findings as above consistent with an acute diverticulitis of the distal descending colon (image 44 of series 3). TECHNICAL DOCUMENTATION: JOB ID: [id number] Quality ID # [id number]: Final reports with documentation of one or more dose reduction techniques (e.g., Au tomated exposure control, adjustment of the mA and/or kV according to patient size, use of iterative reconstruction technique) 2010 [employer]- All Rights Reserved Reading location - IP/workstation name: [email or web address]
[2020-03-09 12:04] VITALS: BP 131/78
== END 2020-03-09 12:04 | disposition home or self-care (01) ==
LOC: ER 08:27
DX: K57.92 Diverticulitis of intestine, part unspecified, without perforation or abscess without bleeding (principal); R10.32 Left lower quadrant pain; R10.814 Left lower quadrant abdominal tenderness; I10 Essential (primary) hypertension
CPT/HCPCS: 99284; 36415; 83690; 85025; 80053; 81001; 74177; A9270

== ENCOUNTER → 2020-04-27 | Outpatient (CLI) | payer MEDICARE, OTHER ==
[2020-04-27 10:11] LABS: ABSOLUTE EOSINOPHILS # (AUTO) 0.1 10^3/uL (0.0-0.6); ABSOLUTE LYMPHOCYTES (AUTO) 1.5 10^3/uL (0.5-4.7); ABSOLUTE MONOCYTES (AUTO) 0.5 10^3/uL (0.1-1.4); ABSOLUTE NEUT (AUTO) 2.7 10^3/uL (1.7-8.2); BASOPHILS % (AUTO) 0.5 % (0-2); EOSINOPHILS % (AUTO) 2.8 % (0-6); HEMATOCRIT 39.8 % (37.9-51.0); HEMOGLOBIN 13.5 g/dL (13.5-17.0); LYMPHOCYTES % (AUTO) 31.1 % (13-45); MEAN CORPUSCULAR HEMOGLOBIN 28.6 pg (27.0-33.4); MEAN CORPUSCULAR HGB CONC 33.8 g/dL (32.0-36.0); MEAN CORPUSCULAR VOLUME 85 fl (80-97); MONOCYTES % (AUTO) 9.9 % (3-13); PLATELET COUNT 191 10^3/uL (150-450); RED BLOOD COUNT 4.72 10^6/uL (4.35-5.55); RED CELL DISTRIBUTION WIDTH 13.2 % (11.5-14.0); SEGMENTED NEUTROPHILS % (AUTO) 55.7 % (42-78); TOTAL CELLS COUNTED % (AUTO) 100 %; WHITE BLOOD COUNT 4.8 10^3/uL (4.0-10.5)
[2020-04-27 10:34] LABS: ANION GAP 7 (5-19); BLOOD UREA NITROGEN 16 mg/dL (7-20); CALCIUM 9.5 mg/dL (8.4-10.2); CARBON DIOXIDE 27 mmol/L (22-30); CHLORIDE 102 mmol/L (98-107); GLUCOSE 107 mg/dL (75-110); POTASSIUM 4.2 mmol/L (3.6-5.0)
--- NOTE | 2020-04-27 13:21 | RADIOLOGY REPORT (SQ) ---
EXAM DESCRIPTION: CT ABD/PELVIS WITH IV ORAL IMAGES COMPLETED DATE/TIME: 04/27/2020 12:40 pm REASON FOR STUDY: K57.32 DVTRCLI OF LG INT W/O PERFORATION OR ABSCESS W/O BLEEDING K57.32 DVTRCLI O F LG INT W/O PERFORATION OR ABSCESS W/O BLEE R10.32 LEFT LOWER QUADRANT PAIN COMPARISON: 05/29/2018 TECHNIQUE: CT scan of the abdomen and pelvis performed using helical scanning technique with dynamic intravenous contrast injection. oral contrast. Images reviewed with lung, soft tissue, and bone win dows. Reconstructed coronal and sagittal MPR images reviewed. Delayed images for evaluation of the ur inary system also acquired. All images stored on PACS. All CT scanners at this facility use dose modulation, iterative reconstruction, and/or weight based d osing when appropriate to reduce radiation dose to as low as reasonably achievable (ALARA). [facility]: Dose Right [facility]: CareDose [facility]: Dose Right [facility]: Teradose 4D [facility]: [employer] CONTRAST TYPE AND DOSE: contrast/concentration: Isovue 350.00 mmol/ml; Total Contrast Delivered: 100 .0 ml; Total Saline Delivered: 71.9 ml RENAL FUNCTION: BUN 16 creatinine 1 RADIATION DOSE: CT Rad equipment meets quality standard of care and radiation dose reduction techniq ues were employed. CTDIvol: 9.2 - 9.2 mGy. DLP: 989 mGy-cm.. LIMITATIONS: None. FINDINGS: LOWER CHEST: No significant findings. No nodules or infiltrates. LIVER: Normal size. No masses. No dilated ducts. SPLEEN: Normal size. No focal lesions. PANCREAS: No masses. No significant calcifications. No adjacent inflammation or peripancreatic fluid collections. Pancreatic duct not dilated. GALLBLADDER: No identified stones by CT criteria. No inflammatory changes to suggest cholecystitis. ADRENAL GLANDS: No significant masses or asymmetry. RIGHT KIDNEY AND URETER: No solid masses. No significant calcifications. No hydronephrosis or hyd roureter. LEFT KIDNEY AND URETER: No solid masses. No significant calcifications. No hydronephrosis or hydr oureter. AORTA AND VESSELS: No aneurysm. No dissection. Renal arteries, SMA, celiac without stenosis. RETROPERITONEUM: No retroperitoneal adenopathy, hemorrhage or masses. BOWEL AND PERITONEAL CAVITY: There is descending and sigmoid diverticulosis. A 2 cm segment of the d escending colon shows some wall thickening. The appearance changes between the initial and delayed s equences. No significant stranding. APPENDIX: Not identified PELVIS: No mass. No free fluid. Normal bladder. ABDOMINAL WALL: No masses. No hernias. BONES: No significant acute finding. OTHER: No other significant finding. IMPRESSION: Diverticulosis coli. There is a small segment of the descending colon that shows some w all thickening, but no other evidence of diverticulitis. TECHNICAL DOCUMENTATION: JOB ID: [id number] Quality ID # [id number]: Final reports with documentation of one or more dose reduction techniques (e.g., Au tomated exposure control, adjustment of the mA and/or kV according to patient size, use of iterative reconstruction technique) 2010 [employer]- All Rights Reserved Reading location - IP/workstation name: [email or web address]
== END ==
LOC: RAD 09:45
PROVIDERS: ATTEND Internal Medicine Gastroenterology
DX: K57.32 Diverticulitis of large intestine without perforation or abscess without bleeding (principal); R10.32 Left lower quadrant pain
CPT/HCPCS: 36415; 74177; 80048; 85025

== ENCOUNTER 2020-04-30 18:28 | Observation (INO) | payer MEDICARE, OTHER ==
[2020-04-30 18:54] LABS: ABSOLUTE EOSINOPHILS # (AUTO) 0.1 10^3/uL (0.0-0.6); ABSOLUTE MONOCYTES (AUTO) 0.6 10^3/uL (0.1-1.4); BASOPHILS % (AUTO) 0.6 % (0-2); EOSINOPHILS % (AUTO) 2.5 % (0-6); HEMATOCRIT 37.6 % (37.9-51.0); HEMOGLOBIN 13.1 g/dL (13.5-17.0); LYMPHOCYTES % (AUTO) 34.9 % (13-45); MEAN CORPUSCULAR HGB CONC 34.8 g/dL (32.0-36.0); MEAN CORPUSCULAR VOLUME 83 fl (80-97); MONOCYTES % (AUTO) 10.5 % (3-13); PLATELET COUNT 201 10^3/uL (150-450); RED CELL DISTRIBUTION WIDTH 12.9 % (11.5-14.0); SEGMENTED NEUTROPHILS % (AUTO) 51.5 % (42-78); TOTAL CELLS COUNTED % (AUTO) 100 %; WHITE BLOOD COUNT 5.9 10^3/uL (4.0-10.5)
[2020-04-30 19:12] LABS: ALBUMIN 4.5 g/dL (3.5-5.0); ALKALINE PHOSPHATASE 61 U/L (38-126); ANION GAP 6 (5-19); ASPARTATE AMINO TRANSFERASE 32 U/L (17-59); BILIRUBIN,TOTAL 0.6 mg/dL (0.2-1.3); BLOOD UREA NITROGEN 13 mg/dL (7-20); CALCIUM 9.4 mg/dL (8.4-10.2); CARBON DIOXIDE 27 mmol/L (22-30); CHLORIDE 102 mmol/L (98-107); CREATINE KINASE 344 U/L (55-170); GLUCOSE 110 mg/dL (75-110); POTASSIUM 3.7 mmol/L (3.6-5.0); TOTAL PROTEIN 7.3 g/dL (6.3-8.2)
--- NOTE | 2020-04-30 19:19 | ER Document Report ---
ED General - General Chief Complaint: Chest Pain Stated Complaint: CHEST PAIN Time Seen by Provider: 04/30/20 19:01 Primary Care Provider: KARINE OTTO MD [Primary Care Provider] - Follow up as needed TRAVEL OUTSIDE OF THE [place] IN LAST 30 DAYS: No - HPI Notes: Chief complaint: Chest pain History of present illness: 75-year-old male presents for evaluation of chest pain. This gentleman was seen with a similar presentation here about 1 year ago with negative EKG and troponins in the emergency department and was referred to Dr. Wadsworth from cardiology for a stress test. He was told at that time that he had probably had "a light heart attack" and has been managed medically since then taking aspirin daily. Within the last week he started having some anterior chest discomfort intermittently again which is nonexertional. He was seen 3 days ago in the office by Dr. Wadsworth who prescribed nitroglycerin for him and has him scheduled to have a stress echo test done tomorrow. Patient says that he exerted himself heavily this morning cutting grass and was asymptomatic during that time but later this afternoon experienced an episode of left anterior chest pain while at rest. He described this as a burning pressure sensation with some radiation into his left shoulder. This subsequently resolved spontaneously. He apparently did not take any nitroglycerin. He notes that he has taken his aspirin tablet today. He did not experience any nausea, vomiting, dyspnea nor diaphoresis. He feels well at present. Patient has a history of hypertension. Family history positive for CAD. History of hyperlipidemia. No history of diabetes. No personal or familial history of thromboembolic disease. HEART Score: HISTORY 2 ECG 0 AGE 3 RISK FACTORS 2 TROPONIN >3x=2 TOTAL:6 If HEART score is < or = 3 AND both tronponin measurments are normal, the 30 day risk of a major adverse cardiac event (all-cause mortality, myocardia infarction or need for coronary revscularization) is < 1% (Sensitivity 100%, NPV 100%). PERC SCORE (HADCLOTS) H no hormone administration A Age>50 D NO DVT/PE previously C no hemoptysis L no leg swelling unilaterally O O2 sat greater than 95% T no tachycardia S no surgery/Trauma recently - Related Data Allergies/Adverse Reactions: No Known Allergies Allergy (Verified 04/30/20 19:23) Past Medical History - General Information source: Patient, Relative, [facility] Records - Social History Smoking Status: Never Smoker Frequency of alcohol use: None Drug Abuse: None Family History: Reviewed & Not Pertinent - Past Medical History Cardiac Medical History: Reports: Hx Coronary Artery Disease, Hx Hypercholesterolemia, Hx Hypertension Denies: Hx Heart Attack Pulmonary Medical History: Denies: Hx Asthma, Hx Tuberculosis Neurological Medical History: Denies: Hx Cerebrovascular Accident, Hx Seizures Renal/ Medical History: Denies: Hx Peritoneal Dialysis GI Medical History: Reports: Hx Diverticulitis, Hx Gastroesophageal Reflux Disease. Denies: Hx Crohn's Disease, Hx Hepatitis, Hx Hiatal Hernia, Hx Irritable Bowel, Hx Liver Failure, Hx Pancreatitis, Hx Ulcer Musculoskeletal Medical History: Reports Hx Arthritis, Denies Hx Fibromyalgia, Denies Hx Muscular Dystrophy Traumatic Medical History: Denies: Hx Fractures Infectious Medical History: Denies: Hx Hepatitis Past Surgical History: Reports: Hx Appendectomy, Hx Bowel Surgery - r/t diverticulitis. Denies: Hx Cholecystectomy, Hx Colostomy, Hx Coronary Artery Bypass Graft, Hx Gastric Bypass Surgery, Hx Herniorrhaphy, Hx Open Heart Surgery, Hx Pacemaker, Hx Tonsillectomy - Immunizations Hx Diphtheria, Pertussis, Tetanus Vaccination: Yes Hx Pneumococcal Vaccination: 08/09/11 Review of Systems - Review of Systems Notes: Constitutional: Negative for fever. HENT: Negative for sore throat. Eyes: Negative for visual changes. Cardiovascular: As per HPI. Respiratory: Negative for shortness of breath. Gastrointestinal: Negative for abdominal pain, vomiting or diarrhea. Genitourinary: Negative for dysuria. Musculoskeletal: Negative for back pain. Skin: Negative for rash. Neurological: Negative for headaches, weakness or numbness. 10 point ROS negative except as marked above and in HPI. Physical Exam - Vital signs Vitals: Resp Pulse Ox 16 100 04/30/20 19:06 04/30/20 19:06 - Notes Notes: GENERAL: Male patient approximately stated age appearing in no acute distress. SKIN: Good turgor no rashes. HEAD: Normocephalic atraumatic. EYES: PERRLA. EOMI. Conjunctivae and sclerae clear. EARS: CANALS AND TMS CLEAR. NOSE: CLEAR. MOUTH: Moist mucosa. Good dentition. No stridor or edema. No drooling. NECK: Supple. No masses or thyromegaly. No adenopathy. Carotids 2+ without bruits. No JVD. BACK: Symmetrical without tenderness. CHEST: Respirations unlabored. Breath sounds clear and symmetrical. HEART: Regular rhythm. No murmur gallop or rub. ABDOMEN: Soft nontender without masses, organomegaly or rebound. Bowel sounds normally active. No bruits. GENITALIA: Deferred. EXTREMITIES: No edema. No calf tenderness. Cap refill less than 1.5 seconds. Dorsalis pedis and posterior tibial pulses 3+ and symmetrical. NEUROLOGICAL: GCS 15. Alert and oriented x3. Normal gait. Fluent speech. Pest Control Applicator nial nerves II through XII intact. Sensorimotor and cerebellar normal. Normal tone. PSYCHIATRIC: Appropriate affect. Course - Re-evaluation Re-evalutation: 04/30/20 20:04 Patient remains pain-free. His d-dimer and initial troponin are both negative. His EKG showed no acute changes. Findings were discussed with his snapper on Dr. Wadsworth by telephone. He feels that patient should be admitted by the hospitalist for telemetry observation and he was seen for consultation in the morning. - Vital Signs Vital signs: Temp Pulse Resp BP Pulse Ox 98.4 F 68 15 148/91 H 98 04/30/20 19:21 04/30/20 19:21 04/30/20 19:21 04/30/20 19:21 04/30/20 19:21 - Laboratory Result Diagrams: 04/30/20 18:35 04/30/20 18:35 Laboratory results interpreted by me: 04/30/20 04/30/20 18:35 18:35 Hgb 13.1 L Hct 37.6 L Sodium 134.8 L Creatine Kinase 344 H - EKG Interpretation by Me Additional EKG results interpreted by me: 04/30/20 19:23 Twelve-lead EKG from 1833 hrs. reviewed contemporaneously by me demonstrating normal sinus rhythm with a rate of 69 and a normal QRS axis of +30 degrees. Intervals are normal. There are no acute ST/T wave changes present. Discharge - Discharge Clinical Impression: Chest pain Condition: Stable Disposition: ADMITTED OBSERVATION Admitting Provider: Casey (Hospitalist) Unit Admitted: Telemetry Referrals: KARINE OTTO MD [Primary Care Provider] - Follow up as needed
[2020-04-30 19:24] LABS: CREATINE KINASE MB 3.65 ng/mL (<4.55)
[2020-04-30 19:25] LABS: TROPONIN I < 0.012 ng/mL
--- NOTE | 2020-04-30 20:26 | PDOC H&P ---
History of Present Illness Admission Date/PCP: 04/30/2020 20:10 Dr. Cerna Patient complains of: Chest pain History of Present Illness: SULAIMAN HENRY is a 75 year old male who presented to the emergency room with a 5 day history of chest pain. He admits sudden onset, constant, variably intense burning pressure in his anterior left chest with numbness and tingling radiating to his left arm all the way to his fingers, lasting about 15 minutes and occurring while he was at rest and resolving spontaneously. He denies associated or accompanying signs and symptoms. He was seen by his clerk operator Dr. Wadsworth 2 days ago and was given a prescription for nitroglycerin sublingual tablets and transdermal patches to take in addition to his daily aspirin. He obtained his prescription and discontinued use of the transdermal patches due to headache, but did not take the sublingual tablets as instructed when his chest pain occurred today. He admits prior similar episodes for which he began seeing Dr. Wadsworth and was treated with daily aspirin 1 year ago. He admits a history of well-controlled hypertension and hyperlipidemia, with a family history of coronary artery disease. He has not identified any aggravating or ameliorating factors for his chest pain. In the emergency room he was found to have negative cardiac enzymes and an EKG which showed no evidence of myocardial ischemia or injury. The emergency room physician contacted Dr. Wadsworth and found that he had scheduled the patient for a stress echo to be performed tomorrow and suggested the patient should be admit nela for observation status on telemetry and be seen by him in the morning in consultation. Patient was subsequently admitted to observation status on telemetry. Past Medical History Cardiac Medical History: Reports: Coronary Artery Disease, Hyperlipidema, Hyp ertension Denies: Atrial Fibrillation, Congestive Heart Failure, DVT, Myocardial Infarction, Peripheral Vascular Disease, Pulmonary Embolism Pulmonary Medical History: Denies: Asthma, Chronic Obstructive Pulmonary Disease (COPD), Tuberculosis EENT Medical History: Denies: Cataracts, Ears - Hearing aids Neurological Medical History: Denies: Hemorrhagic CVA, Ischemic CVA, Seizures Endocrine Medical History: Denies: Diabetes Mellitus Type 1, Diabetes Mellitus Type 2, Hyperthyroidism, Hypothyroidism Renal/ Medical History: Denies: Chronic Kidney Disease, Nephrolithiasis Malignancy Medical History: Reports: None GI Medical History: Reports: Diverticulitis, Gastroesophageal Reflux Disease, Other - Internal hemorrhoids Denies: Cirrhosis, Crohn's Disease, Hepatitis, Hiatal Hernia, Ulcerative Colitis Musculoskeltal Medical History: Reports: Arthritis, Other - Chronic back pain Denies: Fibromyalgia Skin Medical History: Denies: Eczema, Psoriasis Psychiatric Medical History: Denies: Alcohol Dependency, Substance Abuse, Tobacco Dependency Traumatic Medical History: Reports: None Hematology: Denies: Anemia, Bleeding Tendencies Infectious Medical History: Reports: None Past Surgical History Past Surgical History: Reports: Appendectomy, Other - Colectomy: 2009, EGD and colonoscopy Social History Information Source: Patient Lives with: Spouse/Significant other Smoking Status: Never Smoker Electronic Cigarette use?: No Frequency of Alcohol Use: None Hx Recreational Drug Use: No Drugs: None Hx Prescription Drug Abuse: No - Advance Directive Resuscitation Status: Full Code Surrogate healthcare decision maker:: Karin Henry Family History Family History: CAD - Father, DM - Siblings Parental Family History Reviewed: Yes Children Family History Reviewed: No Sibling(s) Family History Reviewed.: Yes Medication/Allergy Home Medications: Amlodipine Besylate [Norvasc 2.5 mg Tablet] 2.5 mg PO DAILY 10/13/19 [place]-3/Dha/Epa/Fish Oil [Fish Oil 500 mg Softgel] 2 each PO DAILY 10/13/19 Pravastatin Sodium 40 mg PO QHS 10/13/19 Amoxicillin/Potassium Clav [Augmentin 875-125 Tablet] 1 tab PO DAILY 04/30/20 Aspirin [Ecotrin 81 mg EC Tablet] 81 mg PO DAILY 04/30/20 Ibuprofen [Ibu] 800 mg PO BID 04/30/20 Lansoprazole 30 mg PO DAILY 04/30/20 Nitroglycerin [Nitro-Dur 10 mg (0.4MG/Hr) Transdermal Patch] 1 patch TD QAM 04/30/20 Allergies/Adverse Reactions: No Known Allergies Allergy (Verified 04/30/20 19:23) Review of Systems Constitutional: ABSENT: chills, fever(s) Eyes: ABSENT: visual disturbances, other - Eye pain Ears: ABSENT: hearing changes, other - Ear pain Nose, Mouth, and Throat: ABSENT: headache(s), sore throat Cardiovascular: PRESENT: as per HPI, chest pain. ABSENT: dyspnea on exertion, edema, orthropnea, palpitations Respiratory: ABSENT: cough, dyspnea Gastrointestinal: ABSENT: abdominal pain, constipation, diarrhea, nausea, vomiting Genitourinary: ABSENT: dysuria, hematuria Musculoskeletal: ABSENT: back pain, joint swelling, muscle weakness Integumentary: ABSENT: pruritus, rash Neurological: ABSENT: confusion, convulsions, focal weakness, memory loss, syncope Psychiatric: ABSENT: anxiety, depression Endocrine: ABSENT: cold intolerance, heat intolerance Hematologic/Lymphatic: ABSENT: easy bleeding, easy bruising Allergic/Immunologic: ABSENT: seasonal rhinorrhea Physical Exam Vital Signs: Temp Pulse Resp BP Pulse Ox 98.4 F 68 15 148/91 H 98 04/30/20 19:21 04/30/20 19:21 04/30/20 19:21 04/30/20 19:21 04/30/20 19:21 Intake & Output 04/28/20 04/29/20 04/30/20 23:59 23:59 23:59 Weight 99.79 kg General appearance: PRESENT: no acute distress, cooperative Head exam: PRESENT: atraumatic, normocephalic Eye exam: PRESENT: conjunctiva pink. ABSENT: conjunctival injection, scleral icterus Ear exam: PRESENT: normal external ear exam. ABSENT: bleeding, drainage Mouth exam: PRESENT: dry mucosa, neck supple Neck exam: ABSENT: thyromegaly, tracheal deviation Respiratory exam: PRESENT: clear to auscultation rupal, symmetrical, unlabored Cardiovascular exam: PRESENT: RRR. ABSENT: clicks, gallop, rubs Pulses: PRESENT: normal radial pulses, normal dorsalis pedis pul Vascular exam: PRESENT: normal capillary refill. ABSENT: pallor GI/Abdominal exam: PRESENT: normal bowel sounds, soft Rectal exam: PRESENT: deferred Extremities exam: ABSENT: joint swelling, pedal edema Musculoskeletal exam: ABSENT: deformity, dislocation Neurological exam: PRESENT: alert, oriented to person, oriented to place, oriented to time, oriented to situation, CN II-XII grossly intact. ABSENT: motor sensory deficit Psychiatric exam: PRESENT: appropriate affect, normal mood Skin exam: PRESENT: dry, intact, warm. ABSENT: jaundice, rash, urticaria Results Laboratory Results: 04/30/20 18:35 04/30/20 18:35 04/30/20 04/30/20 18:35 18:35 WBC 5.9 RBC 4.50 Hgb 13.1 L Hct 37.6 L MCV 83 MCH 29.0 MCHC 34.8 RDW 12.9 Plt Count 201 Seg Neutrophils % 51.5 Sodium 134.8 L Potassium 3.7 Chloride 102 Carbon Dioxide 27 Anion Gap 6 BUN 13 Creatinine 0.90 Est GFR ( Amer) > 60 Glucose 110 Calcium 9.4 Total Bilirubin 0.6 AST 32 Alkaline Phosphatase 61 Total Protein 7.3 Albumin 4.5 04/30/20 04/30/20 18:35 18:35 Creatine Kinase 344 H CK-MB (CK-2) 3.65 Troponin I < 0.012 Assessment and Plan - Diagnosis (1) Chest pain at rest Is this a current diagnosis for this admission?: Yes (2) Hypertension Qualifiers: Hypertension type: essential hypertension Qualified Code(s): I10 - Essential (primary) hypertension Is this a current diagnosis for this admission?: Yes (3) Hyperlipidemia Qualifiers: Hyperlipidemia type: unspecified Qualified Code(s): E78.5 - Hyperlipidemia, unspecified Is this a current diagnosis for this admission?: Yes (4) Family history of coronary artery disease Is this a current diagnosis for this admission?: Yes - Plan Summary Summary: Patient is admitted to the medical floor in a telemetry bed where he will receive routine supportive and symptomatic cares. He will be seen by Dr. Wadsworth in consultation for Cardiologic evaluation. He will use morphine sulfate 2 to 4 mg IV every 2 hours as needed chest pain not relieved by sublingual nitroglycerin. He will use Ativan 1 mg IV every 4 hours as needed for anxiety or restlessness. He will be treated with a cardiac diet. His usual medications will be continued, as appropriate, when his medication list has been verified and reconciled. Serial cardiac enzymes will be performed. A lipid profile will be performed. A thyroid screening will be performed. Additional laboratory and/or radiographic evaluations will be obtained as needed. Patient is expected to have a stress echocardiogram performed by Dr. Wadsworth tomorrow morning. - Time Time Spent with patient: 15-24 minutes Medications reviewed and adjusted accordingly: Yes Anticipated discharge: Home Within: within 24 hours - Inpatient Certification Based on my medical assessment, after consideration of the patient's comorbidities, presenting symptoms, or acuity I expect that the services needed warrant INPATIENT care.: No I certify that my determination is in accordance with my understanding of Medicare's requirements for reasonable and necessary INPATIENT services [42 CFR 412.3e].: No
--- NOTE | 2020-04-30 20:29 | RADIOLOGY REPORT (SQ) ---
XR CHEST 1 VIEW HISTORY: Chest pain. COMPARISON: 08/02/2019 FINDINGS: The heart size is within normal limits. There is no pulmonary vascular congestion. No consolidation, pleural effusion, or pneumothorax is seen. The bony structures are preserved. IMPRESSION: No evidence of acute cardiopulmonary disease.
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
--- NOTE | 2020-04-30 22:59 | RADIOLOGY REPORT (SQ) ---
EXAM DESCRIPTION: CT HEAD WITHOUT IV CONTRAST COMPLETED DATE/TME: 04/30/2020 00:00 CLINICAL HISTORY: 75 years, Male, Headache,Blured vision Left arm numbness COMPARISON: 08/22/2017 CT TECHNIQUE: 192 Images stored on PACS. All CT scanners at this facility use dose modulation, iterative reconstruction, and/or weight based dosing when appropriate to reduce radiation dose to as low as reasonably achievable (ALARA). [facility]: Dose Right [facility]: CareDose [facility]: Dose Right [facility]: Teradose 4D [facility]: [employer] LIMITATIONS: None. FINDINGS: The globes are intact. Polyp of the right maxillary sinus. No displaced or depressed skull fracture. No acute intracranial hemorrhage. Basal ganglia calcifications. CT is limited for evaluation of acute infarct. No CT evidence for large or territorial acute infarct. No mass or midline shift. IMPRESSION: No acute intracranial abnormality TECHNICAL DOCUMENTATION: Quality ID # 436: Final reports with documentation of one or more dose reduction techniques (e.g., Automated exposure control, adjustment of the mA and/or kV according to patient size, use of iterative reconstruction technique) copyright 2011 [employer]- All Rights Reserved
[2020-04-30] MEDS ORDERED: PROMETHAZINE HCL INJ 25 MG/1 ML VIAL IV PRN (23:05)
[2020-04-30] MEDS ORDERED: MORPHINE SULFATE 10 MG/ML INJ IV PRN (23:05)
[2020-04-30] MEDS ORDERED: HYDRALAZINE HCL INJ/PF 20 MG/1 ML SDV IV PRN (23:05)
[2020-04-30] MEDS ORDERED: MAGNESIUM HYDROXIDE SUSP 30 ML UDCUP PO PRN (23:05)
[2020-04-30] MEDS ORDERED: LORAZEPAM INJ 2 MG/1 ML VIAL IV PRN (23:05)
[2020-04-30] MEDS ORDERED: ACETAMINOPHEN 325 MG TABLET PO PRN (23:05)
[2020-04-30] MEDS ORDERED: GUAIFENESIN SYRP 200 MG/10 ML UDC PO PRN (23:05)
[2020-04-30] MEDS ORDERED: NITROGLYCERIN 0.4 MG/TAB 25 TAB/BOTTLE SL PRN (23:05)
[2020-04-30] MEDS ORDERED: MELATONIN 5 MG TABLET PO PRN (23:05)
[2020-04-30] MEDS ORDERED: MAG HYDROX/AL HYDROX/SIMETH SUSP 30 ML UDCUP PO PRN (23:05)
[2020-05-01] MEDS ORDERED: ENOXAPARIN SODIUM INJ 40 MG/0.4 ML DISP.SYRIN SUBCUT SCH (00:15)
[2020-05-01] MEDS: FAMOTIDINE 20 MG TABLET PO SCH ×2 (00:21→09:08)
--- NOTE | 2020-05-01 01:14 | EKG REPORT ---
SEVERITY:- NORMAL ECG - SINUS RHYTHM : Confirmed by: Cony Marr 01-May-2020 01:12:52
[2020-05-01 05:08] LABS: HEMATOCRIT 36.6 % (37.9-51.0); HEMOGLOBIN 12.4 g/dL (13.5-17.0); MEAN CORPUSCULAR HEMOGLOBIN 28.4 pg (27.0-33.4); MEAN CORPUSCULAR HGB CONC 33.9 g/dL (32.0-36.0); MEAN CORPUSCULAR VOLUME 84 fl (80-97); PLATELET COUNT 177 10^3/uL (150-450); RED BLOOD COUNT 4.38 10^6/uL (4.35-5.55); RED CELL DISTRIBUTION WIDTH 12.9 % (11.5-14.0); WHITE BLOOD COUNT 5.5 10^3/uL (4.0-10.5)
[2020-05-01 05:30] LABS: BLOOD UREA NITROGEN 10 mg/dL (7-20); CALCIUM 9.1 mg/dL (8.4-10.2); CARBON DIOXIDE 28 mmol/L (22-30); CHOLESTEROL 209.19 mg/dL (0-200); CREATINE KINASE 277 U/L (55-170); GLUCOSE 99 mg/dL (75-110); POTASSIUM 3.6 mmol/L (3.6-5.0); TRIGLYCERIDES 234 mg/dL (<150)
[2020-05-01 05:32] LABS: VLDL CHOLESTEROL 46.8 mg/dL (10-31)
[2020-05-01 05:35] LABS: CHLORIDE 105 mmol/L (98-107)
[2020-05-01 05:36] LABS: ANION GAP 4 (5-19)
[2020-05-01 05:40] LABS: CREATINE KINASE MB 2.75 ng/mL (<4.55)
[2020-05-01 05:41] LABS: DIRECT LDL 106 mg/dL (<100)
[2020-05-01 05:44] LABS: TROPONIN I < 0.012 ng/mL
[2020-05-01] MEDS ORDERED: DOCUSATE SODIUM 100 MG CAPSULE PO SCH (10:00)
[2020-05-01 10:38] LABS: CREATINE KINASE MB 2.64 ng/mL (<4.55)
[2020-05-01 10:43] LABS: TROPONIN I < 0.012 ng/mL
--- NOTE | 2020-05-01 10:54 | Progress Note ---
Provider Note Provider Note: CARDIOLOGY PROGRESS NOTE by Dr. Anel Wadsworth on 05/01/2020. SUBJECTIVE: The patient denies any further chest pain or discomfort. There is no shortness of breath. There is no PND orthopnea. There is no arrhythmias seen on the monitor. There is no palpitations. There is no TIA CVA symptoms. There is no leg edema. The patient is EKG has remained normal and his troponins are all negative. He denies any further headaches or blurred vision or numbness in the left upper extremity. The patient is being treated for H. pylori infection. PHYSICAL EXAMINATION: The patient is well-built and well-nourished in no acute distress. Selected Entries 05/01/20 07:41 Temperature 98.4 F Temperature Oral Source Pulse Rate 61 Respiratory 16 Rate Blood Pressure 138/86 H Blood Pressure 103 Mean BP Location Right Arm BP Position Sitting O2 Sat by Pulse 100 Oximetry Oxygen Delivery Room Air Method HEAD: Is atraumatic normocephalic. EYES: Pupils are equal round regular reactive light accommodation. Extraocular movements are normal. There is no conjunctival pallor. There is no scleral icterus. EARS: Tympanic membranes are intact. External auditory canals are clear. NOSE: There is no deviated nasal septum. There is no inflammation of the nasal mucous membrane. MOUTH: Mucous membranes of mouth are moist. Tongue is moist. There is no ulcers. There is no bleeding from the gums. THROAT: There is no redness of the oropharynx. There is no exudates. SKIN: There is no skin rashes. There is no petechia or ecchymosis. There is no skin lesions. NECK: Is supple. There is no JVD. Carotids are equal there is no bruits. There is no lymphadenopathy. There is no goiter. There is no accessory muscle respiration use. Trachea central. LUNGS: Is clear to auscultation percussion. There is no rhonchi rales or wheezing. HEART: S1-S2 is heard. There is no S3 gallop. There is no S4 gallop.. There is systolic murmur the left sternal border and the apex. There is no rub. ABDOMEN: Soft. There is no hepatosplenomegaly. The bowel sounds are well heard. There is no tender areas of masses. There is no rebound guarding or rigidity. EXTREMITIES: Femorals are well felt. Leg pulses are well felt. There is no pedal edema. There is no DVT or cellulitis. There is no cyanosis or clubbing. CLIENT LIAISON: Patient is conscious awake alert oriented x3 with no focal deficit. PSYCHIATRIC: Patient judgment insight are intact his affect is normal. The patient is EKG done serially x2 is within normal limits. Labs- Entire Visit 04/30/20 04/30/20 04/30/20 18:35 18:35 18:35 WBC 5.9 RBC 4.50 Hgb 13.1 L Hct 37.6 L MCV 83 MCH 29.0 MCHC 34.8 RDW 12.9 Plt Count 201 Lymph % (Auto) 34.9 [place] % (Auto) 10.5 Eos % (Auto) 2.5 Baso % (Auto) 0.6 Absolute Neuts (auto) 3.0 Absolute Lymphs (auto) 2.0 Absolute Monos (auto) 0.6 Absolute Eos (auto) 0.1 Absolute Basos (auto) 0.0 Seg Neutrophils % 51.5 D-Dimer Sodium 134.8 L Potassium 3.7 Chloride 102 Carbon Dioxide 27 Anion Gap 6 BUN 13 Creatinine 0.90 Est GFR ( Amer) > 60 Est GFR (MDRD) Non-Af > 60 Glucose 110 Calcium 9.4 Magnesium Total Bilirubin 0.6 Direct Bilirubin 0.0 Neonat Total Bilirubin Not Reportable Neonat Direct Bilirubin Not Reportable Neonat Indirect Bili Not Reportable AST 32 ALT 21 Alkaline Phosphatase 61 Creatine Kinase 344 H CK-MB (CK-2) 3.65 Troponin I < 0.012 Total Protein 7.3 Albumin 4.5 Triglycerides Cholesterol LDL Cholesterol Direct VLDL Cholesterol HDL Cholesterol TSH Free T3 pg/mL 04/30/20 04/30/20 04/30/20 18:35 18:35 21:43 WBC RBC Hgb Hct MCV MCH MCHC RDW Plt Count Lymph % (Auto) [place] % (Auto) Eos % (Auto) Baso % (Auto) Absolute Neuts (auto) Absolute Lymphs (auto) Absolute Monos (auto) Absolute Eos (auto) Absolute Basos (auto) Seg Neutrophils % D-Dimer 0.32 Sodium Potassium Chloride Carbon Dioxide Anion Gap BUN Creatinine Est GFR ( Amer) Est GFR (MDRD) Non-Af Glucose Calcium Magnesium Total Bilirubin Direct Bilirubin Neonat Total Bilirubin Neonat Direct Bilirubin Neonat Indirect Bili AST ALT Alkaline Phosphatase Creatine Kinase CK-MB (CK-2) Troponin I < 0.012 Total Protein Albumin Triglycerides Cholesterol LDL Cholesterol Direct VLDL Cholesterol HDL Cholesterol TSH Free T3 pg/mL 2.79 04/30/20 05/01/20 05/01/20 21:43 03:45 03:45 WBC RBC Hgb Hct MCV MCH MCHC RDW Plt Count Lymph % (Auto) [place] % (Auto) Eos % (Auto) Baso % (Auto) Absolute Neuts (auto) Absolute Lymphs (auto) Absolute Monos (auto) Absolute Eos (auto) Absolute Basos (auto) Seg Neutrophils % D-Dimer Sodium 137.1 Potassium 3.6 Chloride 105 Carbon Dioxide 28 Anion Gap 4 L BUN 10 Creatinine 0.87 Est GFR ( Amer) > 60 Est GFR (MDRD) Non-Af > 60 Glucose 99 Calcium 9.1 Magnesium 2.2 Total Bilirubin Direct Bilirubin Neonat Total Bilirubin Neonat Direct Bilirubin Neonat Indirect Bili AST ALT Alkaline Phosphatase Creatine Kinase 240 H 277 H CK-MB (CK-2) 2.75 Troponin I < 0.012 Total Protein Albumin Triglycerides 234 H Cholesterol 209.19 H LDL Cholesterol Direct 106 H VLDL Cholesterol 46.8 H HDL Cholesterol 50 TSH Free T3 pg/mL 05/01/20 05/01/20 05/01/20 03:45 03:45 09:25 WBC 5.5 RBC 4.38 Hgb 12.4 L Hct 36.6 L MCV 84 MCH 28.4 MCHC 33.9 RDW 12.9 Plt Count 177 Lymph % (Auto) [place] % (Auto) Eos % (Auto) Baso % (Auto) Absolute Neuts (auto) Absolute Lymphs (auto) Absolute Monos (auto) Absolute Eos (auto) Absolute Basos (auto) Seg Neutrophils % D-Dimer Sodium Potassium Chloride Carbon Dioxide Anion Gap BUN Creatinine Est GFR ( Amer) Est GFR (MDRD) Non-Af Glucose Calcium Magnesium Total Bilirubin Direct Bilirubin Neonat Total Bilirubin Neonat Direct Bilirubin Neonat Indirect Bili AST ALT Alkaline Phosphatase Creatine Kinase CK-MB (CK-2) 2.64 Troponin I < 0.012 Total Protein Albumin Triglycerides Cholesterol LDL Cholesterol Direct VLDL Cholesterol HDL Cholesterol TSH 4.07 Free T3 pg/mL 05/01/20 09:25 WBC RBC Hgb Hct MCV MCH MCHC RDW Plt Count Lymph % (Auto) [place] % (Auto) Eos % (Auto) Baso % (Auto) Absolute Neuts (auto) Absolute Lymphs (auto) Absolute Monos (auto) Absolute Eos (auto) Absolute Basos (auto) Seg Neutrophils % D-Dimer Sodium Potassium Chloride Carbon Dioxide Anion Gap BUN Creatinine Est GFR ( Amer) Est GFR (MDRD) Non-Af Glucose Calcium Magnesium Total Bilirubin Direct Bilirubin Neonat Total Bilirubin Neonat Direct Bilirubin Neonat Indirect Bili AST ALT Alkaline Phosphatase Creatine Kinase 286 H CK-MB (CK-2) Troponin I Total Protein Albumin Triglycerides Cholesterol LDL Cholesterol Direct VLDL Cholesterol HDL Cholesterol TSH Free T3 pg/mL Head CT 04/30/20 00:00 IMPRESSION: No acute intracranial abnormality TECHNICAL DOCUMENTATION: Quality ID # 436: Final reports with documentation of one or more dose reduction techniques (e.g., Automated exposure control, adjustment of the mA and/or kV according to patient size, use of iterative reconstruction technique) copyright 2011 [employer]- All Rights Reserved Chest X-Ray 04/30/20 19:21 IMPRESSION: No evidence of acute cardiopulmonary disease. IMPRESSION/RECOMMENDATION: 1. [R07.9] chest pain: Most likely noncardiac. But the patient has multiple CAD risk factors hence we will get an outpatient exercise treadmill Cardiolite stress test. This will be scheduled as an outpatient on this coming April. The patient is aware of this. 2. [I 25.10]. Coronary artery disease [presumed due to abnormal stress test in the past which showed inferior wall scar] with no anginal symptoms. 3. [I 10] hypertension: Blood pressure well controlled 4. [R01.1] systolic murmur: We will get an echo to assess the etiology of this. 5. [[K 21.9] GERD: Stable on proton pump inhibitors 6. [B 96.81] H. pylori infection: Patient on proton pump inhibitor and amoxicillin. Continue until completion of course. 7. [E 78.5] hyperlipidemia: Continue statins Medications reviewed. Medical regimen management plan discussed with the attending provider on the case. Medical history making is of moderate complexity. Cardiac status is stable. Patient can be discharged home for further outpatient work-up. We will sign off and follow the patient in the office. Discussed with the patient as to the cardiac etiology of his chest pain. Patient reassured. The patient has been scheduled for an echocardiogram today at 2 PM in my office. We will schedule the patient stress test for May 06, 2020 [this coming Monday]. Would recommend discharging the patient on: 1. Pravastatin 40 mg p.o. nightly. 2. Amoxicillin clavulanic acid Augmentin [id number] 1 tablet p.o. daily until course is completed. 3. Entry coated aspirin 81 mg p.o. daily. 4. Amlodipine 2.5 mg p.o. twice daily 5. Nitro-Dur 10 mg [0.4 mg/h] apply to thigh daily apply in a.m. remove at p.m. 6. Nitroglycerin 0.4 mg sublingually as needed chest pain as directed. 7. Lansoprazole [address] 1 p.o. daily. Patient to contact Dr. Wadsworth cell phone if any problems should arise.
--- NOTE | 2020-05-01 10:55 | PDOC DISCHARGE SUMMARY ---
Impression - Admit/DC Date/PCP Admission Date/Primary Care Provider: 04/30/20 20:20 KARINE OTTO MD Discharge Date: 05/01/20 - Discharge Diagnosis (1) Chest pain at rest Is this a current diagnosis for this admission?: Yes - Assessment Summary: Patient is admitted to the medical floor in a telemetry bed where he will receive routine supportive and symptomatic cares. He will be seen by Dr. Wadsworth in consultation for Cardiologic evaluation. He will use morphine sulfate 2 to 4 mg IV every 2 hours as needed chest pain not relieved by sublingual nitroglycerin. He will use Ativan 1 mg IV every 4 hours as needed for anxiety or restlessness. He will be treated with a cardiac diet. His usual medications will be continued, as appropriate, when his medication list has been verified and reconciled. Serial cardiac enzymes will be performed. A lipid profile will be performed. A thyroid screening will be performed. Additional laboratory and/or radiographic evaluations will be obtained as needed. Patient is expected to have a stress echocardiogram performed by Dr. Wadsworth tomorrow morning. - Additional Information Resuscitation Status: Full Code Discharge Diet: Cardiac Discharge Activity: Activity As Tolerated, Weigh Daily Referrals: KARINE OTOT MD [Primary Care Provider] - Follow up as needed Home Medications: Amlodipine Besylate [Norvasc 2.5 mg Tablet] 2.5 mg PO DAILY 10/13/19 [place]-3/Dha/Epa/Fish Oil [Fish Oil 500 mg Softgel] 2 each PO DAILY 10/13/19 Pravastatin Sodium 40 mg PO QHS 10/13/19 Amoxicillin/Potassium Clav [Augmentin 875-125 Tablet] 1 tab PO DAILY 04/30/20 Aspirin [Ecotrin 81 mg EC Tablet] 81 mg PO DAILY 04/30/20 Lansoprazole 30 mg PO DAILY 04/30/20 Nitroglycerin [Nitro-Dur 10 mg (0.4MG/Hr) Transdermal Patch] 1 patch TD QAM 04/30/20 History of Present Illiness History of Present Illness: SULAIMAN TALLEY is a 75 year old male with PMH significant for CAD, HTN, dyslipidemia, diverticulosis, and GERD who presented to the ED with complaints of chest pain. He was seen approximately 1 year ago in the ED with similar symptoms and at that time his EKG and troponins were unremarkable. He is a patient of Dr. Wadsworth and was seen by him in his office 3 days prior to presenting to the ED. At that time he was prescribed nitroglycerin in patch form as well as sublingual for episodes of chest discomfort. Apparently the patient placed a nitroglycerin patch and developed an headache and decided to take it off. When he started to experience chest pain he did not use the nitroglycerin. He was also scheduled for an echocardiogram which will be completed today and Dr. Wadsworth's office. Patient became concerned with his chest pain and presented to the ED for evaluation. His EKG was unremarkable and his cardiac enzymes revealed a CK of 286 with a CK-MB of 2.64 and a troponin of 0.012. The hospitalist service was asked to admit the patient to observation until he could be evaluated by Dr. Wadsworth this morning. The patient was seen by Dr. Wadsworth and cleared for discharge. Hospital Course Hospital Course: The patient was admitted to observation and had no further episodes of chest discomfort. In the morning of 05/01/2020 he was seen by Dr. Wadsworth and cleared for discharge. He will follow-up in Dr. Wadsworth's office later today with an echocardiogram Physical Exam Vital Signs: Temp Pulse Resp BP Pulse Ox 98.4 F 54 L 16 138/86 H 100 05/01/20 07:41 05/01/20 08:25 05/01/20 07:41 05/01/20 07:41 05/01/20 07:41 Intake & Output 04/30/20 05/01/20 05/02/20 06:59 06:59 06:59 Intake Total 120 Output Total 0 Balance 120 Weight 95.3 kg General appearance: PRESENT: no acute distress, cooperative, well-developed, well-nourished Head exam: PRESENT: atraumatic, normocephalic Eye exam: PRESENT: conjunctiva pink Mouth exam: PRESENT: moist, tongue midline Neck exam: ABSENT: JVD Respiratory exam: PRESENT: clear to auscultation rupal, symmetrical, unlabored. ABSENT: accessory muscle use Cardiovascular exam: PRESENT: RRR, +S1, +S2 Pulses: PRESENT: normal carotid pulses, normal radial pulses Vascular exam: PRESENT: normal capillary refill GI/Abdominal exam: PRESENT: normal bowel sounds, soft. ABSENT: distended, tenderness Rectal exam: PRESENT: deferred Extremities exam: PRESENT: full ROM. ABSENT: calf tenderness Musculoskeletal exam: PRESENT: ambulatory Neurological exam: PRESENT: alert, awake, oriented to person, oriented to place, oriented to time, oriented to situation, CN II-XII grossly intact Psychiatric exam: ABSENT: agitated, anxious Skin exam: PRESENT: dry, normal color, warm Results Laboratory Results: WBC 5.5 10^3/uL (4.0-10.5) 05/01/20 03:45 RBC 4.38 10^6/uL (4.35-5.55) 05/01/20 03:45 Hgb 12.4 g/dL (13.5-17.0) L 05/01/20 03:45 Hct 36.6 % (37.9-51.0) L 05/01/20 03:45 MCV 84 fl (80-97) 05/01/20 03:45 MCH 28.4 pg (27.0-33.4) 05/01/20 03:45 MCHC 33.9 g/dL (32.0-36.0) 05/01/20 03:45 RDW 12.9 % (11.5-14.0) 05/01/20 03:45 Plt Count 177 10^3/uL (150-450) 05/01/20 03:45 Lymph % (Auto) 34.9 % (13-45) 04/30/20 18:35 [place] % (Auto) 10.5 % (3-13) 04/30/20 18:35 Eos % (Auto) 2.5 % (0-6) 04/30/20 18:35 Baso % (Auto) 0.6 % (0-2) 04/30/20 18:35 Absolute Neuts (auto) 3.0 10^3/uL (1.7-8.2) 04/30/20 18:35 Absolute Lymphs (auto) 2.0 10^3/uL (0.5-4.7) 04/30/20 18:35 Absolute Monos (auto) 0.6 10^3/uL (0.1-1.4) 04/30/20 18:35 Absolute Eos (auto) 0.1 10^3/uL (0.0-0.6) 04/30/20 18:35 Absolute Basos (auto) 0.0 10^3/uL (0.0-0.2) 04/30/20 18:35 Seg Neutrophils % 51.5 % (42-78) 04/30/20 18:35 D-Dimer 0.32 ug/mL (0.00-0.50) 04/30/20 18:35 Sodium 137.1 mmol/L (137-145) 05/01/20 03:45 Potassium 3.6 mmol/L (3.6-5.0) 05/01/20 03:45 Chloride 105 mmol/L (98-107) 05/01/20 03:45 Carbon Dioxide 28 mmol/L (22-30) 05/01/20 03:45 Anion Gap 4 (5-19) L 05/01/20 03:45 BUN 10 mg/dL (7-20) 05/01/20 03:45 Creatinine 0.87 mg/dL (0.52-1.25) 05/01/20 03:45 Est GFR ( Amer) > 60 (>60) 05/01/20 03:45 Est GFR (MDRD) Non-Af > 60 (>60) 05/01/20 03:45 Glucose 99 mg/dL (75-110) 05/01/20 03:45 Calcium 9.1 mg/dL (8.4-10.2) 05/01/20 03:45 Magnesium 2.2 mg/dL (1.6-2.3) 05/01/20 03:45 Total Bilirubin 0.6 mg/dL (0.2-1.3) 04/30/20 18:35 Direct Bilirubin 0.0 mg/dL (0.0-0.4) 04/30/20 18:35 Neonat Total Bilirubin Not Reportable 04/30/20 18:35 Neonat Direct Bilirubin Not Reportable 04/30/20 18:35 Neonat Indirect Bili Not Reportable 04/30/20 18:35 AST 32 U/L (17-59) 04/30/20 18:35 ALT 21 U/L (<50) 04/30/20 18:35 Alkaline Phosphatase 61 U/L (38-126) 04/30/20 18:35 Creatine Kinase 286 U/L (55-170) H 05/01/20 09:25 CK-MB (CK-2) 2.75 ng/mL (<4.55) 05/01/20 03:45 Troponin I < 0.012 ng/mL 05/01/20 03:45 Total Protein 7.3 g/dL (6.3-8.2) 04/30/20 18:35 Albumin 4.5 g/dL (3.5-5.0) 04/30/20 18:35 Triglycerides 234 mg/dL (<150) H 05/01/20 03:45 Cholesterol 209.19 mg/dL (0-200) H 05/01/20 03:45 LDL Cholesterol Direct 106 mg/dL (<100) H 05/01/20 03:45 VLDL Cholesterol 46.8 mg/dL (10-31) H 05/01/20 03:45 HDL Cholesterol 50 mg/dL (>40) 05/01/20 03:45 TSH 4.07 uIU/mL (0.47-4.68) 05/01/20 03:45 Free T3 pg/mL 2.79 pg/mL (2.77-5.27) 04/30/20 18:35 04/30/20 04/30/20 05/01/20 18:35 21:43 03:45 CK-MB (CK-2) 3.65 2.75 Troponin I < 0.012 < 0.012 < 0.012 Impressions: Head CT 04/30/20 00:00 IMPRESSION: No acute intracranial abnormality TECHNICAL DOCUMENTATION: Quality ID # [id number]: Final reports with documentation of one or more dose reduction techniques (e.g., Automated exposure control, adjustment of the mA and/or kV according to patient size, use of iterative reconstruction technique) copyright 2011 [employer]- All Rights Reserved Chest X-Ray 04/30/20 19:21 IMPRESSION: No evidence of acute cardiopulmonary disease. Plan Health Concerns: Patient was encouraged to contact Dr. Wadsworth with any further complaints of chest pain Plan of Treatment: Patient will be discharged home on his [employer] medications and follow-up in Dr. Johnson's office today for outpatient echocardiogram and then will follow up with Dr. Wadsworth as scheduled Goals: To remain chest pain-free Time Spent: Greater than 30 Minutes Stroke Is this a Stroke Patient?: No Acute Heart Failure - Is this a Heart Failure Patient?: No
[2020-05-01 11:08] VITALS: BP 140/79
--- NOTE | 2020-05-02 10:25 | EKG REPORT ---
SEVERITY:- NORMAL ECG - SINUS RHYTHM : Confirmed by: Cony Marr 02-May-2020 10:24:32
== END 2020-05-01 11:51 | disposition home or self-care (01) ==
LOC: ER 18:28 → EH 20:20 → 4W 23:21
PROVIDERS: ADMIT Emergency Medicine; ATTEND Nurse Practitioner
DX: R07.89 Other chest pain (principal); I25.10 Atherosclerotic heart disease of native coronary artery without angina pectoris; K21.9 Gastro-esophageal reflux disease without esophagitis; E78.5 Hyperlipidemia, unspecified; R51 Headache; H53.8 Other visual disturbances; I10 Essential (primary) hypertension; R01.1 Cardiac murmur, unspecified; R20.2 Paresthesia of skin; B96.81 Helicobacter pylori [H. pylori] as the cause of diseases classified elsewhere; G89.29 Other chronic pain; M54.9 Dorsalgia, unspecified; Z18.89 Other specified retained foreign body fragments; Z79.899 Other long term (current) drug therapy; Z90.49 Acquired absence of other specified parts of digestive tract; Z82.49 Family history of ischemic heart disease and other diseases of the circulatory system; Z79.82 Long term (current) use of aspirin; M19.90 Unspecified osteoarthritis, unspecified site; Z87.19 Personal history of other diseases of the digestive system
CPT/HCPCS: 93005 ×2; 99285; 36415 ×2; 82553 ×2; 82550 ×2; 83735; 84443; 85025; 85027; 80048; 80053; 84484 ×2; 84481; 85379; 80061; 71045; 70450; 93010 ×2; A9270 ×4; J1650; G0378

== ENCOUNTER 2020-07-14 17:55 | Emergency (ER) | payer MEDICARE, OTHER ==
[2020-07-14 18:52] LABS: ABSOLUTE EOSINOPHILS # (AUTO) 0.2 10^3/uL (0.0-0.6); ABSOLUTE LYMPHOCYTES (AUTO) 1.9 10^3/uL (0.5-4.7); ABSOLUTE MONOCYTES (AUTO) 0.6 10^3/uL (0.1-1.4); ABSOLUTE NEUT (AUTO) 2.1 10^3/uL (1.7-8.2); BASOPHILS % (AUTO) 0.6 % (0-2); EOSINOPHILS % (AUTO) 3.8 % (0-6); HEMATOCRIT 36.4 % (37.9-51.0); HEMOGLOBIN 12.8 g/dL (13.5-17.0); LYMPHOCYTES % (AUTO) 39.9 % (13-45); MEAN CORPUSCULAR HEMOGLOBIN 29.3 pg (27.0-33.4); MEAN CORPUSCULAR HGB CONC 35.2 g/dL (32.0-36.0); MEAN CORPUSCULAR VOLUME 83 fl (80-97); MONOCYTES % (AUTO) 12.5 % (3-13); PLATELET COUNT 227 10^3/uL (150-450); RED BLOOD COUNT 4.38 10^6/uL (4.35-5.55); RED CELL DISTRIBUTION WIDTH 13.1 % (11.5-14.0); SEGMENTED NEUTROPHILS % (AUTO) 43.2 % (42-78); TOTAL CELLS COUNTED % (AUTO) 100 %; WHITE BLOOD COUNT 4.7 10^3/uL (4.0-10.5)
[2020-07-14 19:05] LABS: ALBUMIN 4.4 g/dL (3.5-5.0); ALKALINE PHOSPHATASE 58 U/L (38-126); ANION GAP 7 (5-19); ASPARTATE AMINO TRANSFERASE 36 U/L (17-59); BILIRUBIN,DIRECT 0.3 mg/dL (0.0-0.4); BILIRUBIN,TOTAL 0.6 mg/dL (0.2-1.3); BLOOD UREA NITROGEN 9 mg/dL (7-20); CALCIUM 9.2 mg/dL (8.4-10.2); CARBON DIOXIDE 28 mmol/L (22-30); CHLORIDE 102 mmol/L (98-107); CREATINE KINASE 155 U/L (55-170); GLUCOSE 94 mg/dL (75-110); POTASSIUM 4.2 mmol/L (3.6-5.0); TOTAL PROTEIN 7.1 g/dL (6.3-8.2)
--- NOTE | 2020-07-14 19:09 | RADIOLOGY REPORT (SQ) ---
EXAM DESCRIPTION: CHEST SINGLE VIEW IMAGES COMPLETED DATE/TIME: 07/14/2020 6:46 pm REASON FOR STUDY: chest pain COMPARISON: 04/30/2020 TECHNIQUE: Single frontal radiographic view of the chest acquired. NUMBER OF VIEWS: One view. LIMITATIONS: None. FINDINGS: LUNGS AND PLEURA: No pneumothorax. No consolidation or pleural effusion. MEDIASTINUM AND HILAR STRUCTURES: Stable. HEART AND VASCULAR STRUCTURES: Stable. BONES: No acute findings. HARDWARE: None in the chest. OTHER: No other significant finding. IMPRESSION: NO ACUTE FINDINGS. TECHNICAL DOCUMENTATION: JOB ID: [id number] [place]-72 2010 [employer]- All Rights Reserved Reading location - IP/workstation name: [email or web address]
[2020-07-14 19:17] LABS: CREATINE KINASE MB 2.04 ng/mL (<4.55)
[2020-07-14 19:18] LABS: TROPONIN I < 0.012 ng/mL
--- NOTE | 2020-07-14 20:09 | ER Document Report ---
ED General - General Chief Complaint: Chest Pain Stated Complaint: HEADACHE,CHEST PAIN Time Seen by Provider: 07/14/20 20:08 Primary Care Provider: ALBERT RODGERS MD [Primary Care Provider] - Follow up as needed TRAVEL OUTSIDE OF THE [place] IN LAST 30 DAYS: No - HPI Notes: 75-year-old male presents with headache. Patient states that he developed a headache on Monday, states is located in the back of his head. He denies any known injury. He states it hurts and it is very sensitive to touch. It started off as a light headache and has progressively worsened over the past few days. He states he has taken Tylenol without relief. He has not had a headache like this before. He states that he had a colonoscopy on Monday and was not really feeling too well afterwards, however then on Monday developed the headache. He additionally states that he had a brief episode of chest pain today around 3 PM, states that it was a little bit of pain, has completely resolved now and has not returned. He states that his main reason for evaluation today is the headache. - Related Data Allergies/Adverse Reactions: No Known Allergies Allergy (Verified 04/30/20 19:23) Home Medications: Amlodipine, aspirin, Nitro Past Medical History - General Information source: Patient - Social History Smoking Status: Never Smoker Frequency of alcohol use: Occasional Family History: CAD - Father, DM - Siblings Patient has homicidal ideation: No - Past Medical History Cardiac Medical History: Reports: Hx Coronary Artery Disease, Hx Hypercholesterolemia, Hx Hypertension Denies: Hx Atrial Fibrillation, Hx Congestive Heart Failure, Hx DVT, Hx Heart Attack, Hx Peripheral Vascular Disease, Hx Pulmonary Embolism Pulmonary Medical History: Denies: Hx Asthma, Hx COPD, Hx Tuberculosis Neurological Medical History: Denies: Hx Cerebrovascular Accident, Hx Seizures Endocrine Medical History: Denies: Hx Diabetes Mellitus Type 1, Hx Diabetes Mellitus Type 2, Hx Hyperthyroidism, Hx Hypothyroidism Renal/ Medical History: Denies: Hx Peritoneal Dialysis GI Medical History: Reports: Hx Diverticulitis, Hx Gastroesophageal Reflux Disease. Denies: Hx Cirrhosis, Hx Crohn's Disease, Hx Hepatitis, Hx Hiatal Hernia, Hx Irritable Bowel, Hx Liver Failure, Hx Pancreatitis, Hx Ulcer, Hx Ulcerative Colitis Musculoskeletal Medical History: Reports Hx Arthritis, Denies Hx Fibromyalgia, Denies Hx Muscular Dystrophy Skin Medical History: Denies Hx Eczema, Denies Hx Psoriasis Psychiatric Medical History: Denies: Hx Depression Traumatic Medical History: Denies: Hx Fractures Infectious Medical History: Denies: Hx Hepatitis Past Surgical History: Reports: Hx Appendectomy, Hx Bowel Surgery - r/t diverticulitis, Other - Colectomy: 2009, EGD and colonoscopy. Denies: Hx Cholecystectomy, Hx Colostomy, Hx Coronary Artery Bypass Graft, Hx Gastric Bypass Surgery, Hx Herniorrhaphy, Hx Open Heart Surgery, Hx Pacemaker, Hx Tonsillectomy - Immunizations Hx Diphtheria, Pertussis, Tetanus Vaccination: Yes Hx Pneumococcal Vaccination: 08/09/11 Review of Systems - Review of Systems Constitutional: denies: Fever EENT: denies: Double vision Cardiovascular: denies: Chest pain - Denies currently Respiratory: denies: Short of breath Gastrointestinal: denies: Abdominal pain, Nausea, Vomiting Genitourinary: No symptoms reported Male Genitourinary: No symptoms reported Musculoskeletal: No symptoms reported Skin: No symptoms reported Hematologic/Lymphatic: No symptoms reported Neurological/Psychological: denies: Weakness Physical Exam - Vital signs Vitals: Temp Pulse Resp BP Pulse Ox 98.1 F 80 16 141/78 H 100 07/14/20 18:08 07/14/20 18:08 07/14/20 18:08 07/14/20 18:08 07/14/20 18:08 - General General appearance: Appears well, Alert In distress: None - HEENT Head: Normocephalic, Tenderness - Right parietal scalp tenderness Eyes: Normal Extraocular movements intact: Yes Pupils: PERRL Neck: Normal, Supple - Respiratory Breath sounds: Normal - Cardiovascular Rhythm: Regular Heart sounds: Normal auscultation - Abdominal Distension: No distension Tenderness: Nontender - Extremities General lower extremity: No: Edema - Neurological Neuro grossly intact: Yes Cognition: Normal Orientation: AAOx4 Cranial nerves: Normal Motor strength normal: LUE, RUE, LLE, RLE Sensory: Normal - Psychological Associated symptoms: Normal affect - Skin Skin Temperature: Warm Course - Re-evaluation Re-evalutation: 35-year-old male presents with posterior headache now on day 4. Atraumatic, but does have some tenderness to the posterior scalp and question of there is some mild swelling, no wound or erythema to suggest infection. He is neurologically intact vital signs stable. Discussed with him possibly may be there is an injury that occurred while he was sedated for colonoscopy on Monday or potentially may be something that happened in his sleep. Have a lower concern for intracranial pathology at this time given his intact neuro status and dur ation. Have ordered a CT head to evaluate. He does not exhibit any signs of meningitis/encephalitis at this time. Will start with Compazine/Benadryl for treatment. In terms of his chest pain, he had a brief episode which is vague in nature, it has now completely resolved. His EKG is non-ischemic. 07/14/20 22:08 No leukocytosis or left shift. Chronic anemia, stable. Electrolytes within normal limits. Creatinine within normal limits. Troponin is negative, taken greater than 3 hours after onset of brief chest pain. CT head is without acute abnormality. Chest x-ray is without consolidation. 07/14/20 22:10 Patient states that he has had improvement in his headache. He is gotten up to use the restroom. I updated him and his on the results. Return precautions given, patient stable at time of discharge. - Vital Signs Vital signs: Temp Pulse Resp BP Pulse Ox 98.1 F 80 14 134/87 H 98 07/14/20 18:08 07/14/20 18:08 07/14/20 21:01 07/14/20 21:01 07/14/20 21:01 - Laboratory Result Diagrams: 07/14/20 18:28 07/14/20 18:28 Laboratory results interpreted by me: 07/14/20 18:28 Hgb 12.8 L Hct 36.4 L - Diagnostic Test Radiology reviewed: Image reviewed, Reports reviewed - EKG Interpretation by Me Additional EKG results interpreted by me: EKG is interpreted by me. Normal sinus rhythm, rate 60. Narrow QRS, QTC within normal limits. No ST segment elevation or ST segment depression. EKG similar in appearance to previous dated 05/02/2020 Discharge - Discharge Clinical Impression: Headache in back of head Disposition: HOME, SELF-CARE Instructions: Headache ([facility]) Additional Instructions: You may continue ibuprofen or Tylenol for pain. Please have close follow-up with your primary care doctor. Return to the emergency department for any worsening of symptoms or any new symptoms that are concerning. Referrals: ALBERT RODGERS MD [Primary Care Provider] - Follow up as needed
[2020-07-14] MEDS ORDERED: DIPHENHYDRAMINE HCL 50 MG/ML VIAL IV ONE (20:23)
[2020-07-14] MEDS ORDERED: PROCHLORPERAZINE EDISYLATE INJ 10 MG/2 ML VIAL IV ONE (20:23)
--- NOTE | 2020-07-14 21:01 | RADIOLOGY REPORT (SQ) ---
EXAM DESCRIPTION: Noncontrast CT head CLINICAL HISTORY: 75 years Male posterior SIEGEL TECHNIQUE: Noncontrast CT head. All CT scans at this facility use dose modulation, iterative reconstruction, and/or weight based dosing when appropriate to reduce radiation dose to as low as reasonably achievable. COMPARISON: April 30, 2020 FINDINGS: Asencio matter, white matter, ventricles, and cisterns are within normal limits. No acute hemorrhage or mass effect. Visualized portions of paranasal sinuses demonstrate a large mucous retention cyst versus polyp in the right maxillary sinus. The mastoids are clear. Visualized portions of the calvarium are within normal limits. IMPRESSION: 1. No acute intracranial findings.
[2020-07-14 22:39] VITALS: BP 114/75
--- NOTE | 2020-07-15 15:17 | EKG REPORT ---
SEVERITY:- NORMAL ECG - SINUS RHYTHM : Confirmed by: Anel Wadsworth MD 15-Jul-2020 15:16:15
== END 2020-07-14 22:39 | disposition home or self-care (01) ==
LOC: ER 17:55
DX: R51.9 Headache, unspecified (principal); R07.9 Chest pain, unspecified; D64.9 Anemia, unspecified; I25.10 Atherosclerotic heart disease of native coronary artery without angina pectoris; E78.00 Pure hypercholesterolemia, unspecified; I10 Essential (primary) hypertension
CPT/HCPCS: 93005; 99285; 96374; 96375; 36415; 82553; 82550; 85025; 80053; 84484; 71045; 70450; 93010; J1200; J0780

== ENCOUNTER 2020-07-28 16:40 | Emergency (ER) | payer MEDICARE ==
--- NOTE | 2020-07-28 17:02 | ER Document Report ---
ED Medical Screen (RME) - General Chief Complaint: Chest Pain > 30 Stated Complaint: CHEST PAIN/HEADACHE/BLURRED VISION Time Seen by Provider: 07/28/20 16:53 Primary Care Provider: ALBERT RODGERS MD [Primary Care Provider] - Follow up as needed TRAVEL OUTSIDE OF THE [place] IN LAST 30 DAYS: No - HPI Notes: 07/28/20 17:00 75-year-old male with a history of "mild HI" and hyperlipidemia presents to the emergency room with left-sided chest pain that started on Monday, he states he started with blurred vision in both eyes which started yesterday and today he started with numbness and tingling going down his left arm today. Reports his chest pain is 3 out of 5, sharp intermittent for the last 2 days but today he states it feels like it is constant. Patient states he did have a stress test done he believes last month in [place]. 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 Denies any history of hypertension or diabetes. Patient's not sure when he did have his "mild heart attack". Denies any shortness of breath, nausea vomiting fever or chills. I have greeted and performed a rapid initial assessment of this patient. A comprehensive ED assessment and evaluation of the patient, analysis of test results and completion of the medical decision making process will be conducted by additional ED providers. PHYSICAL EXAMINATION: GENERAL: Well-appearing, well-nourished and in no acute distress. HEAD: Atraumatic, normocephalic. EYES: Pupils equal round extraocular movements intact, conjunctiva are normal. NECK: Normal range of motion CV: s1, s2 regular LUNGS: No respiratory distress Musculoskeletal: Normal range of motion NEUROLOGICAL: Normal speech, normal gait. SKIN: Warm, Dry, normal turgor, no rashes or lesions noted. - Related Data Allergies/Adverse Reactions: No Known Allergies Allergy (Verified 07/28/20 16:53) Past Medical History - Past Medical History Cardiac Medical History: Reports: Hx Coronary Artery Disease, Hx Hypercholesterolemia, Hx Hypertension Denies: Hx Atrial Fibrillation, Hx Congestive Heart Failure, Hx DVT, Hx Heart Attack, Hx Peripheral Vascular Disease, Hx Pulmonary Embolism Pulmonary Medical History: Denies: Hx Asthma, Hx COPD, Hx Tuberculosis Neurological Medical History: Denies: Hx Cerebrovascular Accident, Hx Seizures Endocrine Medical History: Denies: Hx Diabetes Mellitus Type 1, Hx Diabetes Mellitus Type 2, Hx Hyperthyroidism, Hx Hypothyroidism Renal/ Medical History: Denies: Hx Peritoneal Dialysis GI Medical History: Reports: Hx Diverticulitis, Hx Gastroesophageal Reflux Disease. Denies: Hx Cirrhosis, Hx Crohn's Disease, Hx Hepatitis, Hx Hiatal Hernia, Hx Irritable Bowel, Hx Liver Failure, Hx Pancreatitis, Hx Ulcer, Hx Ulcerative Colitis Musculoskeltal Medical History: Reports Hx Arthritis, Denies Hx Fibromyalgia, Denies Hx Muscular Dystrophy Skin Medical History: Denies Hx Eczema, Denies Hx Psoriasis Psychiatric Medical History: Denies: Hx Depression Traumatic Medical History: Denies: Hx Fractures Infectious Medical History: Denies: Hx Hepatitis Past Surgical History: Reports: Hx Appendectomy, Hx Bowel Surgery - r/t diverticulitis, Other - Colectomy: 2009, EGD and colonoscopy. Denies: Hx Cholecystectomy, Hx Colostomy, Hx Coronary Artery Bypass Graft, Hx Gastric Bypass Surgery, Hx Herniorrhaphy, Hx Open Heart Surgery, Hx Pacemaker, Hx Tonsillectomy - Immunizations Hx Diphtheria, Pertussis, Tetanus Vaccination: Yes Physical Exam - Vital signs Vitals: Temp Pulse Resp BP Pulse Ox 97.8 F 65 16 130/85 H 97 07/28/20 16:52 07/28/20 16:52 07/28/20 16:52 07/28/20 16:52 07/28/20 16:52 Course - Vital Signs Vital signs: Temp Pulse Resp BP Pulse Ox 97.8 F 65 16 130/85 H 97 07/28/20 16:52 07/28/20 16:52 07/28/20 16:52 07/28/20 16:52 07/28/20 16:52 Doctor's Discharge - Discharge Referrals: ALBERT RODGERS MD [Primary Care Provider] - Follow up as needed
[2020-07-28 17:35] LABS: ABSOLUTE EOSINOPHILS # (AUTO) 0.1 10^3/uL (0.0-0.6); ABSOLUTE LYMPHOCYTES (AUTO) 1.7 10^3/uL (0.5-4.7); ABSOLUTE MONOCYTES (AUTO) 0.6 10^3/uL (0.1-1.4); ABSOLUTE NEUT (AUTO) 3.8 10^3/uL (1.7-8.2); BASOPHILS % (AUTO) 0.7 % (0-2); EOSINOPHILS % (AUTO) 1.4 % (0-6); HEMATOCRIT 38.5 % (37.9-51.0); HEMOGLOBIN 12.9 g/dL (13.5-17.0); MEAN CORPUSCULAR HEMOGLOBIN 28.3 pg (27.0-33.4); MEAN CORPUSCULAR HGB CONC 33.4 g/dL (32.0-36.0); MEAN CORPUSCULAR VOLUME 85 fl (80-97); PLATELET COUNT 213 10^3/uL (150-450); RED BLOOD COUNT 4.54 10^6/uL (4.35-5.55); RED CELL DISTRIBUTION WIDTH 13.2 % (11.5-14.0); SEGMENTED NEUTROPHILS % (AUTO) 60.9 % (42-78); TOTAL CELLS COUNTED % (AUTO) 100 %; WHITE BLOOD COUNT 6.3 10^3/uL (4.0-10.5)
[2020-07-28 17:48] LABS: ALBUMIN 4.2 g/dL (3.5-5.0); ALKALINE PHOSPHATASE 65 U/L (38-126); ANION GAP 8 (5-19); ASPARTATE AMINO TRANSFERASE 28 U/L (17-59); BILIRUBIN,DIRECT 0.2 mg/dL (0.0-0.4); BILIRUBIN,TOTAL 0.5 mg/dL (0.2-1.3); BLOOD UREA NITROGEN 16 mg/dL (7-20); CALCIUM 9.5 mg/dL (8.4-10.2); CARBON DIOXIDE 28 mmol/L (22-30); CHLORIDE 100 mmol/L (98-107); CREATINE KINASE 143 U/L (55-170); GLUCOSE 99 mg/dL (75-110); POTASSIUM 4.2 mmol/L (3.6-5.0); TOTAL PROTEIN 6.9 g/dL (6.3-8.2)
--- NOTE | 2020-07-28 17:54 | RADIOLOGY REPORT (SQ) ---
EXAM DESCRIPTION: CHEST SINGLE VIEW IMAGES COMPLETED DATE/TIME: 07/28/2020 5:33 pm REASON FOR STUDY: chest pain x3 days COMPARISON: 07/14/2020 EXAM PARAMETERS: NUMBER OF VIEWS: One view. TECHNIQUE: Single frontal radiographic view of the chest acquired. RADIATION DOSE: NA LIMITATIONS: None. FINDINGS: LUNGS AND PLEURA: No opacities, masses or pneumothorax. No pleural effusion. MEDIASTINUM AND HILAR STRUCTURES: No masses. Contour normal. HEART AND VASCULAR STRUCTURES: Heart normal in size. Normal vasculature. BONES: No acute findings. HARDWARE: None in the chest. OTHER: No other significant finding. IMPRESSION: NO ACUTE RADIOGRAPHIC FINDING IN THE CHEST. TECHNICAL DOCUMENTATION: JOB ID: [id number] 2010 [employer]- All Rights Reserved Reading location - IP/workstation name: [email or web address]
[2020-07-28 18:00] LABS: CREATINE KINASE MB 2.14 ng/mL (<4.55); TROPONIN I < 0.012 ng/mL
--- NOTE | 2020-07-28 18:17 | ER Document Report ---
ED Cardiac - General Chief Complaint: Chest Pain > 30 Stated Complaint: CHEST PAIN/HEADACHE/BLURRED VISION Time Seen by Provider: 07/28/20 16:53 Primary Care Provider: ALBERT RODGERS MD [Primary Care Provider] - Follow up as needed Mode of Arrival: Ambulatory Information source: Patient Notes: 07/28/20 17:00 - Nursing Note by ALANNAHALONZO [facility] Num: [id number] : 1945 Patient Age: 75 c/o chest pain. pt states mid CP started Monday and has continued with left chest and left arm heaviness starting today. pt reports mild SIEGEL with bilateral blurred vision started yesterday, pt denies SOB, no generalized body weakness and no N/V. S Tyesha [employer]SC[employer] PRODUCER assessing complaint and discussing continued POC with pt ED Medical Screen (Tyesha notes) - General Chief Complaint: Chest Pain > 30 Stated Complaint: CHEST PAIN/HEADACHE/BLURRED VISION Time Seen by Provider: 07/28/20 16:53 Primary Care Provider: ALBERT RODGERS MD [Primary Care Provider] - Follow up as needed TRAVEL OUTSIDE OF THE [place] IN LAST 30 DAYS: No - HPI Notes: 07/28/20 17:00 75-year-old male with a history of "mild DE" and hyperlipidemia presents to the emergency room with left-sided chest pain that started on Monday, he states he started with blurred vision in both eyes which started yesterday and today he started with numbness and tingling going down his left arm today. Reports his chest pain is 3 out of 5, sharp intermittent for the last 2 days but today he states it feels like it is constant. Patient states he did have a stress test done he believes last month in [place]. Dr. Johnson is his clothing presser. Denies any history of hypertension or diabetes. Patient's not sure when he did have his "mild heart attack". Denies any shortness of breath, nausea vomiting fever or chills. I have greeted and performed a rapid initial assessment of this patient. A comprehensive ED assessment and evaluation of the patient, analysis of test r esults and completion of the medical decision making process will be conducted by additional ED providers. PHYSICAL EXAMINATION: GENERAL: Well-appearing, well-nourished and in no acute distress. HEAD: Atraumatic, normocephalic. EYES: Pupils equal round extraocular movements intact, conjunctiva are normal. NECK: Normal range of motion CV: s1, s2 regular LUNGS: No respiratory distress Musculoskeletal: Normal range of motion NEUROLOGICAL: Normal speech, normal gait. SKIN: Warm, Dry, normal turgor, no rashes or lesions noted. MY NOTES 75-year-old male arrives with chief complaint of chest pain x2 days which has been continuous. Patient had a stress test done 1 month ago in [place]. Patient advises he had an DE in the past. Patient reports at [place] they did a catheterization first and then were unable to see a certain backside of his heart and then had a CT scan of his heart which proved within normal limits as told to pt by Dr. Johnson. Patient is accompanied by Audelia his . The patient advises he was having left-sided chest pain pointing to his mid clavicular seventh intercostal space that began on Monday while watching football. He denies any excessive excitement or any problems at february have induced his chest pain. He denies drinking alcohol or smoking at the time. He denies any trauma or fever or chills or rhinorrhea bailey or influenza symptoms. Patient reports the pain continued until today when it began to radiate to his substernal area. He also is been having some numbness of his left hand and severe headache with blurry vision. Labs and troponin were all normal as well as his chest x-ray. A CT of head was done after physical exam. I called Jes at [phone] and he advised second trop and CTA chest r/o PE. TRAVEL OUTSIDE OF THE [place] IN LAST 30 DAYS: No - HPI Patient complains to provider of: Chest pain Was the onset of pain: Sudden Is the pain a: Chronic problem Chest pain location: Pleuritic Quality of pain: Moderate, Heaviness, Tightness - Related Data Allergies/Adverse Reactions: No Known Allergies Allergy (Verified 07/28/20 16:53) Past Medical History - Social History Smoking Status: Never Smoker Chew tobacco use (# tins/day): No Frequency of alcohol use: Occasional Drug Abuse: None Family History: CAD - Father, DM - Siblings Patient has homicidal ideation: No - Past Medical History Cardiac Medical History: Reports: Hx Coronary Artery Disease, Hx Hypercholesterolemia, Hx Hypertension Denies: Hx Atrial Fibrillation, Hx Congestive Heart Failure, Hx DVT, Hx Heart Attack, Hx Peripheral Vascular Disease, Hx Pulmonary Embolism Pulmonary Medical History: Denies: Hx Asthma, Hx COPD, Hx Tuberculosis Neurological Medical History: Denies: Hx Cerebrovascular Accident, Hx Seizures Endocrine Medical History: Denies: Hx Diabetes Mellitus Type 1, Hx Diabetes Mellitus Type 2, Hx Hyperthyroidism, Hx Hypothyroidism Renal/ Medical History: Denies: Hx Peritoneal Dialysis GI Medical History: Reports: Hx Diverticulitis, Hx Gastroesophageal Reflux Disea se. Denies: Hx Cirrhosis, Hx Crohn's Disease, Hx Hepatitis, Hx Hiatal Hernia, Hx Irritable Bowel, Hx Liver Failure, Hx Pancreatitis, Hx Ulcer, Hx Ulcerative Colitis Musculoskeletal Medical History: Reports Hx Arthritis, Denies Hx Fibromyalgia, Denies Hx Muscular Dystrophy Skin Medical History: Denies Hx Eczema, Denies Hx Psoriasis Psychiatric Medical History: Denies: Hx Depression Traumatic Medical History: Denies: Hx Fractures Infectious Medical History: Denies: Hx Hepatitis Past Surgical History: Reports: Hx Appendectomy, Hx Bowel Surgery - r/t diverticulitis, Other - Colectomy: 2009, EGD and colonoscopy. Denies: Hx Cholecystectomy, Hx Colostomy, Hx Coronary Artery Bypass Graft, Hx Gastric Bypass Surgery, Hx Herniorrhaphy, Hx Open Heart Surgery, Hx Pacemaker, Hx Tonsillectomy - Immunizations Hx Diphtheria, Pertussis, Tetanus Vaccination: Yes Hx Pneumococcal Vaccination: 08/09/11 Review of Systems - Review of Systems Constitutional: No symptoms reported EENT: No symptoms reported Cardiovascular: No symptoms reported Respiratory: No symptoms reported Gastrointestinal: No symptoms reported Genitourinary: No symptoms reported Male Genitourinary: No symptoms reported Musculoskeletal: No symptoms reported Skin: No symptoms reported Hematologic/Lymphatic: No symptoms reported Neurological/Psychological: No symptoms reported Physical Exam - Vital signs Vitals: Temp Pulse Resp BP Pulse Ox 97.8 F 65 16 130/85 H 97 07/28/20 16:52 07/28/20 16:52 07/28/20 16:52 07/28/20 16:52 07/28/20 16:52 Interpretation: Normal - General General appearance: Appears well, Alert - HEENT Head: Normocephalic, Atraumatic Eyes: Normal Pupils: PERRL - Respiratory Respiratory status: No respiratory distress Chest status: Nontender Breath sounds: Normal Chest palpation: Normal - Cardiovascular Rhythm: Regular Heart sounds: Normal auscultation Murmur: No - Abdominal Inspection: Normal Distension: No distension Bowel sounds: Normal Tenderness: Nontender Organomegaly: No organomegaly - Rectal Prostate: Other - deferred - Genitourinary Scrotum: Other - deferred - Back Back: Normal, Nontender - Extremities General upper extremity: Normal inspection, Nontender, Normal color, Normal ROM, Normal temperature General lower extremity: Normal inspection, Nontender, Normal color, Normal ROM, Normal temperature, Normal weight bearing. No: Garrett's sign - Neurological Neuro grossly intact: Yes Cognition: Normal Orientation: AAOx4 Nora Coma Scale Eye Opening: Spontaneous Nora Coma Scale Verbal: Oriented Fabián Coma Scale Motor: Obeys Commands Nora Coma Scale Total: 15 Speech: Normal Motor strength normal: LUE, RUE, LLE, RLE Sensory: Normal - Psychological Associated symptoms: Normal affect, Normal mood - Skin Skin Temperature: Warm Skin Moisture: Dry Skin Color: Normal Course - Vital Signs Vital signs: Temp Pulse Resp BP Pulse Ox 97.8 F 65 16 145/92 H 100 07/28/20 19:32 07/28/20 16:52 07/28/20 19:20 07/28/20 19:31 07/28/20 19:31 - Laboratory Result Diagrams: 07/28/20 17:16 07/28/20 17:16 Laboratory results interpreted by me: 07/28/20 07/28/20 17:16 17:16 Hgb 12.9 L Sodium 135.8 L - Diagnostic Test Radiology reviewed: Reports reviewed - CT scan with right pleural effusion hiatal hernia 2 mm right upper lobe pulmonary nodule. Advised 1 year repeat. Also there is a right renal cyst. - EKG Interpretation by Me EKG shows normal: Sinus rhythm Rate: Normal - With heart rate 61 bpm with heart rate 50 to [address] elevation no ST depression nor any T wave elevation or T wave depression. Rhythm: NSR Critical Care Note - Critical Care Note Comments: I again discussed this case with Dr. Johnson around 0 and he actually called me. He advised the second troponin was negative and this patient may follow-up tomorrow in his office/call him tomorrow. Discharge - Discharge Clinical Impression: Hiatal hernia with GERD, Angina at rest Condition: Stable Disposition: HOME, SELF-CARE Additional Instructions: Follow-up with Dr. Elizabeth clothing presser this week ; return to ER as needed; take medicines as directed; encourage fluids; Prescriptions: Sucralfate [Carafate 1 gm Tablet] 1 gm PO TID PRN #40 tablet PRN Reason: Referrals: ALBERT RODGERS MD [Primary Care Provider] - Follow up as needed
--- NOTE | 2020-07-28 18:51 | RADIOLOGY REPORT (SQ) ---
EXAM DESCRIPTION: CT HEAD WITHOUT IMAGES COMPLETED DATE/TIME: 07/28/2020 6:41 pm REASON FOR STUDY: lion COMPARISON: 03/14/2020 TECHNIQUE: Axial images acquired through the brain without intravenous contrast. Images reviewed wi th bone, brain and subdural windows. Additional sagittal and coronal reconstructions were generated. Images stored on PACS. All CT scanners at this facility use dose modulation, iterative reconstruction, and/or weight based d osing when appropriate to reduce radiation dose to as low as reasonably achievable (ALARA). [facility]: Dose Right [facility]: CareDose [facility]: Dose Right [facility]: Teradose 4D [facility]: [employer] RADIATION DOSE: CT Rad equipment meets quality standard of care and radiation dose reduction techniq ues were employed. CTDIvol: 53.2 mGy. DLP: 1017 mGy-cm. mGy. LIMITATIONS: None. FINDINGS: VENTRICLES: Normal size and contour. CEREBRUM: No masses. No hemorrhage. No midline shift. No evidence for acute infarction. Normal gra y/white matter differentiation. No areas of low density in the white matter. CEREBELLUM: No masses. No hemorrhage. No alteration of density. No evidence for acute infarction. EXTRAAXIAL SPACES: No fluid collections. No masses. ORBITS AND GLOBE: No intra- or extraconal masses. Normal contour of globe without masses. CALVARIUM: No fracture. PARANASAL SINUSES: Polypoid mucosal thickening within the right maxillary sinus, stable. SOFT TISSUES: No mass or hematoma. OTHER: No other significant finding. IMPRESSION: NO ACUTE INTRACRANIAL IMAGING FINDINGS. EVIDENCE OF ACUTE STROKE: NO. COMMENT: Quality ID # 436: Final reports with documentation of one or more dose reduction techniques (e.g., Automated exposure control, adjustment of the mA and/or kV according to patient size, use of iterative reconstruction technique) TECHNICAL DOCUMENTATION: JOB ID: [id number] 2010 [employer]- All Rights Reserved Reading location - IP/workstation name: [email or web address]
--- NOTE | 2020-07-28 20:34 | RADIOLOGY REPORT (SQ) ---
EXAM DESCRIPTION: CT CHEST ANGIOGRAPHY WITHOUT THEN WITH IV CONTRAST COMPLETED DATE/TME: 07/28/2020 18:51 CLINICAL HISTORY: 75 years, Male, cp left sided COMPARISON: None. TECHNIQUE: Contrast enhanced CT of the chest was acquired. Images were obtained after the administration of 70 mL of Omnipaque 350 intravenous contrast. MIPS were created. Images stored on PACS. All CT scanners at this facility use dose modulation, iterative reconstruction, and/or weight based dosing when appropriate to reduce radiation dose to as low as reasonably achievable (ALARA). [facility]: Dose Right [facility]: CareDose [facility]: Dose Right [facility]: Teradose 4D [facility]: [employer]moxy LIMITATIONS: None. FINDINGS: Central airways are patent. Lung windows show biapical scarring. Visualized is a 2 mm solid nodule within the right upper lobe anterior segment on image 47 of series 4. Lungs are otherwise clear. Mediastinal windows show no suspicious hilar or mediastinal lymph node enlargement. Calcifications are evident about the coronary vessels. Study is adequate for the evaluation of pulmonary emboli. No filling defects are identified to the proximal segmental level. There is a trace right pleural effusion. Limited evaluation of the upper abdomen reveals a small hiatal hernia. Additionally, there is a fluid density lesion located within the interpolar region of the right kidney, indicative of a simple renal cyst. Separate subcentimeter low-density lesion about the left kidney is too small to accurately characterize. No additional suspicious findings are evident within the imaged upper abdomen. Bone windows show no destructive osseous lesions. IMPRESSION: No evidence of pulmonary embolism. Trace right pleural effusion. 2 mm right solid pulmonary nodule within the upper lobe. If patient is low risk for malignancy, no routine follow-up imaging is recommended; if patient is high risk for malignancy, a non-contrast Chest CT at 12 months is optional. If performed and the nodule is stable at 12 months, no further follow-up is recommended. These guidelines do not apply to immunocompromised patients and patients with cancer. Follow up in patients with significant comorbidities as clinically warranted. For lung cancer screening, adhere to Lung-RADS guidelines. Reference: Radiology. 2017; 284(1):228-43. TECHNICAL DOCUMENTATION: Quality ID # 436: Final reports with documentation of one or more dose reduction techniques (e.g., Automated exposure control, adjustment of the mA and/or kV according to patient size, use of iterative reconstruction technique) copyright 2011 [employer] (acquired by [employer])- All Rights Reserved
--- NOTE | 2020-07-28 21:28 | EKG REPORT ---
SEVERITY:- OTHERWISE NORMAL ECG - SINUS ARRHYTHMIA, RATE 50-76 : Confirmed by: Pino Westfall MD 28-Jul-2020 21:27:27
[2020-07-28] MEDS ORDERED: SUCRALFATE 1 GM TABLET PO ONE (21:36)
[2020-07-28] MEDS ORDERED: MAG HYDROX/AL HYDROX/SIMETH SUSP 30 ML UDCUP PO ONE (21:37)
[2020-07-28] MEDS ORDERED: METOCLOPRAMIDE HCL ORAL SOLN 10 MG/10 ML UDCUP PO ONE (21:37)
[2020-07-28] MEDS ORDERED: LIDOCAINE 2% VISCOUS SOLN 15 ML UDCUP PO ONE (21:37)
[2020-07-28 22:38] VITALS: BP 132/80
== END 2020-07-28 22:49 | disposition home or self-care (01) ==
LOC: ER 16:40
DX: I25.119 Atherosclerotic heart disease of native coronary artery with unspecified angina pectoris (principal); K21.9 Gastro-esophageal reflux disease without esophagitis; K44.9 Diaphragmatic hernia without obstruction or gangrene; R51.9 Headache, unspecified; H53.8 Other visual disturbances; I25.2 Old myocardial infarction; R20.0 Anesthesia of skin; R20.2 Paresthesia of skin; J90 Pleural effusion, not elsewhere classified; R91.1 Solitary pulmonary nodule; Q61.01 Congenital single renal cyst
CPT/HCPCS: 93005; 99285; 36415; 82553; 82550; 85025; 80053; 84484; 71045; 70450; 71275; 93010; J3490; A9270 ×3

== ENCOUNTER → 2020-08-13 | Outpatient (CLI) | payer MEDICARE, OTHER ==
--- NOTE | 2020-08-13 13:21 | RADIOLOGY REPORT (SQ) ---
EXAM DESCRIPTION: BARIUM SWALLOW ESOPHAGUS IMAGES COMPLETED DATE/TIME: 08/13/2020 9:52 am REASON FOR STUDY: CHEST PAIN R07.9 CHEST PAIN, UNSPECIFIED COMPARISON: None. TECHNIQUE: Under fluoroscopic guidance, patient ingested effervescent granules followed by thick and thin barium. Fluoroscopic spot images and routine radiographic images acquired and stored on PACS. 12 MM BARIUM TABLET GIVEN: Barium tablet passed through the esophagus and into the stomach without de lay. LIMITATIONS: None. FLUOROSCOPY TIME: FLUORO TIME: 2.0 minutes 5 images saved to PACS. FINDINGS: NEUROMUSCULAR COORDINATION OF SWALLOW: Normal. No aspiration. ESOPHAGEAL MOTILITY: Normal peristalsis. No esophageal spasm. ESOPHAGEAL MUCOSA: Normal mucosa without masses or ulceration. GASTRO-ESOPHAGEAL JUNCTION: Tiny hiatal hernia is present. No gastroesophageal reflux seen. NON-GI TRACT STRUCTURES: No significant finding. OTHER: No other significant finding. IMPRESSION: TINY HIATAL HERNIA. OTHERWISE UNREMARKABLE STUDY. RECOMMENDATION: NONE COMMENT: None Quality ID 145: Final reports for procedures using fluoroscopy that document radiation exposure guru christine, or exposure time and number of fluorographic images (if radiation exposure indices are not avail able) TECHNICAL DOCUMENTATION: JOB ID: [id number] 2010 [employer]- All Rights Reserved Reading location - IP/workstation name: [email or web address] [id number]
== END ==
LOC: RAD 09:21
PROVIDERS: ATTEND Specialist
DX: R07.9 Chest pain, unspecified (principal); K44.9 Diaphragmatic hernia without obstruction or gangrene
CPT/HCPCS: 74220

== ENCOUNTER → 2020-09-08 | Outpatient (CLI) | payer MEDICARE, OTHER ==
--- NOTE | 2020-09-08 14:29 | ER [facility] ASSESSMENT REPORT ---
Intake - In the Last 14 days Have you traveled outside [place]?: No Have you been in close contact with someone CONFIRMED: No Worked in Healthcare?: No - Symptoms Subjective Fever([place] feverish): No Chills: No Muscule Aches: No Runny Nose: No Sore Throat: No Cough (New or worsening chronic cough): No Shortness of breath: No Nausea or Vomiting: No Headache: No Abdominal Pain: No Diarrhea(3 or more loose stools in last 24 hours): No - Do you have any of the following Chronic lung disease: Asthma or emphysema or COPD: No Cystic Fibrosis: No Diabetes: No High Blood Pressure: No Cardiovascular Disease: No Chronic Kidney Disease: No Chronic Liver Disease: No Chronic blood disorder like Sickle Cell Disease: No Weak immune system due to disease or medication: No Neurologic condition that limits movement: No Developmental delay - Moderate to Severe: No Recent (within past 2 weeks) or current : No Morbid Obesity (>100 pounds over ideal weight): No - Objective Temperature: 98.6 F Pulse Rate: 75 Respiratory Rate: 15 Blood Pressure: 158/75 O2 Sat by Pulse Oximetry: 97 Objective: Given above, testing performed: If Testing Performed: Test Specimen Type Sent to General - General Information source: Patient Notes: Patient presents to the [facility] for screening for the coronavirus. Patient denies any symptoms at this time. Patient spouse works around children and they would just like to be screened at this time. - Related Data Allergies/Adverse Reactions: No Known Allergies Allergy (Verified 07/28/20 16:53) Past Medical History - General Information source: Patient - Social History Family History: CAD - Father, DM - Siblings - Past Medical History Cardiac Medical History: Denies: Hx Atrial Fibrillation, Hx Congestive Heart Failure, Hx DVT, Hx Heart Attack, Hx Peripheral Vascular Disease, Hx Pulmonary Embolism Pulmonary Medical History: Denies: Hx Asthma, Hx COPD, Hx Tuberculosis Neurological Medical History: Denies: Hx Cerebrovascular Accident, Hx Seizures Endocrine Medical History: Denies: Hx Diabetes Mellitus Type 1, Hx Diabetes Me llitus Type 2, Hx Hyperthyroidism, Hx Hypothyroidism Renal/ Medical History: Denies: Hx Peritoneal Dialysis GI Medical History: Reports: Hx Diverticulitis, Hx Gastroesophageal Reflux Disease. Denies: Hx Cirrhosis, Hx Crohn's Disease, Hx Hepatitis, Hx Hiatal Hernia, Hx Irritable Bowel, Hx Liver Failure, Hx Pancreatitis, Hx Ulcer, Hx Ulcerative Colitis Musculoskeletal Medical History: Reports Hx Arthritis, Denies Hx Fibromyalgia, Denies Hx Muscular Dystrophy Skin Medical History: Denies Hx Eczema, Denies Hx Psoriasis Psychiatric Medical History: Denies: Hx Depression Traumatic Medical History: Denies: Hx Fractures Infectious Medical History: Denies: Hx Hepatitis Past Surgical History: Reports: Hx Appendectomy, Hx Bowel Surgery - r/t diverticulitis, Other - Colectomy: 2009, EGD and colonoscopy Physical Exam - Notes Notes: The patient was evaluated during the global Covid 19 pandemic, and that diagnosis was suspected/considered upon their initial presentation. Their evaluation, treatment and testing was consistent with current guidelines for patients who present with complaints or symptoms that may be related to Covid 19. Full physical exam could not be performed due to covid 19 isolation protocols. Constitutional: Nontoxic appearance, no acute distress Eyes: Nonicteric, extraocular movements intact, sclera clear ENT: Posterior pharynx clear without exudates Cardiovascular: Heart rate and rhythm regular, no JVD Respiratory: Breath sounds clear bilaterally, nonlabored breathing, no use of accessory muscles, no tachypnea Gastrointestinal: Abdomen not distended Muculoskeletal: Moves all extremities well Skin: Normal color Neuro: Awake alert oriented, normal speech Psych: Normal mood and affect Diagnostic Results Laboratory Results: Patient presents with concerns about exposure for possible Covid 19. Patient does not have emergency worrying symptoms such as difficulty breathing, shortness of breath, chest pain, pressure, confusion or cyanosis. Patient appears suitable for discharge as vital signs are stable and patient is nontoxic in appearance. Good return precautions have been discussed with patient, patient verbalized understanding and is agreeable with discharge plan of care at this time. Patient Education/Counseling Counseling/Education: Patient was provided with discharge information including: As a person under investigation for Covid 19, the [place] department of Health and Human Services, division of public health advises you to adhere to the following guidance until your test results are reported to you. If your test result is positive, you will receive additional information from your provider and your local health department at that time. Remain at home until you are cleared by the health provider or public health authorities. Keep a log of visitors to your home, notify any visitors to your home of your isolation status. If you plan to move to a new address or leave the county, notify the local health department in your County. Call your doctor or seek care if you have an urgent medical need. Before seeking medical care, call ahead to get instructions from the provider before arriving at the medical office clinic or hospital. Notify them that you are being tested for the virus that causes Covid 19 so that arrangements can be made, as necessary, to prevent transmission to others in the healthcare setting. Next, notify the local health department in your county. If a medical emergency arises and you need to call 911, inform the first responders that you are being tested for the virus that causes Covid 19. Next, notify the local health department in your county. [facility] Discharge - Discharge Clinical Impression: Encounter for screening laboratory testing for COVID-19 virus in asymptomatic patient Condition: Stable Disposition: Home; Selfcare
[2020-09-08 14:46] VITALS: BP 158/75
== END ==
LOC: RDC 13:55
PROVIDERS: ATTEND Nurse Practitioner Family
DX: Z20.828 Contact with and (suspected) exposure to other viral communicable diseases (principal); K21.9 Gastro-esophageal reflux disease without esophagitis; M13.80 Other specified arthritis, unspecified site
CPT/HCPCS: 99211; U0003; G0463; C9803; 87635

== ENCOUNTER 2020-10-16 16:45 | Emergency (ER) | payer MEDICARE, OTHER ==
[2020-10-16] MEDS ORDERED: MORPHINE SULFATE 10 MG/ML INJ IV ONE ×2 (17:43→22:00)
--- NOTE | 2020-10-16 17:45 | ER Document Report ---
ED Medical Screen (RME) - General Chief Complaint: Abdominal Pain Stated Complaint: HEADACHE,ABDOMINAL PAIN Time Seen by Provider: 10/16/20 17:34 Primary Care Provider: SERA FRAIRE MD [Primary Care Provider] - Follow up as needed Mode of Arrival: Ambulatory Information source: Patient Notes: HPI; 75-year-old male past medical history significant for diverticulitis and chronic back pain presents to the emergency room complaining of a headache for the past 2 weeks that has been getting progressively worse. States is on the top of his head denies any trauma or injury. Denies worst headache of his life. Denies any sudden thunderclap. Also has been having worsening left lower quadrant abdominal pain for the past 2 months. History of diverticulitis. Saw his primary care physician 2 weeks ago who prescribed him Augmentin but did not do any testing. States his pain has not gotten any better. Low back pain is chronic schedule for procedure the end of the month for his chronic back pain. Has been taking Tylenol without relief. Denies any nausea, vomiting, no urinary symptoms. No diarrhea. No COVID-19 exposure. PE: Alert and oriented x3. Lungs: Clear to auscultation without rales, rhonchi, wheezes. Heart: Regular rate rhythm without murmurs, rubs, gallops .GORGE RAMIRES I have greeted and performed a rapid initial assessment of this patient. A comprehensive ED assessment and evaluation of the patient, analysis of test results and completion of the medical decision making process will be conducted by additional ED providers. I have specifically instructed the patient or family members with the patient to immediately return to any nursing staff should anything change in the patient's condition or with their chief complaint. TRAVEL OUTSIDE OF THE [place] IN LAST 30 DAYS: No - Related Data Allergies/Adverse Reactions: No Known Allergies Allergy (Verified 07/28/20 16:53) Past Medical History - Social History Chew tobacco use (# tins/day): No Frequency of alcohol use: None Drug Abuse: None - Past Medical History Cardiac Medical History: Reports: Hx Coronary Artery Disease, Hx Hypercholesterolemia, Hx Hypertension Denies: Hx Atrial Fibrillation, Hx Congestive Heart Failure, Hx DVT, Hx Heart Attack, Hx Peripheral Vascular Disease, Hx Pulmonary Embolism Pulmonary Medical History: Denies: Hx Asthma, Hx COPD, Hx Tuberculosis Neurological Medical History: Denies: Hx Cerebrovascular Accident, Hx Seizures Endocrine Medical History: Denies: Hx Diabetes Mellitus Type 1, Hx Diabetes Mellitus Type 2, Hx Hyperthyroidism, Hx Hypothyroidism Renal/ Medical History: Denies: Hx Peritoneal Dialysis GI Medical History: Reports: Hx Diverticulitis, Hx Gastroesophageal Reflux Disease. Denies: Hx Cirrhosis, Hx Crohn's Disease, Hx Hepatitis, Hx Hiatal Hernia, Hx Irritable Bowel, Hx Liver Failure, Hx Pancreatitis, Hx Ulcer, Hx Ulcerative Colitis Musculoskeltal Medical History: Reports Hx Arthritis, Denies Hx Fibromyalgia, Denies Hx Muscular Dystrophy Skin Medical History: Denies Hx Eczema, Denies Hx Psoriasis Psychiatric Medical History: Denies: Hx Depression Traumatic Medical History: Denies: Hx Fractures Infectious Medical History: Denies: Hx Hepatitis Past Surgical History: Reports: Hx Appendectomy, Hx Bowel Surgery - r/t diverticulitis, Other - Colectomy: 2008, EGD and colonoscopy - Immunizations Hx Diphtheria, Pertussis, Tetanus Vaccination: Yes Physical Exam - Vital signs Vitals: Temp Pulse Resp BP Pulse Ox 98.3 F 87 18 163/84 H 93 10/16/20 16:55 10/16/20 16:55 10/16/20 16:55 10/16/20 16:55 10/16/20 16:55 Course - Vital Signs Vital signs: Temp Pulse Resp BP Pulse Ox 98.3 F 87 18 163/84 H 93 10/16/20 16:55 10/16/20 16:55 10/16/20 16:55 10/16/20 16:55 10/16/20 16:55 Doctor's Discharge - Discharge Referrals: SERA FRAIRE MD [Primary Care Provider] - Follow up as needed
[2020-10-16 18:53] LABS: ABSOLUTE EOSINOPHILS # (AUTO) 0.2 10^3/uL (0.0-0.6); ABSOLUTE LYMPHOCYTES (AUTO) 1.8 10^3/uL (0.5-4.7); ABSOLUTE MONOCYTES (AUTO) 0.9 10^3/uL (0.1-1.4); ABSOLUTE NEUT (AUTO) 3.3 10^3/uL (1.7-8.2); BASOPHILS % (AUTO) 0.4 % (0-2); EOSINOPHILS % (AUTO) 3.3 % (0-6); HEMATOCRIT 38.7 % (37.9-51.0); HEMOGLOBIN 12.8 g/dL (13.5-17.0); LYMPHOCYTES % (AUTO) 29.1 % (13-45); MEAN CORPUSCULAR HEMOGLOBIN 27.5 pg (27.0-33.4); MEAN CORPUSCULAR HGB CONC 32.9 g/dL (32.0-36.0); MEAN CORPUSCULAR VOLUME 84 fl (80-97); MONOCYTES % (AUTO) 14.4 % (3-13); PLATELET COUNT 228 10^3/uL (150-450); RED BLOOD COUNT 4.64 10^6/uL (4.35-5.55); SEGMENTED NEUTROPHILS % (AUTO) 52.8 % (42-78); TOTAL CELLS COUNTED % (AUTO) 100 %; WHITE BLOOD COUNT 6.3 10^3/uL (4.0-10.5)
[2020-10-16 18:56] LABS: APPEARANCE,URINE CLEAR; BILIRUBIN,URINE NEGATIVE (NEGATIVE); COLOR,URINE STRAW; GLUCOSE, URINE NEGATIVE (NEGATIVE); KETONES,URINE NEGATIVE (NEGATIVE); LEUKOCYTE ESTERASE,URINE NEGATIVE (NEGATIVE); NITRITE,URINE NEGATIVE (NEGATIVE); PROTEIN,URINE NEGATIVE (NEGATIVE); URINE SPECIFIC GRAVITY 1.003; UROBILINOGEN,URINE NEGATIVE mg/dL (<2.0)
[2020-10-16 19:16] LABS: ALBUMIN 4.2 g/dL (3.5-5.0); ALKALINE PHOSPHATASE 82 U/L (38-126); ANION GAP 7 (5-19); ASPARTATE AMINO TRANSFERASE 39 U/L (17-59); BILIRUBIN,DIRECT 0.3 mg/dL (0.0-0.4); BILIRUBIN,TOTAL 0.6 mg/dL (0.2-1.3); BLOOD UREA NITROGEN 9 mg/dL (7-20); CALCIUM 9.5 mg/dL (8.4-10.2); CARBON DIOXIDE 30 mmol/L (22-30); CHLORIDE 101 mmol/L (98-107); GLUCOSE 89 mg/dL (75-110); POTASSIUM 4.8 mmol/L (3.6-5.0); TOTAL PROTEIN 7.1 g/dL (6.3-8.2)
--- NOTE | 2020-10-16 22:41 | RADIOLOGY REPORT (SQ) ---
EXAM DESCRIPTION: CT HEAD WITHOUT IV CONTRAST COMPLETED DATE/TME: 10/16/2020 21:56 CLINICAL HISTORY: 75 years, Male, headache COMPARISON: 07/28/2020 CT TECHNIQUE: 208 Images stored on PACS. All CT scanners at this facility use dose modulation, iterative reconstruction, and/or weight based dosing when appropriate to reduce radiation dose to as low as reasonably achievable (ALARA). [facility]: Dose Right [facility]: CareDose [facility]: Dose Right [facility]: Teradose 4D [facility]: Chegg LIMITATIONS: None. FINDINGS: Globes are intact. Polyp of the right maxillary sinus. No displaced or depressed skull fracture. No acute intracranial hemorrhage. Bilateral basal ganglia calcifications. Mild atrophy. No mass or midline shift IMPRESSION: No acute intracranial abnormality TECHNICAL DOCUMENTATION: Quality ID # [id number]: Final reports with documentation of one or more dose reduction techniques (e.g., Automated exposure control, adjustment of the mA and/or kV according to patient size, use of iterative reconstruction technique) copyright 2011 [facility]- All Rights Reserved
--- NOTE | 2020-10-16 22:52 | RADIOLOGY REPORT (SQ) ---
EXAM DESCRIPTION: CT ABD/PELVIS WITH IV ONLY CLINICAL HISTORY: 75 years Male; abdominal pain TECHNIQUE: CT of the abdomen and pelvis with intravenous contrast.. Oral contrastWas not used. Delayed imaging of the abdomen and pelvis was also performed. All CT scans at this facility use dose modulation, iterative reconstruction, and/or weight based dosing when appropriate to reduce radiation dose to as low as reasonably achievable. This exam was performed according to our department optimization program which includes automated exposure control, adjustment of the mA and/or kv according to patient size and/or use of iterative reconstruction technique. COMPARISON: CT scan of the abdomen and pelvis 04/27/2020 FINDINGS: Lower chest:The lung bases are clear. The visualized portion of heart and great vessels are normal. Abdomen: Liver and biliary tree:The liver appears normal. The gallbladder small and contracted. No biliary dilatation. Portal vein and hepatic veins are patent. No biliary dilatation. Pancreas: Normal Spleen:Within normal limits Kidneys: Kidneys are normal in size, shape and position. No stones. No mass or hydronephrosis. Symmetric renal enhancement. On delayed images there is symmetric contrast excretion. Small cysts are present in both kidneys which are stable. Adrenal glands:Within normal limits Vascular structures: Scattered vascular plaque in the aorta and visceral arteries. No aneurysm. The mesenteric arteries are patent. Retroperitoneum: No mass or lymphadenopathy Abdominal wall: normal GI: Diverticula are present in the colon. There is scattered stool in the colon. There is been previous right colectomy with a surgical anastomotic line with the bowel. No bowel obstruction. No acute process is seen. Appendix: Surgically absent General: No free air. No free fluid Pelvis: Lymph nodes: No mass or lymphadenopathy Bladder: Unremarkable. Pelvis: No pelvic mass or adenopathy. Bones: There is facet arthropathy in the mid and lower lumbar spine. No destructive bone lesions. IMPRESSION: No acute process. No significant interval change. There is postoperative change of right-sided colectomy. No bowel obstruction.
[2020-10-17 00:08] VITALS: BP 136/88
--- NOTE | 2020-10-17 00:23 | ER Document Report ---
ED GI/ - General Chief Complaint: Abdominal Pain Stated Complaint: HEADACHE,ABDOMINAL PAIN Time Seen by Provider: 10/16/20 17:34 Primary Care Provider: SERA FRAIRE MD [NO LOCAL MD] - Follow up in 3-5 days Mode of Arrival: Ambulatory Information source: Patient Notes: 75-year-old male presented to ED for complaint of abdominal pain and chronic back pain. He has a history of diverticulitis. Patient states he has pain to the top of his head but has not had any trauma or injuries. Patient states he is also been having left lower quadrant abdominal pain for about 2 months and it was worse last night. He states he saw his primary care doctor about 2 weeks ago who put him on Augmentin but did not do any testing. He states his pain has not gotten any better. He states he also has chronic low back pain and is scheduled for a procedure at the end of the month. Patient is alert and oriented answering all questions appropriately. CT of the head without contrast showed degenerative changes but no acute changes. IV contrasted CT of the abdomen pelvis showed no acute processes. States there were diverticula present but there were no diverticulitis. Stated there was no bowel obstructions and there were surgical changes. WBC was 6.3 with segs of 52.8. Discussed these findings with patient and written report of labs and CTs were given to patient to follow-up with primary care doctor. Constitutional: Negative for fever. HENT: Negative for sore throat. Eyes: Negative for visual changes. Cardiovascular: Negative for chest pain. Respiratory: Negative for shortness of breath. Gastrointestinal: Patient states he had abdominal pain for the last 2 months but is getting better at this time. He states his abdominal pain was about a 3 it is headache was about a 2 at the time of his exam. Genitourinary: Negative for dysuria. Musculoskeletal: Chronic back pain Skin: Negative for rash. Neurological: Headache that was not sudden onset and denies sudden thunderclap headache. States it is not the worst headache of his life. 10 point ROS negative except as marked above and in HPI. VITAL SIGNS: Within normal limits. GENERAL: No acute distress, non-toxic appearance. HEAD: Normal with no signs of head trauma. EYES: PERRLA, EOMI, conjunctiva normal, no discharge. NECK: Normal range of motion, no tenderness, supple, no lymphadenopathy, No adenopathy, no JVD. CHEST: Clear breath sounds bilaterally. No wheezes, rales, or rhonchi. CARDIAC: Regular rate and rhythm. S1 and S2, without murmurs, gallops, or rubs. VASCULAR: No Edema. Peripheral pulses normal and equal in all extremities. ABDOMEN: Generalized tenderness abdomen is soft no masses no pulsatile masses. No point tenderness abdomen soft GASTROINTESTINAL: Bowel sounds normal GENITOURINARY: Normal, No tenderness LYMPATHTIC: No lymphadenopathy noted. MUSCULOSKELETAL: Patient has chronic low back pain. He is supposed to have a procedure done in [facility] to burn the nerves. NEUROLOGICAL: Alert and oriented x 3. No focal sensory or strength deficits. Speech normal. Follows commands appropriately. PSYCHIATRIC: Normal Affect, judgement and mood. SKIN: Normal appearance with no rashes or lesions. TRAVEL OUTSIDE OF THE [place] IN LAST 30 DAYS: No - HPI Patient complains to provider of: Abdominal pain, Other. No: Diarrhea, Vomiting Onset: Other - Back pain is chronic abdomen pain has been for about 2 months. He states his primary care gave him Augmentin about 2 weeks ago and it did not help his symptoms. Timing/Duration: Intermittent Quality of pain: Achy, Sharp Severity at maximum: Moderate Severity in ED: Moderate Pain Level: 3 - Headache is a 2 in his abdomen pain is a 3 Location: Other - Generalized abdominal pain with low back pain headache Associated symptoms: Other - Abdominal pain headache and chronic back pain. denies: Diarrhea, Nausea, Vomiting Exacerbated by: Movement Relieved by: Denies Similar symptoms previously: Yes Recently seen / treated by doctor: Yes - Related Data Allergies/Adverse Reactions: No Known Allergies Allergy (Verified 07/28/20 16:53) Past Medical History - General Information source: Patient - Social History Smoking Status: Never Smoker Chew tobacco use (# tins/day): No Frequency of alcohol use: None Drug Abuse: None Family History: CAD - Father, DM - Siblings Patient has homicidal ideation: No - Past Medical History Cardiac Medical History: Reports: Hx Coronary Artery Disease, Hx Hypercholesterolemia, Hx Hypertension Pulmonary Medical History: Reports: None EENT Medical History: Reports: None Neurological Medical History: Reports: None Endocrine Medical History: Reports: None Renal/ Medical History: Reports: None Malignancy Medical History: Reports None GI Medical History: Reports: Hx Diverticulitis, Hx Gastroesophageal Reflux Disease Musculoskeletal Medical History: Reports Hx Arthritis Skin Medical History: Reports None Psychiatric Medical History: Reports: None Traumatic Medical History: Reports: None Infectious Medical History: Reports: None Past Surgical History: Reports: Hx Appendectomy, Hx Bowel Surgery - r/t diverticulitis, Other - Colectomy: 2009, EGD and colonoscopy - Immunizations Hx Diphtheria, Pertussis, Tetanus Vaccination: Yes Hx Pneumococcal Vaccination: 08/09/11 Physical Exam - Vital signs Vitals: Temp Pulse Resp BP Pulse Ox 98.3 F 87 18 163/84 H 93 10/16/20 16:55 10/16/20 16:55 10/16/20 16:55 10/16/20 16:55 10/16/20 16:55 Course - Re-evaluation Re-evalutation: 10/17/20 08:49 Discussed labs and scans with patient written reports given to patient to follow-up with her primary care doctor. Discharge plans were discussed with patient and patient verbalized understanding and agree with treatment plan and he was discharged home. - Vital Signs Vital signs: Temp Pulse Resp BP Pulse Ox 97.6 F 74 20 136/88 H 100 10/17/20 00:07 10/17/20 00:07 10/17/20 00:07 10/17/20 00:07 10/17/20 00:07 - Laboratory Results Result Diagrams: 10/16/20 18:21 10/16/20 18:21 Laboratory Results Interpreted: 10/16/20 18:21 Hgb 12.8 L [place] % (Auto) 14.4 H Critical Laboratory Results Reviewed: No Critical Results - Radiology Results Critical Radiology Results Reviewed: No Critical Results Discharge - Discharge Clinical Impression: Abdominal pain Qualifiers: Abdominal location: left upper quadrant Qualified Code(s): R10.12 - Left upper quadrant pain Headache Qualifiers: Headache type: unspecified Headache chronicity pattern: chronic headache Intractability: not intractable Qualified Code(s): R51.9 - Headache, unspecified Condition: Stable Disposition: HOME, SELF-CARE Additional Instructions: ABDOMINAL PAIN: There are many causes of abdominal pain. Pain can mean a serious problem requiring surgery (such as appendicitis). It can also be an innocent problem that goes away on its own (such as a viral infection). Often, time must pass to determine the cause of pain. The physician does not feel that hospitalization is necessary, at present. Things may change within the next 24 hours. Call the doctor or come back for re- examination if any problems occur, such as: (1) Pain that becomes more severe, steady, or becomes concentrated in one specific area. Also, pain that is more severe with movement or coughing. (2) Vomiting that persists or becomes more frequent. (3) Blood in the vomitus, urine, or bowel movements. Blood in the stool may have a tarry or black appearance. (4) Shaking chills or fever greater than 100 degrees F. (5) The abdomen becomes more distended or swollen. (6) Bowel movements cease. (7) Failure to improve as expected. Your CT of the abdomen pelvis did not show any acute changes. They do not show any diverticulitis at this time. Please continue your antibiotics as prescribed and follow-up with your primary care doctor. Headache The physician does not feel that the headache you are experiencing has a serious underlying cause. Most headaches are due to emotional stress, with resultant muscle tension (tension headache). Occasionally, headaches are secondary to changes in the blood vessels of the scalp (vascular headache and migraine headache). Sometimes, a headache is the first symptom of another developing illness, such as a viral infection. You have no evidence of stroke, bleeding, meningitis, or other serious cause of your headache. The treatment of headaches varies with the severity and cause of the pain. Not all headaches need pain shots. In fact, there is evidence that using narcotics for headaches may make them worse in the long run. The physician will determine the therapy that's in your best interest. If you develop a fever, if the headache is different from any you've previously experienced, or if the headache progressively worsens, then call your physician at once or go to the emergency room. Head CT is negative for any acute changes. Please follow-up with your primary care in the next several days to have these monitored if your headaches continued. NORMAL EXAM AND WORKUP: At this time, your examination and workup show no significant abnormality. No significant abnormal physical findings are noted. All laboratory, EKG, and imaging (x-ray, CT scans, ultrasound) studies that were ordered show no significant abnormality. Although your examination and all studies that were ordered showed no significant abnormal finding, there are no examinations and no studies that are 100% accurate. There is always the possibility that some abnormality could exist and not be detected with physical examination or within the limits and capabilities of laboratory and other studies. You should return or follow up as you were instructed on your visit today for further evaluation if your symptoms do not resolve. PAIN MEDICATION INJECTION: You have received an injection of a pain medication. You should experience significant pain relief within 45 minutes. This drug is a narcotic -- it will impair your judgement, slow your reaction time and make you sleepy (as well as relieve your pain). Narcotics also can cause nausea. You should not drive, work with machinery, or perform any task requiring mental alertness until all effects of the medication are gone -- six to eight hours. Do not take any alcohol, or sedatives, and do not take any other medication without checking with your physician. You have been given a written report of all of your labs CT of the head and CT of the abdomen pelvis. Please follow-up with your primary care doctor in the next 3 to 5 days and take these results with you to this visit. No acute changes on either CT. Your lab work does not show any acute infection. FOLLOW-UP CARE: If you have been referred to a physician for follow-up care, call the physicians office for an appointment as you were instructed or within the next two days. If you experience worsening or a significant change in your symptoms, notify the physician immediately or return to the Emergency Department at any time for re-evaluation. Forms: Elevated Blood Pressure Referrals: SERA FRAIRE MD [NO LOCAL MD] - Follow up in 3-5 days
== END 2020-10-17 00:15 | disposition home or self-care (01) ==
LOC: ER 16:45
DX: R10.84 Generalized abdominal pain (principal); R51.9 Headache, unspecified; M54.5 Low back pain; G89.29 Other chronic pain; K57.90 Diverticulosis of intestine, part unspecified, without perforation or abscess without bleeding; I25.10 Atherosclerotic heart disease of native coronary artery without angina pectoris; I10 Essential (primary) hypertension; Z87.19 Personal history of other diseases of the digestive system; Z90.49 Acquired absence of other specified parts of digestive tract
CPT/HCPCS: 99285; 96374; 36415; 85025; 80053; 81001; 70450; 74177; J2270